=== PATIENT | male | born 1945 | race Caucasian/White ===

== ENCOUNTER → 2016-05-14 | Outpatient (CLI) | payer OTHER ==
[~2016-05-14] MED LIST: ACET1TAB84 PO; ADVIN10/60 INH; AMLO-110 PO; ATRIN INH; CYAN10005 PO; EZET10TA63 PO; LEVO175T25 PO; MULT-351 PO; NRN/300 PO; PANT40TA PO; QUIN20TA30 PO; TRAM-10 PO
[2016-05-14 12:53] LABS: BLOOD UREA NITROGEN 20 mg/dl (7-18); BUN/CREATININE RATIO 21.7 (10-20); CALCIUM 8.2 mg/dl (8.5-10.1); CARBON DIOXIDE 27 mmol/L (21-32); CHLORIDE 106 mmol/L (98-107); GLUCOSE 107 mg/dl (70-99); SODIUM 144 mmol/L (136-145)
[2016-05-14 12:57] LABS: ESTIMATED AVERAGE GLUCOSE 126 mg/dl; HA1C FLAG Normal (Normal)
== END | disposition home or self-care (01) ==
LOC: C.LABPVFM 08:05
PROVIDERS: ATTEND Family Medicine
DX: E11.9 Type 2 diabetes mellitus without complications (principal); I10 Essential (primary) hypertension

== ENCOUNTER → 2016-09-17 | Outpatient (CLI) | payer OTHER ==
[2016-09-17 14:15] LABS: BLOOD UREA NITROGEN 22 mg/dl (7-18); BUN/CREATININE RATIO 23.8 (10-20); CALCIUM 8.5 mg/dl (8.5-10.1); CARBON DIOXIDE 32 mmol/L (21-32); CHLORIDE 107 mmol/L (98-107); CREATININE 0.92 mg/dl (0.60-1.40); GLUCOSE 92 mg/dl (70-99); POTASSIUM 4.1 mmol/L (3.5-5.1); SODIUM 142 mmol/L (136-145)
[2016-09-17 14:29] LABS: CHOLESTEROL 162 mg/dl (0-200); CHOLESTEROL/HDL RATIO 2.7; HDL CHOLESTEROL 59 mg/dl; LDL CHOLESTEROL CALCULATED 85 mg/dl; TRIGLYCERIDES 92 mg/dl (0-150); VERY LOW DENSITY LIPOPROT CALC 18 mg/dl
== END | disposition home or self-care (01) ==
LOC: C.LABPVFM 07:22
PROVIDERS: ATTEND Family Medicine
DX: I10 Essential (primary) hypertension (principal); E03.9 Hypothyroidism, unspecified

== ENCOUNTER → 2017-01-07 | Outpatient (CLI) | payer OTHER ==
[2017-01-07 13:00] LABS: ESTIMATED AVERAGE GLUCOSE 134 mg/dl; HA1C FLAG Normal (Normal)
[2017-01-07 13:06] LABS: BLOOD UREA NITROGEN 20 mg/dl (7-18); BUN/CREATININE RATIO 23.1 (10-20); CARBON DIOXIDE 29 mmol/L (21-32); CHLORIDE 105 mmol/L (98-107); CREATININE 0.85 mg/dl (0.60-1.40); GLUCOSE 88 mg/dl (70-99); POTASSIUM 4.2 mmol/L (3.5-5.1); SODIUM 140 mmol/L (136-145)
== END | disposition home or self-care (01) ==
LOC: C.LABPVFM 07:21
PROVIDERS: ATTEND Family Medicine
DX: I10 Essential (primary) hypertension (principal); R73.09 Other abnormal glucose

== ENCOUNTER → 2017-03-14 | Outpatient (CLI) | payer OTHER ==
[2017-03-15 06:06] LABS: ESTIMATED AVERAGE GLUCOSE 131 mg/dl; HA1C FLAG Normal (Normal)
== END | disposition home or self-care (01) ==
LOC: C.LABPVFM 13:49
PROVIDERS: ATTEND Family Medicine
DX: G62.9 Polyneuropathy, unspecified (principal); R73.09 Other abnormal glucose

== ENCOUNTER → 2017-04-22 | Outpatient (CLI) | payer OTHER ==
--- NOTE | 2017-04-22 11:40 | DIAGNOSTIC IMAGING REPORT ---
CERVICAL WITHOUT CONTRAST HISTORY: 71 years-old Male NECK PAIN chronic neck pain with radiation into the bilateral upper extremities. History of prior neck surgery. COMPARISON: Cervical spine radiographs 04/19/2017 TECHNIQUE: Multiplanar multisequence MRI of the cervical spine was obtained without contrast. FINDINGS: 10 x 9 m area of increased T2 signal is noted involving the gabrielle as seen on image 8 of series 4 and image 8 of series 5. The remaining imaged posterior fossa structures are unremarkable. Signal within the cervical spinal cord is within normal limits. Mild Modic type I endplate changes are seen involving the inferior endplate T1. No acute fracture or subluxation. No significant bone marrow edema identified. There is bony fusion of the C6 and C7 vertebral bodies. 4 mm anterolisthesis C4 on C5 is noted, likely secondary to underlying facet disease. At least moderate degenerative changes are seen at the C1-C2 articulation. C2-C3: Moderate intervertebral disc space narrowing with uncovertebral spurring, moderate facet arthrosis and broad-based posterior disc bulge resulting in mild central canal and mild bilateral foraminal narrowing. C3-C4: Moderate to severe intervertebral disc space narrowing with circumferential annular disc bulge, posterior spondylitic spurring and moderate facet arthrosis. There is moderate central canal narrowing with AP dimension of the thecal sac measuring 6 mm. There is moderate right and mild to moderate left foraminal narrowing. C4-C5: Moderate intervertebral disc space narrowing with 4 mm anterolisthesis. Broad-based posterior disc bulge with posterior spondylitic spurring is noted in addition to moderate facet arthrosis. Findings cause mild central canal and mild bilateral foraminal narrowing. C5-C6: Moderate to severe intervertebral disc space narrowing with small posterior disc osteophyte complex and moderate facet arthrosis. Mild flattening of the ventral thecal sac without central canal narrowing. Mild to moderate bilateral foraminal narrowing. C6-C7: Bony fusion of the vertebral bodies at this level with mild posterior spondylitic spurring and mild facet arthrosis. Central canal and neuroforamen are patent. C7-T1: Moderate to severe intervertebral disc space narrowing with broad-based posterior disc osteophyte complex formation and moderate facet arthrosis. Flattening of the ventral thecal sac without significant central canal narrowing. Mild left and moderate to severe right foraminal narrowing. T1-T2: Moderate intervertebral disc space narrowing with broad-based posterior disc osteophyte complex and moderate facet arthrosis. Mild central canal and moderate right foraminal narrowing on the sagittal images alone. IMPRESSION: 1. Ill-defined area of increased T2 signal involving the central gabrielle measures up to 10 mm. This is nonspecific and could be further evaluated with MRI of the brain. 2. Multilevel intervertebral disc space narrowing, endplate spurring and facet arthrosis as detailed above. Moderate central canal narrowing is present at C3-C4 with mild central canal stenosis at C2-C3, C4-C5 and T1-T2. 3. Bony fusion of the C6 and C7 vertebral bodies. 4. 4 mm anterolisthesis C4 on C5, likely secondary to long-standing facet arthropathy. The above report was generated using voice recognition software. It may contain grammatical, syntax or spelling errors. Electronically signed by: Artur Padron M.D. 04/22/2017 11:38 AM Dictated Date/Time: 04/22/2017 9:38 AM
== END | disposition home or self-care (01) ==
LOC: C.MRI 08:31
PROVIDERS: ATTEND Orthopaedic Surgery Orthopaedic Surgery of the Spine
DX: M47.12 Other spondylosis with myelopathy, cervical region (principal); M54.2 Cervicalgia

== ENCOUNTER → 2017-05-12 | Outpatient (CLI) | payer OTHER | END | disposition home or self-care (01) | LOC: C.LABPVFM 14:19 | PROVIDERS: ATTEND Family Medicine | DX: M79.1 Myalgia (principal); M60.9 Myositis, unspecified ==

== ENCOUNTER → 2017-08-16 | Outpatient (CLI) | payer OTHER ==
[2017-08-16 13:12] LABS: BASO % 0.9 %; BASO ABS # 0.05 K/uL (0-0.2); EOS % 0.5 %; EOS ABS # 0.03 K/uL (0-0.5); HEMATOCRIT 45.4 % (42-52); HEMOGLOBIN 14.6 g/dL (14.0-18.0); IG# 0.01 K/uL (0.00-0.02); LYMPH % 21.2 %; LYMPH ABS # 1.19 K/uL (1.2-3.4); MEAN CELL VOLUME 88.2 fL (80-100); MEAN CORPUSCULAR HEMOGLOBIN 28.3 pg (25-34); MEAN CORPUSCULAR HGB CONC 32.2 g/dl (32-36); MEAN PLATELET VOLUME 10.2 fL (7.4-10.4); MONO ABS # 0.73 K/uL (0.11-0.59); NEUT % 64.2 %; PLATELET COUNT 350 K/uL (130-400); RED CELL DISTRIBUTION WIDTH CV 15.4 % (11.5-14.5); WHITE BLOOD COUNT 5.61 K/uL (4.8-10.8)
[2017-08-16 14:25] LABS: ALBUMIN 4.3 gm/dl (3.4-5.0); ALT/SGPT 38 U/L (12-78); BLOOD UREA NITROGEN 17 mg/dl (7-18); CALCIUM 8.9 mg/dl (8.5-10.1); CARBON DIOXIDE 28 mmol/L (21-32); CHOLESTEROL 160 mg/dl (0-200); CREATININE 1.03 mg/dl (0.60-1.40); GLUCOSE 100 mg/dl (70-99); POTASSIUM 3.9 mmol/L (3.5-5.1); SODIUM 138 mmol/L (136-145)
[2017-08-16 14:36] LABS: ALKALINE PHOSPHATASE 58 U/L (45-117); AST/SGOT 23 U/L (15-37); LDL CHOLESTEROL CALCULATED 85 mg/dl
== END | disposition home or self-care (01) ==
LOC: C.LABPVFM 08:46
PROVIDERS: ATTEND Family Medicine
DX: E03.9 Hypothyroidism, unspecified (principal); K21.0 Gastro-esophageal reflux disease with esophagitis; M54.16 Radiculopathy, lumbar region; E78.5 Hyperlipidemia, unspecified; K57.32 Diverticulitis of large intestine without perforation or abscess without bleeding

== ENCOUNTER 2017-12-24 11:55 | Emergency (ER) | payer OTHER ==
[~2017-12-24] VITALS: Ht 167.6 cm; Wt 106.0 kg
[~2017-12-24 11:55] MED LIST changes: -ADVIN25/60 INH; -LEVO175T PO; -LISI-726 PO; -MELO-84 PO; -RIVA1TAB7 OR
[2017-12-24 12:04] VITALS: TEMP 36.9; Ht 167.6 cm; Wt 106.0 kg
--- NOTE | 2017-12-24 12:22 | EMERGENCY ROOM VISIT NOTE ---
History Report prepared by Darren: Alli Asher Under the Supervision of: Dr. Orlando Nugent M.D. First contact with patient: 12:08 Chief Complaint: LEG PAIN,LEG INJURY Stated Complaint: PAIN & SWELLING IN LEFT FOOT & LEG History of Present Illness The patient is a 72 year old male who presents to the Emergency Room with complaints of constant pain in the left lower extremity that began at 1600 yesterday, 20 hours ago. The patient states that he was sitting at the kitchen table when the pain began and he denies any traumatic events. The patient denies any history of blood clots or anticoagulation use. He also denies any chest pain or shortness of breath. He does note that he has been being followed for some pain in the left ankle. He has had x-rays and an US performed on the LLE already today and was told to come to the emergency department. Source of History: patient Onset: 20 hours ago Position: leg (Lefty) Timing: constant Modifying Factors (Worsening): other (Denies trauma) Associated Symptoms: No chest pain, No SOB Review of Systems See HPI for pertinent positives and negatives. A total of ten systems were reviewed and were otherwise negative. Past Medical & Surgical Medical Problems: (1) Bronchitis (2) Cervicalgia (3) Chest pain (4) Chronic lower back pain (5) Chronic reflux esophagitis (6) Diabetes (7) Diverticulitis of the colon (8) Dysmetabolic syndrome X (9) Hypertension (10) Hypothyroidism (11) Kidney stones (12) Pneumonia Family History Diabetes mellitus FH: cancer FH: heart disease Hypertension Seizures Social History Smoking Status: Never Smoker Marital Status: Housing Status: lives with family Occupation Status: employed Current/Historical Medications Scheduled Acetaminophen (Tylenol Arthritis Ext Rel), 650 MG PO Q6 Amlodipine (Norvasc), 5 MG PO DAILY Cyanocobalamin (Vitamin B-12), 1,000 MCG PO DAILY Ezetimibe (Zetia), 10 MG PO DAILY Fluticasone Prop/Salmeterol (Advair Diskus 250/50 60 Dose), 1 PUFF INH BID Gabapentin (Neurontin), 300 MG PO BID Levothyroxine Sodium (Synthroid), 175 MCG PO DAILY Lisinopril (Lisinopril), 20 MG PO DAILY Multiple Vitamin (Multi Vitamin Mens), 1 TAB PO DAILY Pantoprazole (Protonix), 40 MG PO DAILY Rivaroxaban (Xarelto Starter Pack 15 & 20 mg), 15 MG OR BID Tramadol (Ultram), 50 MG PO 5XD Scheduled PRN Ipratropium Dunnell (Atrovent Hfa), 2 PUFFS INH QID PRN for SOB/Wheezing Meloxicam (Mobic), 15 MG PO DAILY PRN for Pain Allergies Coded Allergies: Clonidine (Verified Allergy, Intermediate, EDEMA/HIVES, 06/11/15) Codeine (Verified Allergy, Mild, RASH, 06/11/15) Adhesives (Verified Allergy, Unknown, TAPE, 06/11/15) Meperidine (Verified Allergy, Unknown, SWELLING, 06/11/15) Ondansetron (Verified Allergy, Unknown, swelling, 06/11/15) Sulfa Drugs (Verified Allergy, Unknown, BACTRIM, 06/11/15) Trimethoprim (Verified Allergy, Unknown, BACTRIM, 06/07/13) Zoster Vaccine Live (Verified Allergy, Unknown, TAKES STERIOD INJECTIONS, 12/24/17) Physical Exam Vital Signs Date Time Temp Pulse Resp B/P (MAP) Pulse Ox O2 Delivery O2 Flow Rate FiO2 12/24/17 12:55 73 20 160/89 96 12/24/17 12:04 36.9 72 18 140/77 97 Room Air Physical Exam Physical Exam GENERAL: He is oriented to person, place, and time. He appears well-developed and well-nourished. He does not appear distressed. HENT: Exam performed. Head: Normocephalic and atraumatic. Right Ear: External ear normal. No mastoid tenderness. Left Ear: External ear normal. No mastoid tenderness. Mouth/Throat: The oropharynx is clear and moist. No trismus in the jaw. No dental abscesses or uvula swelling. No oropharyngeal exudate or tonsillar abscesses. EYES: Conjunctivae and EOM are normal. Pupils are equal, round, and reactive to light. Right eye exhibits no discharge. Left eye exhibits no discharge. No scleral icterus. NECK: Normal range of motion. Neck supple. No JVD present. No spinous process tenderness present. No carotid bruit present. No rigidity. No tracheal deviation and normal range of motion present. No Brudzinski's sign and no Kernig 's sign noted. CV: Normal rate, regular rhythm, normal heart sounds and intact distal pulses. There is no peripheral edema. Palpable radial pulses bue. PULM/CHEST: Effort normal and breath sounds normal. No respiratory distress. No stridor. He has no wheezes. He has no rales. Chest Wall: He exhibits no tenderness. ABD: The abdomen is soft. Bowel sounds are normal. He has no distension. No mass is present. There is no tenderness. There is no rebound, no guarding, no Martell's sign and no tenderness at McBurney's point. Rovsig negative. MUSC/SKEL: Normal range of motion. There is pain on palpation of the left calf and left popiteal area. Palpable DP and PT pulses bilaterally. LYMPH: No cervical adenopathy. NEURO: He is alert and oriented to person, place, and time. He has normal strength. No cranial nerve deficit or sensory deficit. Coordination and gait normal. GCS eye subscore is 4. GCS verbal subscore is 5. GCS motor subscore is 6. Cerebellar tests wnl. SKIN: Skin is warm and dry. He is not diaphoretic. PSYCH: He has a normal mood and affect. Behavior is normal. Judgment and thought content normal. Medical Decision & Procedures ED Course 1217: The patient was evaluated in room B5. A complete history and physical exam was performed. Review of patient's outpatient studies today show LLE DVT. Patient reports no chest pain or difficulty breathing. Will discharge with Xarelto. DISCHARGE - Plan of care discussed with patient and questions answered. The patient was given both verbal and printed discharge instructions. The patient verbalized understanding and ability to comply. The patient is to seek outpatient follow up as noted in the discharge instructions. The patient verbalized understanding and ability to comply. The patient is discharged in stable condition. The patient was instructed to return for worsening symptoms. Medical Decision The patient was evaluated in room B5. A complete history and physical exam was performed. Review of patient's outpatient studies today show LLE DVT. Patient reports no chest pain or difficulty breathing. Will discharge with Xarelto. DISCHARGE - Plan of care discussed with patient and questions answered. The patient was given both verbal and printed discharge instructions. The patient verbalized understanding and ability to comply. The patient is to seek outpatient follow up as noted in the discharge instructions. The patient verbalized understanding and ability to comply. The patient is discharged in stable condition. The patient was instructed to return for worsening symptoms. Medication Reconcilliation Current Medication List: was personally reviewed by me Blood Pressure Screening Patient's blood pressure: Elevated blood pressure Blood pressure disposition: Elevated BP felt to be situational Impression Primary Impression: Deep vein thrombosis Scribe Attestation The scribe's documentation has been prepared under my direction and personally reviewed by me in its entirety. I confirm that the note above accurately reflects all work, treatment, procedures, and medical decision making performed by me. The chart was completed utilizing [employer] Speech voice recognition software. Grammatical errors, random word insertions, pronoun errors, and incomplete sentences are an occasional consequence of this system due to software limitations, ambient noise, and hardware issues. Any formal questions or concerns about the content, text, or information contained within the body of this dictation should be directly addressed to the physician for clarification. Departure Information Dispostion Home / Self-Care Prescriptions Rivaroxaban (Xarelto Starter Pack 15 & 20 mg) 1 Tab Tab 15 MG OR BID for 21 Days, #42 TABS take 15 mg PO BID with food for 21 days take 20 mg PO daily for 6 months after Prov: Orlando Nugent M.D. 12/24/17 Referrals No Doctor, Assigned (PCP) Patient Instructions My [facility] Problem Qualifiers Primary Impression: Deep vein thrombosis DVT location: lower extremity Affected thrombotic vein of extremity: unspecified vein of extremity Chronicity: acute Laterality: left Qualified Codes: I82.402 - Acute embolism and thrombosis of unspecified deep veins of left lower extremity
[2017-12-24] MEDS ORDERED: RIVA1TAB7 OR (12:34)
[2017-12-24 12:55] VITALS: BP 160/89; PULSE 73; O2SAT 96
[2017-12-24] MEDS ORDERED: ATRIN INH (12:59)
[2017-12-24] MEDS ORDERED: LEVO175T PO (12:59)
[2017-12-24] MEDS ORDERED: MELO-84 PO (12:59)
[2017-12-24] MEDS ORDERED: ADVIN25/60 INH (12:59)
[2017-12-24] MEDS ORDERED: LISI-726 PO (12:59)
== END 2017-12-24 12:57 | disposition home or self-care (01) ==
LOC: C.EDB 11:57
DX: I82.402 Acute embolism and thrombosis of unspecified deep veins of left lower extremity (principal); I10 Essential (primary) hypertension; E03.9 Hypothyroidism, unspecified; K21.0 Gastro-esophageal reflux disease with esophagitis; M54.5 Low back pain; G89.29 Other chronic pain; Z88.8 Allergy status to other drugs, medicaments and biological substances; Z88.6 Allergy status to analgesic agent; Z88.2 Allergy status to sulfonamides; Z88.1 Allergy status to other antibiotic agents; Z88.7 Allergy status to serum and vaccine

== ENCOUNTER → 2017-12-24 | Outpatient (CLI) | payer OTHER ==
[~2017-12-24] MED LIST changes: +ADVIN25/60 INH; -AMLO-110 PO; +AMLO5TAB3 PO; +LEVO175T PO; +LISI-726 PO; +MELO-84 PO; +RIVA1TAB7 OR
--- NOTE | 2017-12-24 11:14 | DIAGNOSTIC IMAGING REPORT ---
L ANKLE MIN 3 VIEWS ROUTINE CLINICAL HISTORY: 72 years-old Male presenting with M79.89 Left leg swelling left. TECHNIQUE: Frontal, mortise, and lateral views of the left ankle were obtained. COMPARISON: None. FINDINGS: Ankle mortise intact. Degenerative changes of the ankle mortise. Enthesophytes at the insertion of the Achilles tendon and origin of the plantar fascia. No acute fracture or malalignment. Talar dome intact. Phleboliths noted. Mild diffuse subcutaneous edema suggested. IMPRESSION: 1. No acute osseous injury. 2. Degenerative changes of the ankle as above. Electronically signed by: Peter Bhardwaj M.D. 12/24/2017 11:13 AM Dictated Date/Time: 12/24/2017 11:12 AM
--- NOTE | 2017-12-24 11:24 | DIAGNOSTIC IMAGING REPORT ---
L FOOT MIN 3 VIEWS ROUTINE CLINICAL HISTORY: 72 years-old Male presenting with M79.89 Left leg swelling left. TECHNIQUE: Frontal, oblique, and lateral views of the left foot were obtained. COMPARISON: None. FINDINGS: Partially visualized degenerative changes in the ankle. Excess renovascular noted. No acute fracture or malalignment. Prominent enthesophyte at the insertion of the Achilles tendon and origin of the plantar fascia. Mild degenerative changes in the midfoot-forefoot junction. Mild degenerative changes of the first metatarsophalangeal joint also suspected though joint spaces preserved. Diffuse soft tissue swelling. IMPRESSION: 1. No acute osseous injury. 2. Degenerative changes as above. Electronically signed by: Peter Bhardwaj M.D. 12/24/2017 11:23 AM Dictated Date/Time: 12/24/2017 11:21 AM
--- NOTE | 2017-12-24 11:50 | DIAGNOSTIC IMAGING REPORT ---
L VENOUS DOPP LOWER EXT UNILAT CLINICAL HISTORY: 72 years-old Male presenting with M79.89 Left leg swelling left. TECHNIQUE: Real-time grayscale and color and spectral Doppler ultrasound imaging of the veins of the left lower extremity was performed. Compression and augmentation were also utilized. COMPARISON: None. FINDINGS: LEFT: Common femoral vein: Patent. Greater saphenous vein: Patent. Deep femoral vein: Patent. Femoral vein: Patent. Popliteal vein: Patent. Calf veins: Duplicated posterior tibial veins, one of which demonstrates linear echogenic filling defects suggesting chronic thrombus. Filling defect is noted throughout the proximal to distal length of this vein. Anterior tibial and peroneal veins patent. Other: Note made of a 6.2 x 2.1 x 4.4 cm anechoic collection in the popliteal fossa of the knee, suggesting popliteal cyst. IMPRESSION: Deep venous thrombosis in one of 2 duplicated posterior tibial veins. No proximal extension. The appearance may favor chronic thrombus though an acute component cannot be excluded. The report will be called/faxed according to standard departmental protocol. Electronically signed by: Peter Bhardwaj M.D. 12/24/2017 11:48 AM Dictated Date/Time: 12/24/2017 11:46 AM
== END | disposition home or self-care (01) ==
LOC: C.RAD 10:26
PROVIDERS: ATTEND Internal Medicine
DX: M79.89 Other specified soft tissue disorders (principal); M19.072 Primary osteoarthritis, left ankle and foot; I82.442 Acute embolism and thrombosis of left tibial vein

== ENCOUNTER 2018-08-23 20:01 | Inpatient (IN) ==
[2018-08-23 20:51] LABS: Appearance Urine Clear (Clear); Bacteria Urine Automated Negative (Negative); Bilirubin Urine Negative (Negative); Blood Urine Negative (Negative); Cast Urine Automated 0 /lpf (0-5); Color Urine Yellow; Glucose Urine UA Negative (Negative); Ketones Urine Negative (Negative); Leukocyte Esterase Urine Negative (Negative); Nitrite Urine Negative (Negative); RBC Urine Automated 0-4 /hpf (0-4); Specific Gravity Urine 1.017 (1.000-1.030); Urobilinogen Urine Negative (Negative); WBC Urine Automated 0 /hpf (0-5); pH Urine 7.5 (4.5-7.5)
--- NOTE | 2018-08-23 20:51 | XRay Report ---
XR chest 1V portable CLINICAL HISTORY: Chest Pain dyspnea COMPARISON STUDY: 01/24/2018 FINDINGS: Mild chronic bibasilar interstitial change. No acute infiltrate. Mild stable cardiomegaly. IMPRESSION: Mild cardiomegaly. Otherwise negative study. The above report was generated using voice recognition software. It may contain grammatical, syntax or spelling errors. Electronically signed by: Nik Mendoza M.D. 08/23/2018 8:49 PM
[2018-08-23 20:59] LABS: Basophils # (auto) 0.03 K/uL (0-0.2); Basophils % (auto) 0.4 %; Eosinophils # (auto) 0.07 K/uL (0-0.5); Hematocrit (blood only) 40.6 % (42-52); Hemoglobin 12.9 g/dL (14.0-18.0); Immature Granulocytes # (auto) 0.02 K/uL (0.00-0.02); Immature Granulocytes % (auto) 0.3 %; Lymphocytes # (auto) 1.71 K/uL (1.2-3.4); Lymphocytes % (auto) 24.2 %; Mean Corpuscular Hgb Conc 31.8 g/dL (32-36); Mean Corpuscular Volume 83.9 fL (80-100); Mean Platelet Volume 9.7 fL (7.4-10.4); Monocytes # (auto) 1.09 K/uL (0.11-0.59); Monocytes % (auto) 15.4 %; Neutrophils # (auto) 4.15 K/uL (1.4-6.5); Neutrophils % (auto) 58.7 %; Platelet Count 235 K/uL (130-400); RDW Coefficient of Variation 16.6 % (11.5-14.5); RDW Standard Deviation 50.7 fL (36.4-46.3); Red Blood Count 4.84 M/uL (4.7-6.1); White Blood Count 7.07 K/uL (4.8-10.8)
[2018-08-23 21:01] LABS: Protein Urine Negative (Negative)
[2018-08-23 21:10] LABS: Partial Thromboplastin Time 27.9 Seconds (21.0-31.0); Prothrombin Time 10.7 Seconds (9.0-12.0)
[2018-08-23 21:17] LABS: Alanine Aminotransferase 31 U/L (12-78); Albumin Level 3.9 gm/dl (3.4-5.0); Aspartate Aminotransferase 20 U/L (15-37); Blood Urea Nitrogen 18 mg/dl (7-18); Calcium 8.9 mg/dl (8.5-10.1); Carbon Dioxide 27 mmol/L (21-32); Chloride 106 mmol/L (98-107); Creatinine Clr Calc Pharmacy 79.9 ml/min; Est GFR (African American) 90.7; Est GFR (Non-African American) 78.2; Glucose 115 mg/dl (70-99); Potassium 3.9 mmol/L (3.5-5.1); Sodium 140 mmol/L (136-145)
[2018-08-23 21:22] LABS: Alkaline Phosphatase 58 U/L (45-117); Bilirubin,Total 0.3 mg/dl (0.2-1); Creatine Kinase 286 U/L (39-308); Globulin 3.8 gm/dl (2.5-4.0); Total Protein 7.7 gm/dl (6.4-8.2); Troponin I < 0.015 ng/ml (0-0.045)
[2018-08-23] MEDS ORDERED: ACETAMINOPHEN 1,000 MG/100 ML VIAL IV STA (21:59)
[2018-08-23] MEDS ORDERED: GI COCKTAIL ED USE PO ONE (21:59)
[2018-08-23] MEDS ORDERED: SODIUM CHLORIDE 0.9% 1000ML 500 ML IV ONE (21:59)
[2018-08-23] MEDS ORDERED: FAMOTIDINE 20 MG TAB PO ONE (21:59)
[2018-08-23] MEDS ORDERED: OPTIRAY 320 125ml IV PRN (22:26)
--- NOTE | 2018-08-23 22:37 | CT Scan Report ---
CT angio chest PE protocol CT DOSE: 556.39 mGy.cm HISTORY: Pain PE TECHNIQUE: Multiaxial CT images of the chest were performed following the intravenous administration of contrast to evaluate the pulmonary arteries. Maximal intensity projection images were also obtaine d. A dose lowering technique was utilized adhering to the principles of ALARA. COMPARISON STUDY: 06/11/2014 FINDINGS: The thoracic aorta is normal in course and caliber. There are filling defects within the right lower lobe pulmonary arterial vasculature as well as the l eft lower lobe pulmonary arterial vasculature. Less prominent findings are seen in the upper lobe regions bilaterally. There is no evidence for a saddle embolus. Heart is mildly enlarged. Lungs are grossly clear. IMPRESSION: 1. Extensive bilateral acute pulmonary emboli. 2. Lungs are grossly clear. The above report was generated using voice recognition software. It may contain grammatical, syntax or spelling errors. Electronically signed by: Nik Mendoza M.D. 08/23/2018 10:35 PM
[2018-08-23] MEDS ORDERED: ENOXAPARIN 1 MG/KG SC STA (22:47)
[2018-08-23] MEDS ORDERED: ENOXAPARIN INJ 120 MG/0.8 ML SYR SQ STA (22:58)
[2018-08-24] MEDS ORDERED: MAGNESIUM HYDROXIDE SUSP 30 ML UDC PO PRN (00:10)
[2018-08-24] MEDS ORDERED: ACETAMINOPHEN 325 MG TAB PO PRN (00:10)
[2018-08-24] MEDS ORDERED: POLYETHYLENE (MIRALAX) 17 GM PACK PO PRN (00:10)
[2018-08-24] MEDS ORDERED: ALUMINUM/MAGNESIUM SUSP 30 ML UDC PO PRN (00:10)
--- NOTE | 2018-08-24 00:33 | History & Physical Report ---
Date of Service August 24, 2018 Assessment & Plan (1) Bilateral pulmonary embolism: 73-year-old male with a recent history of DVT in December treated with Xarelto, completed him July presents with shortness of breath Bilateral pulmonary embolism, hypoxia Admit to [facility] telemetry, continuous pulse ox, oxygen as needed Started on therapeutic Lovenox, 24-hour dose in the EDwill defer to day team regarding long-term anticoagulation Previously saw Denis for DVT Chest pain Initial troponin was negative, will continue to trend EKG did not show any acute changes COPD Continue Advair, Atrovent Patient needs more education, states that he takes Atrovent as rescue inhalerfollow-up Hypertension Continue lisinopril, amlodipine Chronic back pain Continue gabapentin, oxycodone GERD Continue PPI DVT prophylaxis Lovenox FEN Heart healthy CODE STATUS Full (2) COPD (chronic obstructive pulmonary disease): (3) Deep vein thrombosis: (4) Chest pain: (5) Hypothyroidism: (6) Hypertension: (7) Chronic reflux esophagitis: (8) Chronic lower back pain: History of Present Illness Primary Care Provider: Bony Zurita MD 73-year-old male with a past medical history of COPD, hypertension, hyperlipidemia and recent DVT (December 2017), who completed Xarelto treatment at the beginning of July presents to the hospital with shortness of breath and chest pain. He states that he started to feel short of breath since Tuesday and the symptoms have progressively gotten worse. He states that it is worse when he goes upstairs. Patient denies having any hemoptysis or calf tenderness. He describes having some chest painsharp pain when he takes a deep breath or leans forward. He says that he is recovering from a recent bout of diverti culitis and has been less active recently. Patient denied being bedridden. He denies any recent surgeries, long car rides or malignancy. Patient was diagnosed with a left lower extremity DVT in December and was treated for 6 months with Xarelto. He was seeing Dr. Barrios at that time. Constitutional; no fevers, chills, night sweats Abdomen; no abdominal pain, no nausea/vomiting/diarrhea Allergies Allergy/AdvReac Type Severity Reaction Status Date / Time Sulfa (Sulfonamide Allergy Severe Anaphylaxis Verified 08/23/18 23:38 Antibiotics) A CHILD trimethoprim Allergy Severe Anaphylaxis- Verified 08/23/18 23:38 A CHILD adhesive Allergy Intermediate TAPE-SKIN Verified 08/23/18 23:38 IRRITATION clonidine Allergy Intermediate EDEMA/HIVES Verified 08/23/18 23:38 meperidine Allergy Intermediate SWELLING Verified 08/23/18 23:38 ondansetron Allergy Intermediate swelling Verified 08/23/18 23:38 codeine Allergy Mild RASH Verified 08/23/18 23:38 zoster vaccine live Allergy Unknown TAKES Verified 08/23/18 23:38 STERIOD INJECTIONS Home Medications Home Medications Medication Instructions Recorded Confirmed Type acetaminophen 650 mg PO Q6H 01/24/18 08/23/18 History amlodipine 5 mg PO DAILY 01/24/18 08/23/18 History cyanocobalamin (vitamin B-12) 1,000 mcg PO DAILY 01/24/18 08/23/18 History [Vitamin B-12] ezetimibe [Zetia] 10 mg PO DAILY 01/24/18 08/23/18 History fluticasone propion-salmeterol 1 puff INHALATION BID 01/24/18 08/23/18 History [Advair Diskus] gabapentin 300 mg PO BID 01/24/18 08/23/18 History levothyroxine [Synthroid] 175 mcg PO DAILY 01/24/18 08/23/18 History lisinopril 20 mg PO HS 01/24/18 08/23/18 History wizfunzf-kzv-bcpdk-vit K-lycop 1 tab PO DAILY 01/24/18 08/23/18 History [Men's Multivitamin] pantoprazole 40 mg PO DAILY 01/24/18 08/23/18 History tramadol 50 mg PO QID 01/24/18 08/23/18 History diclofenac sodium 2 g TOPICAL QID PRN 08/23/18 08/23/18 History ipratropium bromide [Atrovent HFA] 1 puff INHALATION Q6H PRN 08/23/18 08/23/18 History Past Med/Surg History Medical History Chronic lower back pain (Chronic) Cervicalgia (Chronic) Chronic reflux esophagitis (Chronic) Hypertension (Chronic) Hypothyroidism (Chronic) Dysmetabolic syndrome X (Chronic) Diabetes (Chronic) Deep vein thrombosis (Acute) Family History Other Family history non-contributory Social History Preferred Language: Gabonese Communication Ability: Effective Probate Judge Required: No Beliefs That Will Affect Care: None Current Living Situation: Spouse Other Information That Helps Us Care for You: No Feels Safe at Home: Yes Safety Concerns: Feels Safe At This Time Smoking Status: Former smoker Tobacco Type: cigarettes Hx Alcohol Use: No Hx Substance Use: No Review of Systems Review of Systems: All systems reviewed & are unremarkable except as noted in HPI & below Physical Exam Vital Signs (Past 24 Hours): Last Vital Signs Temp 36.7 C 08/23/18 20:06 Pulse 99 H 08/24/18 00:11 Resp 18 08/24/18 00:11 BP 159/93 H 08/24/18 00:11 Pulse Ox 93 08/24/18 00:11 Constitutional: WD/WN, vitals as above Eyes: PERRL, conjunctivae normal, anicteric sclerae ENMT: external ear and nose normal, oropharynx normal Neck: trachea midline, no thyromegaly Respiratory: normal respiratory effort, lungs clear to auscultation Cardiovascular: RRR, no murmur, no edema Gastrointestinal (Abdomen): normal bowel sounds, soft, nontender, no hepatosplenomegaly Musculoskeletal: no cyanosis or clubbing, extremities motor strength 5/5 +1 bilateral lower extremity edema, no calf tenderness, no erythema Neurologic: PERRL, EOMI, accommodation nl, no face palsy, no dysarthria Psychiatric: A+Ox3, euthymic affect Results & Data Laboratory Results [place], [place] [phone] CT Scan Report Patient: ADAMARIS HOLCOMB JrAdmit Date: 08/23/18 MR#: [id number] Acct ID:[id number]: Date: [address] Zip: [place] [address] Age: 73Location: ED Sex: M Room/Bed: Att Phy: Diagnosis: CHEST PAIN, SOB Bree Phy: Bony Zurita MDService Date: 08/23/18 Fam Phy: Interpreting Phy: Nik Mendoza MD Admit Phy: Ordering Phy: Grzegorz Villaseñor M.D. cc: ~ CT angio chest PE protocol CT DOSE: 556.39 mGy.cm HISTORY: Pain PE TECHNIQUE: Multiaxial CT images of the chest were performed following the intravenous administration of contrast to evaluate the pulmonary arteries. Maximal intensity projection images were also obtained. A dose lowering technique was utilized adhering to the principles of ALARA. COMPARISON STUDY: 06/11/2014 FINDINGS: The thoracic aorta is normal in course and caliber. There are filling defects within the right lower lobe pulmonary arterial vasculature as well as the left lower lobe pulmonary arterial vasculature. Less prominent findings are seen in the upper lobe regions bilaterally. There is no evidence for a saddle embolus. Heart is mildly enlarged. Lungs are grossly clear. IMPRESSION: 1. Extensive bilateral acute pulmonary emboli. 2. Lungs are grossly clear. The above report was generated using voice recognition software. It may contain grammatical, syntax or spelling errors. Electronically signed by: Nik Mendoza M.D. 08/23/2018 10:35 PM Dictated: 08/23/182232 Transcribed: 08/23/182232 Laboratory Last Values WBC 7.07 K/uL (4.8-10.8) 08/23/18 20:16 RBC 4.84 M/uL (4.7-6.1) 08/23/18 20:16 Hgb 12.9 g/dL (14.0-18.0) L 08/23/18 20:16 Hct 40.6 % (42-52) L 08/23/18 20:16 MCV 83.9 fL (80-100) 08/23/18 20:16 MCH 26.7 pg (25-34) 08/23/18 20:16 MCHC 31.8 g/dL (32-36) L 08/23/18 20:16 RDW Std Deviation 50.7 fL (36.4-46.3) H 08/23/18 20:16 RDW Coeff of Bindu 16.6 % (11.5-14.5) H 08/23/18 20:16 Plt Count 235 K/uL (130-400) 08/23/18 20:16 MPV 9.7 fL (7.4-10.4) 08/23/18 20:16 Immature Gran % (Auto) 0.3 % 08/23/18 20:16 Neut % (Auto) 58.7 % 08/23/18 20:16 Lymph % (Auto) 24.2 % 08/23/18 20:16 Thomas % (Auto) 15.4 % 08/23/18 20:16 Eos % (Auto) 1.0 % 08/23/18 20:16 Baso % (Auto) 0.4 % 08/23/18 20:16 Immature Gran # (Auto) 0.02 K/uL (0.00-0.02) 08/23/18 20:16 Neut # (Auto) 4.15 K/uL (1.4-6.5) 08/23/18 20:16 Lymph # (Auto) 1.71 K/uL (1.2-3.4) 08/23/18 20:16 Thomas # (Auto) 1.09 K/uL (0.11-0.59) H 08/23/18 20:16 Eos # (Auto) 0.07 K/uL (0-0.5) 08/23/18 20:16 Baso # (Auto) 0.03 K/uL (0-0.2) 08/23/18 20:16 PT 10.7 Seconds (9.0-12.0) 08/23/18 20:16 INR 1.0 (0.9-1.1) 08/23/18 20:16 APTT 27.9 Seconds (21.0-31.0) 08/23/18 20:16 PTT Ratio 1.0 08/23/18 20:16 Sodium 140 mmol/L (136-145) 08/23/18 20:16 Potassium 3.9 mmol/L (3.5-5.1) 08/23/18 20:16 Chloride 106 mmol/L (98-107) 08/23/18 20:16 Carbon Dioxide 27 mmol/L (21-32) 08/23/18 20:16 Anion Gap 7.0 (3-11) 08/23/18 20:16 BUN 18 mg/dl (7-18) 08/23/18 20:16 Creatinine 0.97 mg/dl (0.6-1.4) 08/23/18 20:16 Est Cr Clr Drug Dosing 79.9 ml/min 08/23/18 20:16 Est GFR ( Amer) 90.7 08/23/18 20:16 Est GFR (Non-Af Amer) 78.2 08/23/18 20:16 BUN/Creatinine Ratio 19.0 (10-20) 08/23/18 20:16 Glucose 115 mg/dl (70-99) H 08/23/18 20:16 Calcium 8.9 mg/dl (8.5-10.1) 08/23/18 20:16 Total Bilirubin 0.3 mg/dl (0.2-1) 08/23/18 20:16 AST 20 U/L (15-37) 08/23/18 20:16 ALT 31 U/L (12-78) 08/23/18 20:16 Alkaline Phosphatase 58 U/L (45-117) 08/23/18 20:16 Total Creatine Kinase 286 U/L (39-308) 08/23/18 20:16 CK-MB (CK-2) 7.0 ng/ml (0.5-3.6) H 08/23/18 20:16 CK/CKMB % Calc 2.4 (0-3.0) 08/23/18 20:16 Troponin I < 0.015 ng/ml (0-0.045) 08/23/18 20:16 Total Protein 7.7 gm/dl (6.4-8.2) 08/23/18 20:16 Albumin 3.9 gm/dl (3.4-5.0) 08/23/18 20:16 Globulin 3.8 gm/dl (2.5-4.0) 08/23/18 20:16 Albumin/Globulin Ratio 1.0 (0.9-2) 08/23/18 20:16 Lipase 108 U/L (73-393) 08/23/18 20:16 Urine Color Yellow 08/23/18 20:16 Urine Appearance Clear (Clear) 08/23/18 20:16 Urine pH 7.5 (4.5-7.5) 08/23/18 20:16 Ur Specific [place] 1.017 (1.000-1.030) 08/23/18 20:16 Urine Protein Negative (Negative) 08/23/18 20:16 Urine Glucose (UA) Negative (Negative) 08/23/18 20:16 Urine Ketones Negative (Negative) 08/23/18 20:16 Urine Blood Negative (Negative) 08/23/18 20:16 Urine Nitrite Negative (Negative) 08/23/18 20:16 Urine Bilirubin Negative (Negative) 08/23/18 20:16 Urine Urobilinogen Negative (Negative) 08/23/18 20:16 Ur Leukocyte Esterase Negative (Negative) 08/23/18 20:16 Urine WBC (Auto) 0 /hpf (0-5) 08/23/18 20:16 Urine RBC (Auto) 0-4 /hpf (0-4) 08/23/18 20:16 U Hyaline Cast (Auto) 0 /lpf (0-5) 08/23/18 20:16 U Epithel Cells (Auto) 5-10 /lpf (0-5) H 08/23/18 20:16 Urine Bacteria (Auto) Negative (Negative) 08/23/18 20:16 Supervising Physician Co-Signing Physician Notes Attending addendum: I have physically seen this patient, have supervised the medical residents activities, and agree with the H&P unless as otherwise noted. Assessment and Plan: Bilateral pulmonary emboli/history left lower extremity DVT 12/24 treated with Xarelto/residual chronic DVT per patient- Received therapeutic Lovenox 1.5 mg kilogram subcu by the ED. Lower extremity venous Dopplers ordered. Follow serial troponins and echocardiogram. Continue usual inhalers of Advair and Atrovent. Duo nebs available to use as needed. Consult Dr. Barrios, hematology, who treated previous DVT. Remainder of orders and notations as noted. Resident Activity Tracking Resident Involvement: Resident Care Provided Care Provided: Adult [facility]
[2018-08-24] MEDS ORDERED: IPRATROPIUM BROMIDE HFA INHALER INH PRN (01:25)
[2018-08-24 02:11] LABS: Basophils # (auto) 0.03 K/uL (0-0.2); Basophils % (auto) 0.3 %; Eosinophils # (auto) 0.07 K/uL (0-0.5); Eosinophils % (auto) 0.8 %; Hematocrit (blood only) 38.1 % (42-52); Immature Granulocytes # (auto) 0.01 K/uL (0.00-0.02); Immature Granulocytes % (auto) 0.1 %; Lymphocytes # (auto) 1.87 K/uL (1.2-3.4); Lymphocytes % (auto) 21.4 %; Mean Corpuscular Hgb Conc 31.5 g/dL (32-36); Mean Corpuscular Volume 81.8 fL (80-100); Mean Platelet Volume 9.4 fL (7.4-10.4); Monocytes # (auto) 0.95 K/uL (0.11-0.59); Monocytes % (auto) 10.9 %; Neutrophils # (auto) 5.81 K/uL (1.4-6.5); Neutrophils % (auto) 66.5 %; Platelet Count 241 K/uL (130-400); RDW Coefficient of Variation 16.6 % (11.5-14.5); RDW Standard Deviation 49.4 fL (36.4-46.3); Red Blood Count 4.66 M/uL (4.7-6.1); White Blood Count 8.74 K/uL (4.8-10.8)
--- NOTE | 2018-08-24 02:14 | Emergency Department Note ---
Entered by Jon Chang acting as a scribe for Grzegorz Villaseñor MD History of Present Illness General Chief complaint: Chest Pain Stated complaint: CHEST PAIN, SOB Time Seen by Provider: 08/23/18 21:46 Source: patient Limitations: no limitations History of Present Illness Onset (ago): day(s) 3 Location: chest Pain Consistency: + constant Quality: + constant Relieved By: + rest (prior episodes) Associated symptoms: + chest pain, + cough, + headaches and + shortness of breath The patient is a 73 year old male who presents to the Emergency Room with complaints of constant chest pain starting 3 days ago. The patient states he had an episode of SOB 3 days ago when he was exerting himself and it resolved once he had some rest. He states he had another episode of SOB 2 days ago and it resolved again when he had some rest. He states tonight he climbed the stairs and started to have SOB, and this happened 3 hours ago. He states he had pressure in his chest and has headaches. The patient states he felt normal this morning. He states his baseline includes back pain resulting from multiple back surgeries. He states he has chronic knee pain too because of surgeries. He notes he has left-sided headaches intermittently. He notes he has a history of a blood clot below his knee. He states he was put on blood thinners for 6 months and it ended a month ago. He states he follows up with Dr. Rapp and Dr. Rapp states he has chronic problems with is left leg but does not think it is severe. He states he was seen in the ED on January 24 because he woke up with left- sided headache and bad hearing. The patient notes 3 weeks ago he was treated for a flare-up of diverticulitis. He states he took 10 days of Augmentin. He notes he has a cyst behind his left knee. The patient notes his last stress test was 4 years ago. The patient denies fevers, cold symptoms, and congestion. The patient notes his PCP prescribed him Voltaren and stated he was unable to take Mobic because of his esophagitis. Home Medications Home Medications Medication Instructions Recorded Confirmed Type acetaminophen 650 mg PO Q6H 01/24/18 08/23/18 History amlodipine 5 mg PO DAILY 01/24/18 08/23/18 History cyanocobalamin (vitamin B-12) 1,000 mcg PO DAILY 01/24/18 08/23/18 History [Vitamin B-12] ezetimibe [Zetia] 10 mg PO DAILY 01/24/18 08/23/18 History fluticasone propion-salmeterol 1 puff INHALATION BID 01/24/18 08/23/18 History [Advair Diskus] gabapentin 300 mg PO BID 01/24/18 08/23/18 History levothyroxine [Synthroid] 175 mcg PO DAILY 01/24/18 08/23/18 History lisinopril 20 mg PO HS 01/24/18 08/23/18 History fhkugewc-xcd-edwmy-vit K-lycop 1 tab PO DAILY 01/24/18 08/23/18 History [Men's Multivitamin] pantoprazole 40 mg PO DAILY 01/24/18 08/23/18 History tramadol 50 mg PO QID 01/24/18 08/23/18 History diclofenac sodium 2 g TOPICAL QID PRN 08/23/18 08/23/18 History ipratropium bromide [Atrovent HFA] 1 puff INHALATION Q6H PRN 08/23/18 08/23/18 History Allergies Allergy/AdvReac Type Severity Reaction Status Date / Time Sulfa (Sulfonamide Allergy Severe Anaphylaxis Verified 08/23/18 23:38 Antibiotics) A CHILD trimethoprim Allergy Severe Anaphylaxis- Verified 08/23/18 23:38 A CHILD adhesive Allergy Intermediate TAPE-SKIN Verified 08/23/18 23:38 IRRITATION clonidine Allergy Intermediate EDEMA/HIVES Verified 08/23/18 23:38 meperidine Allergy Intermediate SWELLING Verified 08/23/18 23:38 ondansetron Allergy Intermediate swelling Verified 08/23/18 23:38 codeine Allergy Mild RASH Verified 08/23/18 23:38 zoster vaccine live Allergy Unknown TAKES Verified 08/23/18 23:38 STERIOD INJECTIONS Past Med/Surg History Medical History Chronic lower back pain (Chronic) Cervicalgia (Chronic) Chronic reflux esophagitis (Chronic) Hypertension (Chronic) Hypothyroidism (Chronic) Dysmetabolic syndrome X (Chronic) Diabetes (Chronic) Deep vein thrombosis (Acute) Family History Other Family history non-contributory Social History Preferred Language: [place] Communication Ability: Effective Manager Adult Required: No Beliefs That Will Affect Care: None Current Living Situation: Spouse Other Information That Helps Us Care for You: No Feels Safe at Home: Yes Safety Concerns: Feels Safe At This Time Smoking Status: Former smoker Tobacco Type: cigarettes Hx Alcohol Use: No Hx Substance Use: No Review of Systems See HPI for pertinent positives & negatives. and A total of 10 systems reviewed and were otherwise negative Physical Exam Vital Signs Vital Signs - 24 hr 08/23/18 20:06 08/23/18 22:13 08/23/18 22:18 Temperature 36.7 C Temperature Source Oral Sepsis Recent Fever Within 48 Hours No Sepsis New/Unexplained Change in Mental Status No Sepsis Action Taken by Nursing No Action Required Pulse Rate 110 H Pulse Rate [Apical] 110 H Pulse Rhythm Regular Pulse Rhythm [Apical] Pulse Strength Normal Pulse Strength [Apical] Respiratory Rate 20 16 Respiratory Effort / Characteristics Non-Labored Spontaneous Non-Labored Spontaneous Respiratory Depth Normal Normal Respiratory Pattern Blood Pressure 183/105 H Blood Pressure [Right Arm] 180/93 H Blood Pressure Mean 131 Blood Pressure Mean [Right Arm] 122 Blood Pressure Position Lying Blood Pressure Position [Right Arm] Pulse Oximetry 93 89 L Oxygen Delivery Method Room Air Room Air Nasal Cannula Oxygen Flow Rate 08/23/18 22:31 08/24/18 00:11 08/24/18 01:40 Temperature 36.9 C Temperature Source Oral Sepsis Recent Fever Within 48 Hours Sepsis New/Unexplained Change in Mental Status Sepsis Action Taken by Nursing Pulse Rate Pulse Rate [Apical] 98 H 99 H 100 H Pulse Rhythm Pulse Rhythm [Apical] Regular Regular Regular Pulse Strength Pulse Strength [Apical] Normal Normal Normal Respiratory Rate 16 18 20 Respiratory Effort / Characteristics Non-Labored Spontaneous Non-Labored Spontaneous Non-Labored Respiratory Depth Normal Normal Normal Respiratory Pattern Regular Regular Regular Blood Pressure Blood Pressure [Right Arm] 174/95 H 159/93 H 144/83 H Blood Pressure Mean Blood Pressure Mean [Right Arm] 121 115 103 Blood Pressure Position Blood Pressure Position [Right Arm] Lying Pulse Oximetry 94 93 92 Oxygen Delivery Method Nasal Cannula Room Air Room Air Oxygen Flow Rate 3 08/24/18 04:00 Temperature 36.8 C Temperature Source Oral Sepsis Recent Fever Within 48 Hours Sepsis New/Unexplained Change in Mental Status Sepsis Action Taken by Nursing Pulse Rate Pulse Rate [Apical] 89 Pulse Rhythm Pulse Rhythm [Apical] Regular Pulse Strength Pulse Strength [Apical] Normal Respiratory Rate 20 Respiratory Effort / Characteristics Non-Labored Respiratory Depth Normal Respiratory Pattern Regular Blood Pressure Blood Pressure [Right Arm] 138/78 Blood Pressure Mean Blood Pressure Mean [Right Arm] 98 Blood Pressure Position Blood Pressure Position [Right Arm] Lying Pulse Oximetry 91 Oxygen Delivery Method Room Air Oxygen Flow Rate GENERAL: Awake, alert, fatigued-appearing, in no distress HENT: Normocephalic, atraumatic. Oropharynx with dry mucous membranes and otherwise unremarkable. EYES: Normal conjunctiva. Sclera non-icteric. NECK: Supple. No nuchal rigidity. FROM. No JVD. RESPIRATORY: Clear to auscultation. CARDIAC: Tachycardic rate, normal rhythm. Extremities warm and well perfused. Pulses equal. ABDOMEN: Soft, non-distended. No rebound or guarding. No masses. Mild epigastric discomfort without discrete tenderness. RECTAL: Deferred. MUSCULOSKELETAL: Chest examination reveals no tenderness. The back is symmetrical on inspection without obvious abnormality. There is no CVA tenderness to palpation. No joint edema. LOWER EXTREMITIES: Calves are equal size bilaterally and non-tender. No discoloration. Scant bilateral lower edema. NEURO: Normal sensorium. No sensory or motor deficits noted. SKIN: No rash or jaundice noted. Course 2158: The patient was evaluated in room B10, and a complete history and physical examination were performed. 2149: I reviewed the patient's case with Dr. Angeles - [facility]. He will evaluate the patient for further management. Administered Medications Acetaminophen (Tylenol) 650 mg PO Q6H ALEXIS Stop: 09/23/18 03:59 Last Admin: 08/24/18 04:11 Dose: 650 mg Documented by: [id number] Gabapentin (Neurontin) 300 mg PO BID ALEXIS Stop: 09/23/18 01:24 Last Admin: 08/24/18 04:11 Dose: 300 mg Documented by: [id number] Ioversol (Optiray 320 125ml) 112 ml IV ONCE PRN PRN Reason: Interaction Checking Stop: 08/27/18 22:25 Last Admin: 08/23/18 22:26 Dose: 112 ml Documented by: [id number] Levothyroxine Sodium (Synthroid) 175 mcg PO DAILYBB ALEXIS Stop: 09/23/18 06:29 Last Admin: 08/24/18 04:11 Dose: 175 mcg Documented by: [id number] Discontinued Medications Al Hydrox/Mg Hydrox/Simethicone () 1 dose PO ONE ONE Stop: 08/23/18 22:00 Last Admin: 08/23/18 22:13 Dose: 1 dose Documented by: [id number] Enoxaparin Sodium (Lovenox) 111 mg SQ NOW STA Stop: 08/23/18 22:59 Last Admin: 08/24/18 00:29 Dose: 111 mg Documented by: [id number] Famotidine (Pepcid) 20 mg PO NOW ONE Stop: 08/23/18 22:00 Last Admin: 08/23/18 22:13 Dose: 20 mg Documented by: [id number] Acetaminophen (Ofirmev) 1,000 mg in 100 mls @ 400 mls/hr IV NOW STA Stop: 08/23/18 22:13 Last Infusion: 08/23/18 22:31 Dose: 0 mls/hr Documented by: [id number] Admin: 08/23/18 22:13 Dose: 400 mls/hr Documented by: [id number] Sodium Chloride (Nss 1000ml) 500 mls @ 999 mls/hr IV .Q31M ONE Stop: 08/23/18 22:29 Last Infusion: 08/23/18 22:52 Dose: 0 mls/hr Documented by: [id number] Admin: 08/23/18 22:13 Dose: 999 mls/hr Documented by: [id number] Medical Decision Making Differential Diagnosis Differential diagnosis: Etiologies such as infections, reactive airway disease, COPD, pneumonia, pleural effusion, pulmonary edema, ARDS, pneumothorax, CHF, cardiac ischemia, cardiac tamponade, dysrhythmia, anemia, pulmonary embolism, musculoskeletal, gastrointestinal process, as well as others were entertained. Medical Records Attestation: I reviewed the patient's medical records. Home Medications Current Medication List: was personally reviewed by me Laboratory Data Attestation: I reviewed the patient's lab results. Result diagrams: 08/24/18 01:52 08/24/18 01:52 Lab Results 08/23/18 08/23/18 08/23/18 Range/Units 20:16 20:16 20:16 WBC 7.07 (4.8-10.8) K/uL RBC 4.84 (4.7-6.1) M/uL Hgb 12.9 L (14.0-18.0) g/dL Hct 40.6 L (42-52) % MCV 83.9 (80-100) fL MCH 26.7 (25-34) pg MCHC 31.8 L (32-36) g/dL RDW Std Deviation 50.7 H (36.4-46.3) fL RDW Coeff of Bindu 16.6 H (11.5-14.5) % Plt Count 235 (130-400) K/uL MPV 9.7 (7.4-10.4) fL Immature Gran % (Auto) 0.3 % Neut % (Auto) 58.7 % Lymph % (Auto) 24.2 % [place] % (Auto) 15.4 % Eos % (Auto) 1.0 % Baso % (Auto) 0.4 % Immature Gran # (Auto) 0.02 (0.00-0.02) K/uL Neut # (Auto) 4.15 (1.4-6.5) K/uL Lymph # (Auto) 1.71 (1.2-3.4) K/uL [place] # (Auto) 1.09 H (0.11-0.59) K/uL Eos # (Auto) 0.07 (0-0.5) K/uL Baso # (Auto) 0.03 (0-0.2) K/uL PT (9.0-12.0) Seconds INR (0.9-1.1) APTT (21.0-31.0) Seconds PTT Ratio Sodium 140 (136-145) mmol/L Potassium 3.9 (3.5-5.1) mmol/L Chloride 106 (98-107) mmol/L Carbon Dioxide 27 (21-32) mmol/L Anion Gap 7.0 (3-11) BUN 18 (7-18) mg/dl Creatinine 0.97 (0.6-1.4) mg/dl Est Cr Clr Drug Dosing 79.9 ml/min Est GFR ( Amer) 90.7 Est GFR (Non-Af Amer) 78.2 BUN/Creatinine Ratio 19.0 (10-20) Glucose 115 H (70-99) mg/dl Calcium 8.9 (8.5-10.1) mg/dl Total Bilirubin 0.3 (0.2-1) mg/dl AST 20 (15-37) U/L ALT 31 (12-78) U/L Alkaline Phosphatase 58 (45-117) U/L Total Creatine Kinase 286 (39-308) U/L CK-MB (CK-2) 7.0 H (0.5-3.6) ng/ml CK/CKMB % Calc 2.4 (0-3.0) Troponin I < 0.015 (0-0.045) ng/ml Total Protein 7.7 (6.4-8.2) gm/dl Albumin 3.9 (3.4-5.0) gm/dl Globulin 3.8 (2.5-4.0) gm/dl Albumin/Globulin Ratio 1.0 (0.9-2) Lipase 108 (73-393) U/L Urine Color Yellow Urine Appearance Clear (Clear) Urine pH 7.5 (4.5-7.5) Ur Specific [place] 1.017 (1.000-1.030) Urine Protein Negative (Negative) Urine Glucose (UA) Negative (Negative) Urine Ketones Negative (Negative) Urine Blood Negative (Negative) Urine Nitrite Negative (Negative) Urine Bilirubin Negative (Negative) Urine Urobilinogen Negative (Negative) Ur Leukocyte Esterase Negative (Negative) Urine WBC (Auto) 0 (0-5) /hpf Urine RBC (Auto) 0-4 (0-4) /hpf U Hyaline Cast (Auto) 0 (0-5) /lpf U Epithel Cells (Auto) 5-10 H (0-5) /lpf Urine Bacteria (Auto) Negative (Negative) 08/23/18 08/24/18 08/24/18 Range/Units 20:16 01:52 01:52 WBC 8.74 (4.8-10.8) K/uL RBC 4.66 L (4.7-6.1) M/uL Hgb 12.0 L (14.0-18.0) g/dL Hct 38.1 L (42-52) % MCV 81.8 (80-100) fL MCH 25.8 (25-34) pg MCHC 31.5 L (32-36) g/dL RDW Std Deviation 49.4 H (36.4-46.3) fL RDW Coeff of Bindu 16.6 H (11.5-14.5) % Plt Count 241 (130-400) K/uL MPV 9.4 (7.4-10.4) fL Immature Gran % (Auto) 0.1 % Neut % (Auto) 66.5 % Lymph % (Auto) 21.4 % [place] % (Auto) 10.9 % Eos % (Auto) 0.8 % Baso % (Auto) 0.3 % Immature Gran # (Auto) 0.01 (0.00-0.02) K/uL Neut # (Auto) 5.81 (1.4-6.5) K/uL Lymph # (Auto) 1.87 (1.2-3.4) K/uL [place] # (Auto) 0.95 H (0.11-0.59) K/uL Eos # (Auto) 0.07 (0-0.5) K/uL Baso # (Auto) 0.03 (0-0.2) K/uL PT 10.7 (9.0-12.0) Seconds INR 1.0 (0.9-1.1) APTT 27.9 (21.0-31.0) Seconds PTT Ratio 1.0 Sodium 138 (136-145) mmol/L Potassium 3.8 (3.5-5.1) mmol/L Chloride 107 (98-107) mmol/L Carbon Dioxide 27 (21-32) mmol/L Anion Gap 4.0 (3-11) BUN 16 (7-18) mg/dl Creatinine 0.88 (0.6-1.4) mg/dl Est Cr Clr Drug Dosing 88.1 ml/min Est GFR ( Amer) 100.2 Est GFR (Non-Af Amer) 86.4 BUN/Creatinine Ratio 18.7 (10-20) Glucose 102 H (70-99) mg/dl Calcium 8.4 L (8.5-10.1) mg/dl Total Bilirubin (0.2-1) mg/dl AST (15-37) U/L ALT (12-78) U/L Alkaline Phosphatase (45-117) U/L Total Creatine Kinase (39-308) U/L CK-MB (CK-2) (0.5-3.6) ng/ml CK/CKMB % Calc (0-3.0) Troponin I 0.169 H* (0-0.045) ng/ml Total Protein (6.4-8.2) gm/dl Albumin (3.4-5.0) gm/dl Globulin (2.5-4.0) gm/dl Albumin/Globulin Ratio (0.9-2) Lipase (73-393) U/L Urine Color Urine Appearance (Clear) Urine pH (4.5-7.5) Ur Specific [place] (1.000-1.030) Urine Protein (Negative) Urine Glucose (UA) (Negative) Urine Ketones (Negative) Urine Blood (Negative) Urine Nitrite (Negative) Urine Bilirubin (Negative) Urine Urobilinogen (Negative) Ur Leukocyte Esterase (Negative) Urine WBC (Auto) (0-5) /hpf Urine RBC (Auto) (0-4) /hpf U Hyaline Cast (Auto) (0-5) /lpf U Epithel Cells (Auto) (0-5) /lpf Urine Bacteria (Auto) (Negative) Imaging Data Radiologist's Impression: Radiology results as stated below per my review and the radiologist's interpretation: XR chest 1V portable CLINICAL HISTORY: Chest Pain dyspnea COMPARISON STUDY: 01/24/2018 FINDINGS: Mild chronic bibasilar interstitial change. No acute infiltrate. Mild stable cardiomegaly. IMPRESSION: Mild cardiomegaly. Otherwise negative study. The above report was generated using voice recognition software. It may contain grammatical, syntax or spelling errors. Electronically signed by: Nik Mendoza M.D. 08/23/2018 8:[address] angio chest PE protocol CT DOSE: 556.39 mGy.cm HISTORY: Pain PE TECHNIQUE: Multiaxial CT images of the chest were performed following the intravenous administration of contrast to evaluate the pulmonary arteries. Maximal intensity projection images were also obtained. A dose lowering technique was utilized adhering to the principles of ALARA. COMPARISON STUDY: 06/11/2014 FINDINGS: The thoracic aorta is normal in course and caliber. There are filling defects within the right lower lobe pulmonary arterial vasculature as well as the left lower lobe pulmonary arterial vasculature. Less prominent findings are seen in the upper lobe regions bilaterally. There is no evidence for a saddle embolus. Heart is mildly enlarged. Lungs are grossly clear. IMPRESSION: 1. Extensive bilateral acute pulmonary emboli. 2. Lungs are grossly clear. The above report was generated using voice recognition software. It may contain grammatical, syntax or spelling errors. Electronically signed by: Nik Mendoza M.D. 08/23/2018 10:35 PM ECG Data Attestation: I personally reviewed and interpreted this ECG as follows: Indication: SOB/dyspnea Rate (beats per minute): 110 Rhythm: sinus tachycardia Findings: + other (nonspecific T wave abnormality), + nonspecific-ST abn and + PVC (occasional ); no acute ischemic change Blood Pressure Blood Pressure Findings: Elevated blood pressure Blood Pressure Disposition: further management by hospitalist FAUSTINO Narrative The patient is a pleasant 73-year-old gentleman with a past medical history of hypertension, COPD/asthma, still left lower extremity DVT recently completing 6 months of anticoagulation with Xarelto last month who presents emergency department with worsening dyspnea on exertion and chest pain per hpi. On arrival patient is fatigued appearing but no acute distress, afebrile, HR 100s and otherwise stable vital signs. EKG demonstrates sinus tachycardia with occasional PVCs and nonspecific ST and T wave abnormalities. Otherwise, no overt acute ischemia. Chest x-ray with cardiomegaly but otherwise no acute cardiopulmonary process. WBC within normal limits. H/H 12.9/40.6 without recent values for comparison though, decreased from January 2018 of 14.2/43.8. Platelets wnl. Chemistry without acidosis. Troponin negative. CTA of the chest demonstrates extensive bilateral pulmonary emboli. Patient ordered for Lovenox. Patient updated on findings, treatment pain, and admission. Patient an d agreeable. Case was discussed with Dr. Angeles, [facility] hospitalist, who will evaluate the patient for admission. Impression & Plan Bilateral pulmonary embolism Critical Care Time I have personally spent 35 minutes of critical care time in the direct management of this patient. This includes bedside care, interpretation of diagnostic studies, and testing, discussion with consultants, patient, and family members, and other required patient management activities. This 35 minutes is in excess of all separately billable procedures. Critical Care Time: Yes Total Critical Care Time: 35 Discharge Plan Visit Data *Final* Discharge Date/Time: 08/24/18 00:33 Chief Complaint: Chest Pain Stated Complaint: CHEST PAIN, SOB ED Provider: Grzegorz Villaseñor Discharge Problem: Bilateral pulmonary embolism Patient Disposition: Admitted As Inpatient Discharge Instructions Interventions: ED Discharge Assessment Last Done: 08/24/18 00:33 The scribe's documentation has been prepared under my direction and personally reviewed by me in its entirety. I confirm that the note above accurately reflect s all work, treatment, procedures, and medical decision making performed by me.
[2018-08-24 02:36] LABS: BUN Creatinine Ratio 18.7 (10-20); Calcium 8.4 mg/dl (8.5-10.1); Creatinine Clr Calc Pharmacy 88.1 ml/min; Est GFR (African American) 100.2; Est GFR (Non-African American) 86.4; Potassium 3.8 mmol/L (3.5-5.1)
[2018-08-24 02:48] LABS: Troponin I 0.169 ng/ml (0-0.045)
[2018-08-24] MEDS: ACETAMINOPHEN 325 MG TAB PO SCH ×4 (04:11→22:58)
[2018-08-24] MEDS: LEVOTHYROXINE SODIUM 175 MCG TABLET PO SCH (04:11)
[2018-08-24] MEDS: GABAPENTIN 300 MG CAP PO SCH ×3 (04:11→20:10)
--- NOTE | 2018-08-24 07:15 | Ultrasound Report ---
BILATERAL LOWER EXTREMITY VENOUS DOPPLER HISTORY: Pulmonary embolus. Assess for DVT. COMPARISON STUDY: Left lower extremity venous Doppler study 05/29/2018. FINDINGS: There is occlusive thrombus seen within the right popliteal vein. Nonocclusive thrombus see n within the right peroneal veins and left posterior tibial veins. The left posterior tibial vein thr ombosis is likely chronic. There are bilateral popliteal cysts. IMPRESSION: 1. Occlusive thrombus within the right popliteal vein which may be acute. 2. Nonocclusive thrombus seen within the right peroneal veins and left posterior tibial veins. 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 Electronically signed by: Ja Mead M.D. 08/24/2018 7:14 AM
[2018-08-24] MEDS: EZETIMIBE 10 MG TABLET PO SCH (08:14)
[2018-08-24] MEDS: PANTOprazole 40 MG TAB PO SCH (08:14)
[2018-08-24] MEDS: FLUTICASONE/SALMETEROL 250/50 (ADVAIR) 14 PUFF/1 INHALER INH SCH ×2 (08:14→20:10)
[2018-08-24] MEDS: TRAMADOL HCL 50 MG TABLET PO SCH ×4 (08:16→20:10)
[2018-08-24] MEDS ORDERED: Nursing to Pharmacy Communication ONE (08:17)
[2018-08-24] MEDS ORDERED: AMLODIPINE BESYLATE 5 MG TAB PO SCH ×2 (09:00→17:00)
--- NOTE | 2018-08-24 10:49 | Cardiology Consultation ---
Date of Consultation August 24, 2018 Assessment & Plan (1) Bilateral pulmonary embolism: He had a left DVT last summer, now presents with bilateral PE and evidence of thrombus in his right leg although not in the deep vein system as near as I can tell by the report. This is worrisome in view of no precipitating factors in either case and he has been very active up until this happened. I would be concerned about a hypercoagulable state. In any case however he should be treated with anticoagulation, since this does not represent a failure of the newer agents but no recurrence after discontinuation I would use Eliquis or Xarelto, I prefer Eliquis but he has been on Xarelto before. It probably should be continued indefinitely, but I think an evaluation with his voltage inspector (which he is seen recently) would be in order. (2) Chest pain: He has a long history of chest pain. He has several reasons for having chest discomfort including some type of difficulty with his joints (although he has never been evaluated for Ehrlos Danlos) resulting in discomfort and tendon tears in his large joints as well as what he describes as GERD. He does not feel that the symptoms have changed lately, however it is worrisome that he had these symptoms on presentation and had slight enzyme rise. At some point I think we need to evaluate him for coronary artery disease despite a negative stress test 3 years ago. I do not think we should do that right now, I would probably wait at least a month or so before doing a stress test and I do not think a catheterization is indicated. (3) Hypertension: He has long-standing hypertension and his blood pressure in the emergency room was quite elevated. His blood pressure is better now. At home he is on low-dose amlodipine and lisinopril 20 mg daily. I would strongly consider adding a beta-mary ellen to his regimen, even if it means decreasing his lisinopril somewhat. (4) Elevated troponin: He had an elevated troponin shortly after admission, it was not elevated at all when he arrived in the emergency room and then peaked at 0.169 on his second set with the third being slightly lower. It is not too surprising that he had an elevated troponin however the timing is a little bit suspicious. His symptoms were quite severe for several days prior to admission, they did get worse the day he came in troponins typically come up fairly quickly and his did not come up until after he was admitted. He was quite hypertensive and quite tachycardic on his initial evaluation and for several hours thereafter and this may be adequate explanation for it. His electrocardiogram however suggests inferolateral ST depression consistent with possible ischemia. His second electrocardiogram looks improved. He is not having an acute cardiac event, but I am concerned that he may have underlying coronary artery disease which was uncovered by the stress of his presentation. I do not think we should perform catheterization now, however I think we will need to do stress testing in the future and I would not be surprised if he has coronary artery disease. He should be treated for it, he is on Zetia although a statin would be a better option and a beta-mary ellen would probably be reasonable to add. I have not made these medication changes. History of Present Illness Reason for Consultation: Abnormal cardiac enzymes, chest discomfort Attending Physician: Syed Garcia MD History of Present Illness This is a very pleasant 73-year-old gentleman who has risk factors for coronary artery disease including hypercholesterolemia and hypertension but has never had documented heart disease. He does have chest discomfort which is chronic and may be associated with GERD or chest wall discomfort and has had a dobutamine stress test (he has trouble with his knees and cannot walk on a treadmill) 3 years ago which was negative for ischemia at 98% of his predicted maximal heart rate. He is very active, he chops wood, shovels coal, takes care of property including trees and mowing as well as working in his shop and has never had clear anginal symptoms. Over the summer 2017 he developed left leg swelling, a DVT was diagnosed without associated PE. He was placed on Xarelto, reevaluation in July of this year included a left leg ultrasound which showed 6 no acute findings although it sounds from his description as though there was residual laminated thrombus and the recommendation was to stop Xarelto. He then presented with exertional shortness of breath over the last 4 days, it got significantly worse yesterday and he came to the emergency room. He had no associated leg swelling. He did have exertional chest discomfort which he attributed to his long-standing chest discomfort. In the emergency room he was found to have bilateral pulmonary emboli as well as right leg venous thrombosis, not the left which was the site of his prior thrombosis. Of note his cardiac enzymes were slightly elevated after admission, but not in the emergency room. His electrocardiogram was also slightly abnormal but not with an acute injury pattern. At the time of my evaluation today he is feeling well, he is having no further shortness of breath and is not having chest discomfort. He has however been inactive. Allergies Allergy/AdvReac Type Severity Reaction Status Date / Time Sulfa (Sulfonamide Allergy Severe Anaphylaxis Verified 08/23/18 23:38 Antibiotics) A CHILD trimethoprim Allergy Severe Anaphylaxis- Verified 08/23/18 23:38 A CHILD adhesive Allergy Intermediate TAPE-SKIN Verified 08/23/18 23:38 IRRITATION clonidine Allergy Intermediate EDEMA/HIVES Verified 08/23/18 23:38 meperidine Allergy Intermediate SWELLING Verified 08/23/18 23:38 ondansetron Allergy Intermediate swelling Verified 08/23/18 23:38 codeine Allergy Mild RASH Verified 08/23/18 23:38 zoster vaccine live Allergy Unknown TAKES Verified 08/23/18 23:38 STERIOD INJECTIONS Home Medications Home Medications Medication Instructions Recorded Confirmed Type acetaminophen 650 mg PO Q6H 01/24/18 08/23/18 History amlodipine 5 mg PO DAILY 01/24/18 08/23/18 History cyanocobalamin (vitamin B-12) 1,000 mcg PO DAILY 01/24/18 08/23/18 History [Vitamin B-12] ezetimibe [Zetia] 10 mg PO DAILY 01/24/18 08/23/18 History fluticasone propion-salmeterol 1 puff INHALATION BID 01/24/18 08/23/18 History [Advair Diskus] gabapentin 300 mg PO BID 01/24/18 08/23/18 History levothyroxine [Synthroid] 175 mcg PO DAILY 01/24/18 08/23/18 History lisinopril 20 mg PO HS 01/24/18 08/23/18 History ssrsqigy-ori-feksb-vit K-lycop 1 tab PO DAILY 01/24/18 08/23/18 History [Men's Multivitamin] pantoprazole 40 mg PO DAILY 01/24/18 08/23/18 History tramadol 50 mg PO QID 01/24/18 08/23/18 History diclofenac sodium 2 g TOPICAL QID PRN 08/23/18 08/23/18 History ipratropium bromide [Atrovent HFA] 1 puff INHALATION Q6H PRN 08/23/18 08/23/18 History Patient History Medical History Chronic lower back pain (Chronic) Cervicalgia (Chronic) Chronic reflux esophagitis (Chronic) Hypertension (Chronic) Hypothyroidism (Chronic) Dysmetabolic syndrome X (Chronic) Diabetes (Chronic) Deep vein thrombosis (Acute) Family History Other Family history non-contributory Social History Preferred Language: Kinyarwanda Communication Ability: Effective Research Affiliate Required: No Beliefs That Will Affect Care: None Current Living Situation: Spouse Other Information That Helps Us Care for You: No Feels Safe at Home: Yes Safety Concerns: Feels Safe At This Time Smoking Status: Former smoker Tobacco Type: cigarettes Hx Alcohol Use: No Hx Substance Use: No Review of Systems Review of Systems: All systems reviewed & are unremarkable except as noted in HPI & below Physical Exam Physical Exam: Constitutional: Alert, cooperative and in no distress. HEENT: Unremarkable Neck: No jugular venous distention, carotid pulses are normal and equal bilaterally without bruits. Pulmonary: Clear to auscultation bilaterally. Cardiac: Regular rhythm with no murmur, gallop or rub. Abdomen: Soft, nontender with normal bowel sounds. Extremities: No edema. Distal pulses intact. Neurologic: No focal findings. Gait is steady. Skin: No rash, ecchymoses or petechiae. Results & Data Vital Signs (Past 12 Hours) Vital Signs Temp Pulse Pulse Pulse Resp BP Pulse Ox 08/24/18 07:39 89 08/24/18 07:17 36.9 C 62 16 130/78 98 08/24/18 04:00 36.8 C 89 20 138/78 91 08/24/18 01:40 36.9 C 100 H 20 144/83 H 92 08/24/18 00:11 99 H 18 159/93 H 93 Diagnostic Findings Electrocardiogram done on arrival in the emergency room shows sinus tachycardia at 110 bpm with inferolateral T wave abnormalities including lateral ST depression. Frequent premature ventricular beats. Another electrocardiogram done at the time of my evaluation this morning shows sinus rhythm with nonspecific inferolateral ST-T abnormalities, somewhat improved from the initial. An echocardiogram was done this morning, I reviewed it but it has not been formally read as yet. Left ventricular function appears to be normal, there seems to be evidence of right sided pressure. Telemetry: Sinus rhythm and sinus tachycardia, PVCs overload.
[2018-08-24] MEDS ORDERED: ENOXAPARIN INJ 120 MG/0.8 ML SYR SC SCH (14:00)
[2018-08-24] MEDS: ENOXAPARIN INJ 120 MG/0.8 ML SYR SC SCH ×2 (14:09→22:59)
[2018-08-24] MEDS ORDERED: LOVENOX TEACHING KIT PRN (18:59)
--- NOTE | 2018-08-24 19:07 | Hospitalist Progress Note ---
Date of Service August 24, 2018 Assessment & Plan (1) Bilateral pulmonary embolism: He had a left DVT last summer, now presents with bilateral PE and evidence of thrombus in his right leg although not in the deep vein system as near as I can tell by the report. Personally spoke with Dr. Barrios , oncology he states that there is no defined evidence of recurrent DVT PE that is unprovoked is definitely associated with malignancy to the point where we would need to have a blind pain scan. However the patient does have focal complaints or problems he could focus on those. He did have a colonoscopy in 2013 without any evidence of polyps. He was given a 10-year repeat colonoscopy recommendation. Patient is on Lovenox at this point time he will have some home teaching however considering re-engaging his Xarelto could be undertaken. Dr. Barrios did recommend a antiphospholipid panel be sent (2) Chest pain: He has a long history of chest pain. a negative stress test 3 years ago. Chest pain is reproducible and pleuritic. He was seen by cardiology who feels he may do a stress test in the future once his pulmonary embolism has some time to stabilize perhaps in [address] Boone did see the patient additionally an echo was performed without any right ventricular strain (3) Hypertension: He has long-standing hypertension and his blood pressure, amlodipine and lisinopril 20 mg daily. (4) Elevated troponin: He had an elevated troponin shortly after admission, it was not elevated at all when he arrived in the emergency room and then peaked at 0.169 on his second set with the third being slightly lower. This is felt to be likely myocardial demand ischemia and not an an STEMI Subjective Patient has some still some residual chest pain is no leg pain. Family is at present the bedside and all questions were answered Review of Systems Review of Systems: ROS: well nourished well developed. No double vision blurry vision No problems with speech or swallowing No palpitations, has some substernal chest pain pleuritic in nature No Wheezing dyspnea on exertion No abdominal pain nausea vomiting diarrhea changes in appetite or weight No burning urine urine frequency or changes in color No focal joint pain or muscle pain trace bilateral lower leg swelling complaints No skin rashes or oral lesions No unusual bruising or bleeding No focused back pain or numbness or loss of strength No changes in memory or confusion Physical Exam Physical Exam: The patient appeared in mild to moderate discomfort Vital signs as documented. He is not hypoxic Head exam is unremarkable. normocephalic, atraumatic Neck is without jugular venous distension, thyromegaly, or lymphademopathy Lungs are clear to auscultation and percussion. No rub is heard Cardiac exam reveals Rhythm is regular. As well as reproducibly tender Abdominal exam reveals normal bowel sounds, no masses, no organomegaly Extremities are mildly edematous and both pedal pulses are present Neurologic exam is A&Ox3, no focal deficits, strength is equal bilateral Psychologically seems neither anxious or depressed Skin is warm Dry without bruises or lesions Results & Data Vital Signs (Past 12 Hours) Vital Signs Temp Pulse Pulse Pulse Resp BP Pulse Ox 08/24/18 16:00 37.1 C 90 18 133/85 94 08/24/18 11:28 37.2 C 88 16 163/82 H 92 08/24/18 07:39 89 08/24/18 07:17 36.9 C 62 16 130/78 98
[2018-08-24] MEDS ORDERED: LISINOPRIL 20 MG TAB PO SCH (21:00)
[2018-08-25] MEDS: ACETAMINOPHEN 325 MG TAB PO SCH ×2 (03:56→09:24)
[2018-08-25] MEDS: LEVOTHYROXINE SODIUM 175 MCG TABLET PO SCH (06:16)
[2018-08-25] MEDS: FLUTICASONE/SALMETEROL 250/50 (ADVAIR) 14 PUFF/1 INHALER INH SCH (08:18)
[2018-08-25] MEDS: GABAPENTIN 300 MG CAP PO SCH (08:18)
[2018-08-25] MEDS: PANTOprazole 40 MG TAB PO SCH (08:18)
[2018-08-25] MEDS: EZETIMIBE 10 MG TABLET PO SCH (08:18)
[2018-08-25] MEDS: TRAMADOL HCL 50 MG TABLET PO SCH (08:21)
[2018-08-25] MEDS: ENOXAPARIN INJ 120 MG/0.8 ML SYR SC SCH (09:23)
--- NOTE | 2018-08-25 10:21 | Cardiology Progress Note ---
Date of Service August 25, 2018 Assessment & Plan (1) Bilateral pulmonary embolism: He had a left DVT last summer, now presents with bilateral PE and evidence of thrombus in his right leg although not in the deep vein system as near as I can tell by the report (perhaps that embolized). This is worrisome in view of no precipitating factors in either case and he has been very active up until this happened. I would be concerned about a hypercoagulable state. In any case however he should be treated with anticoagulation, since this does not represent a failure of the newer agents but a new recurrence after discontinuation I would use Eliquis or Xarelto, I prefer Eliquis but he has been on Xarelto before. It probably should be continued indefinitely, but I agree an evaluation by his hop strainer would be in order. (2) Chest pain: He has a long history of chest pain. He has several reasons for having chest discomfort including some type of difficulty with his joints (although he has never been evaluated for Ehrlos Danlos) resulting in discomfort and tendon tears in his large joints as well as what he describes as GERD. He does not feel that the symptoms have changed lately, however it is worrisome that he had these symptoms on presentation and had slight enzyme rise. At some point I think we need to evaluate him for coronary artery disease despite a negative stress test 3 years ago. I do not think we should do that right now, I would probably wait at least a month or so before doing a stress test and I do not think a catheterization is indicated. (3) Hypertension: He has long-standing hypertension and his blood pressure in the emergency room was quite elevated. His blood pressure is better now. At home he is on low-dose amlodipine and lisinopril 20 mg daily. I would strongly consider adding a beta-mary ellen to his regimen, even if it means decreasing his lisinopril somewhat. (4) Elevated troponin: He had an elevated troponin shortly after admission, it was not elevated at all when he arrived in the emergency room and then peaked at 0.169 on his second set with the third being slightly lower. It is not too surprising that carolyn carrizales had an elevated troponin however the timing is a little bit suspicious. His symptoms were quite severe for several days prior to admission, they did get worse the day he came in but troponins typically come up fairly quickly and his did not come up until after he was admitted. He was quite hypertensive and quite tachycardic on his initial evaluation and for several hours thereafter and this may be adequate explanation for it. His electrocardiogram however suggests inferolateral ST depression consistent with possible ischemia. His second electrocardiogram looks improved. He is not having an acute cardiac event, but I am concerned that he may have underlying coronary artery disease which was uncovered by the stress of his presentation. I do not think we should perform catheterization now, however I think we will need to do stress testing in the future and I would not be surprised if he has coronary artery disease. He should be treated for it, he is on Zetia although a statin would be a better option and a beta-mary ellen would probably be reasonable to add. I have not made these medication changes. He is planning on a trip out to [place] to an altitude of about 7000 feet on September 06, 2018 and will stay there for about 5 days. That is perhaps a little concerning given his recent PE, I am not sure what the recommendations are for air travel or for staying at that altitude about 3 weeks after a large PE. With his possibility of coronary artery disease we do have to worry a little bit about myocardial ischemia if he would become hypoxic. Subjective Patient feels well today, he is not having shortness of breath and not having chest discomfort. He may have a little bit of right calf discomfort but not much. Physical Exam Physical Exam: Constitutional: Alert, cooperative and in no distress. Pulmonary: Clear to auscultation bilaterally. Cardiac: Regular rhythm with no murmur, gallop or rub. Abdomen: Soft, nontender with normal bowel sounds. Extremities: No edema. Skin: No rash, ecchymoses or petechiae. Results & Data Vital Signs (Past 12 Hours) Vital Signs Temp Pulse Pulse Resp BP Pulse Ox 08/25/18 08:00 90 08/25/18 07:18 36.7 C 86 20 117/75 93 08/25/18 03:44 36.8 C 86 18 122/84 93 08/25/18 01:46 94 H 08/24/18 23:00 37.3 C 89 18 144/75 H 92
--- NOTE | 2018-08-25 18:45 | Discharge Summary ---
Date of Service August 25, 2018 Admission HPI Per Admitting Provider 73-year-old male with a past medical history of COPD, hypertension, hyperlipidemia and recent DVT (December 2017), who completed Xarelto treatment at the beginning of July presents to the hospital with shortness of breath and chest pain. He states that he started to feel short of breath since Tuesday and the symptoms have progressively gotten worse. He states that it is worse when he goes upstairs. Patient denies having any hemoptysis or calf tenderness. He describes having some chest painsharp pain when he takes a deep breath or leans forward. He says that he is recovering from a recent bout of diverticuli tis and has been less active recently. Patient denied being bedridden. He denies any recent surgeries, long car rides or malignancy. Patient was diagnosed with a left lower extremity DVT in December and was treated for 6 months with Xarelto. He was seeing Dr. Barrios at that time. Constitutional; no fevers, chills, night sweats Abdomen; no abdominal pain, no nausea/vomiting/diarrhea Principal Diagnosis Bilateral pulmonary embolism and DVT Discharge Exam Constitutional well developed and average body habitus Eyes no conjunctival abnormality and no scleral abnormality Neck normal visual inspection and trachea midline Respiratory normal respiratory effort; no respiratory distress Auscultation: lungs clear to auscultation bilaterally Cardiovascular Rate/Rhythm: regular rate and regular rhythm Gastrointestinal (Abdomen) normal bowel sounds, soft, nontender, no hepatosplenomegaly Discharge Data Allergies Allergy/AdvReac Type Severity Reaction Status Date / Time Sulfa (Sulfonamide Allergy Severe Anaphylaxis Verified 08/23/18 23:38 Antibiotics) A CHILD trimethoprim Allergy Severe Anaphylaxis- Verified 08/23/18 23:38 A CHILD adhesive Allergy Intermediate TAPE-SKIN Verified 08/23/18 23:38 IRRITATION clonidine Allergy Intermediate EDEMA/HIVES Verified 08/23/18 23:38 meperidine Allergy Intermediate SWELLING Verified 08/23/18 23:38 ondansetron Allergy Intermediate swelling Verified 08/23/18 23:38 codeine Allergy Mild RASH Verified 08/23/18 23:38 zoster vaccine live Allergy Unknown TAKES Verified 08/23/18 23:38 STERIOD INJECTIONS Consultations 08/23/18 22:46 ED Decision to Admit Stat 08/24/18 00:11 Consult Case Management - Discharge Planning Routine 08/24/18 03:09 Consult Cardiology Routine Ordered Studies 08/23/18 21:59 CT angio chest PE protocol Stat 08/23/18 23:04 US venous doppler [facility] Urgent Hospital Course (1) Bilateral pulmonary embolism: He had a left DVT last summer, now presents with bilateral PE and evidence of thrombus in his right leg although not in the deep vein system as near as I can tell by the report. Personally spoke with Dr. Barrios , oncology he states that there is no defined evidence of recurrent DVT PE that is unprovoked is definitely associated with malignancy to the point where we would need to have a blind pain scan. However the patient does have focal complaints or problems he could focus on those. He did have a colonoscopy in 2013 without any evidence of polyps. He was given a 10-year repeat colonoscopy recommendation. Patient will be transition to Xarelto as he has tolerated this in the past Dr. Barrios did recommend a antiphospholipid panel be sent we will follow-up with the patient in his office (2) Chest pain: He has a long history of chest pain. a negative stress test 3 years ago. Chest pain is reproducible and pleuritic. He was seen by cardiology who feels he may do a stress test in the future once his pulmonary embolism has some time to stabilize perhaps in [address] Boone did see the patient additionally an echo was performed without any right ventricular strain he recommended instituting beta-mary ellen which we will do by holding his amlodipine and starting metoprolol succinate. There is discussion about changing his Zetia to a more formal high potency statin however given the fact that his troponin may be more demand ischemia we will let his primary care physician make that decision (3) Hypertension: He has long-standing hypertension and his blood pressure, metoprolol XL and lisinopril 20 mg daily. (4) Elevated troponin: He had an elevated troponin shortly after admission, it was not elevated at all when he arrived in the emergency room and then peaked at 0.169 on his second set with the third being slightly lower. This is felt to be likely myocardial demand ischemia and not an an STEMI Total Time Total Time Spent Total Time Spent (In Minutes): greater than 30 minutes were required to prepare discharge Discharge Plan Discharge Items Patient Disposition: Home - Self-Care Reason For Visit: BILATERAL PE, HYPOXIA Discharge Diagnosis: pulmonary embolism Discharge Goals: Decrease discomfort, Diagnostic testing and Improve disease control Activity: Resume your previous activity Non-emergency contact: Primary Care Provider Call non-emergency contact if: you have any medication questions Follow-up/Referrals: Bony Zurita MD [Primary Care Provider] - 08/29/18 10:30 am (Please, follow up at [facility] Office with Dr. Zruita on TuesdayAugust 29 at 10:30 am. *If you need to change this appointment, call the office at [phone].) Codey Barrios [Physician] - 08/30/18 12:50 pm (Please, follow up at Dr. Barrios's office with his associate, Rosalinda PIÑA, on TuesdayAugust 30 at 12:50 pm. *If you need to change this appointment, call their office at [phone].) Diet: Regular Addtl Provider Instructions: start xarelto tonight Cardiology, has recommended some medications changes. Also to discuss with your primary care doctor to discuss other options for colesterol treatment Prescriptions: New Xarelto 15 mg tablet 15 mg PO BID 21 Days Qty: 42 RF: 0 Xarelto 20 mg tablet 20 mg PO DAILY Qty: 30 RF: 5 metoprolol succinate 25 mg tablet extended release 24 hr 25 mg PO DAILY Qty: 30 RF: 0 Continued Atrovent HFA 17 mcg/actuation Hfa Aerosol Inhaler 1 puff INHALATION Q6H PRN (Reason: Shortness Of Breath Or Wheezing) RF: 0 diclofenac sodium 1 % Gel 2 g TOPICAL QID PRN (Reason: Pain) RF: 0 levothyroxine 175 mcg tablet 175 mcg PO DAILY RF: 0 fluticasone propion-salmeterol 250-50 mcg/dose blister with device 1 puff Inhalation BID RF: 0 acetaminophen 325 mg Tablet 650 mg PO Q6H RF: 0 lisinopril 20 mg tablet 20 mg PO HS RF: 0 cyanocobalamin (vitamin B-12) [Vitamin B-12] 1,000 mcg Tablet 1,000 mcg PO DAILY RF: 0 tramadol 50 mg tablet 50 mg PO QID RF: 0 pantoprazole 40 mg tablet,delayed release (DR/EC) 40 mg PO DAILY RF: 0 gabapentin 300 mg capsule 300 mg PO BID RF: 0 ezetimibe 10 mg tablet 10 mg PO DAILY RF: 0 Men's Multivitamin 400-20-300 mcg Tablet 1 tab PO DAILY RF: 0 Discontinued amlodipine 5 mg tablet 5 mg PO DAILY RF: 0 Stand-Alone Forms: Call Back Authorization, [facility] Discharge Orders: Discharge Order (Routine); Ordered 08/25/18 Ordered By: Syed Garcia Admission Data Admit Date/Time: 08/24/18 00:10 Attending Provider: Syed Garcia Admit Provider: Gonzalo Lundy Primary Care Provider: Bony Zurita Other Providers: Ja Angeles ; Paco Boone ; Rubin Angeles Service: Telemetry Medical Other Interventions: Discharge Summary Assessment (RN) Last Done: 08/25/18 11:06 DC Date/Time DO NOT enter until pt leaves facility: 08/25/18 11:33
[2018-08-25] MEDS ORDERED: ENOXAPARIN INJ 120 MG/0.8 ML SYR SC SCH (22:00)
--- NOTE | 2018-08-28 12:30 | Coding Query ---
CODING QUERY To promote full compliance with coding requirements relating to patient care, provider participation is requested in all cases of experimental mechanic spacecraft uncertainty. Please assist us with the question(s) below: Coding Question(s): 1. The Discharge Summary documents Principal Diagnosis of Bilateral Pulmonary Embolism and DVT. There is a documented history of left leg DVT and there is documentation of, "evidence of thrombus in his right leg although not deep in the deep vein system as near as I can tell by the report." The Venous Doppler shows, under impression: 1. Occlusive thrombus within the right popliteal vein which may be acute. 2. Nonocclusive thrombus seen within the right peroneal veins and left posterior tibial veins. The left posterior tibial vein thrombosis is likely chronic. Please clarify below, in your clinical opinion, regarding the DVT. ( xxx ) Acute DVT of the Right leg ( ) Chronic DVT of the Right leg ( ) Acute DVT of the Left leg ( ) Chronic DVT of the Left leg ( ) Other, Please specify 2. Please specify below, regarding the DVT, to determine if it was present on admission or not. ( xxx) Present on Admission ( ) Not Present on Admission ( ) Unknown if present on admission Physician's Response(s): Thank you Bonnie Simpson Principal Diagnosis: "that condition established after study, to be chiefly responsible for occasioning the admission of the patient to the hospital for care." Co-Existing Principal Diagnosis: "when two or more diagnoses equally meet the criteria for principal diagnosis as determined by the circumstances of admission, diagnostic work up, and/or therapy provided, and the Alphabetic Index, Tabular List, or another coding guideline does not provide sequencing direction, any one of the diagnoses may be sequenced first." "When the physician has documented what appears to be a current diagnosis in the body of the record, but has not included the diagnosis in the final diagnostic statement, the physician should be asked whether the diagnosis should be added." (Source Coding [facility] 2 QTR90. p3-4) HENRY
[2018-09-05 14:40] LABS: B2 Glycoprotein IgA <9 SAU (<=20); B2 Glycoprotein IgG <9 SGU (<=20); B2 Glycoprotein IgM <9 SMU (<=20); Phosphatidylserine IgG <10 U/mL (<10); Phosphatidylserine IgM <25 U/mL (<25)
== END 2018-08-25 11:33 | disposition home or self-care (01) | DRG 299 ==
LOC: ED 20:01 → 2N 08-24 00:10 → SUATTDRO 08-24 00:10 → 2N 08-24 00:33

== ENCOUNTER 2019-03-22 10:44 | Observation (INO) ==
--- NOTE | 2019-02-26 13:50 | Anesthesiology Consultation ---
Date of Service February 26, 2019 Assessment & Plan (1) Encounter for pre-operative examination: Chart Review Chart Review: Pending: Refer to Additional Notes / Consult section (awaiting note from Yudith) and Patient NOT seen in Pre Admission Testing History Surgery Operation Date: 03/01/19 14:20 Proposed Procedures p Right Shoulder Arthrocsopy Revision Rotator Cuff Repair, Bicep Tenodesis, Possible Subacromial Decompression - Ismael Uriarte MD Height/Weight Height: 5 ft 6 in Weight: 104.326 kg Allergies Allergy/AdvReac Type Severity Reaction Status Date / Time Sulfa (Sulfonamide Allergy Severe Anaphylaxis Verified 02/15/19 13:26 Antibiotics) A CHILD trimethoprim Allergy Severe Anaphylaxis- Verified 02/15/19 13:26 A CHILD adhesive Allergy Intermediate TAPE-SKIN Verified 02/15/19 13:26 IRRITATION clonidine Allergy Intermediate EDEMA/HIVES Verified 02/15/19 13:26 meperidine Allergy Intermediate SWELLING Verified 02/15/19 13:26 ondansetron Allergy Intermediate swelling Verified 02/15/19 13:26 codeine Allergy Mild RASH Verified 02/15/19 13:26 zoster vaccine live Allergy Unknown TAKES Verified 02/15/19 13:26 STERIOD INJECTIONS Medications Home Medications Medication Instructions Recorded Confirmed Last Taken gabapentin 300 mg capsule 300 mg PO BID #60 cap 11/11/18 02/15/19 Unknown ipratropium bromide 17 1 puff INHALATION Q6H PRN #12.9 gm 11/11/18 02/15/19 Unknown mcg/actuation HFA aerosol inhaler naloxone 4 mg/actuation nasal spray 1 sprays INTNAS ONCE PRN #2 ea 11/11/18 02/15/19 Unknown fluticasone 250 mcg-salmeterol 50 See Rx Instructions .ROUTE 01/10/19 02/15/19 Unknown mcg/dose blistr powdr for .COMPLEX #60 unspecified inhalation tramadol 50 mg tablet 50 mg PO QID #120 tab 01/25/19 02/15/19 Unknown acetaminophen [Tylenol Arthritis 650 mg PO QID 02/15/19 02/15/19 Unknown Pain] cyanocobalamin (vitamin B-12) 1,000 mcg PO DAILY 02/15/19 02/15/19 Unknown [Vitamin B-12] ezetimibe 10 mg PO QDL 02/15/19 02/15/19 Unknown levothyroxine 175 mcg PO QAM 02/15/19 02/15/19 Unknown lisinopril 20 mg PO QPM 02/15/19 02/15/19 Unknown metoprolol succinate 25 mg PO QPM 02/15/19 02/15/19 Unknown multivitamin 1 tab PO QAM 02/15/19 02/15/19 Unknown pantoprazole 40 mg PO QAM 02/15/19 02/15/19 Unknown rivaroxaban [Xarelto] 20 mg PO QAM 02/15/19 02/15/19 Unknown Past Medical History Medical History Hyperlipidemia (Chronic) Hypertension (Chronic) Hypothyroidism (Chronic) Dysmetabolic syndrome X (Chronic) Asthma rarely uses PRN inh BPH (benign prostatic hyperplasia) Bilateral pulmonary embolism dx 08/2018. on xarelto. unk etiology Chronic back pain Degenerative disc disease GERD (gastroesophageal reflux disease) History of DVT (deep vein thrombosis) 12/2017 LLE - treated w/ AC x 6 months (unk etiology) 08/2017 RLE after stopping xarelto History of benign thyroid tumor History of squamous cell carcinoma Osteoarthritis Prediabetes Spinal stenosis Past Family History Family History Brother Family history of diabetes mellitus Sister Family history of diabetes mellitus Past Surgical History Surgical History History of arthroscopy of left knee History of arthroscopy of right knee History of colonoscopy History of esophagogastroduodenoscopy (EGD) History of fusion of cervical spine restricted ROM from side to side History of hand surgery Lt History of hernia repair left abdominal History of shoulder surgery BL History of squamous cell carcinoma excision History of surgery Lt biceps tendon repair History of total thyroidectomy Nausea and vomiting after administration of anesthetic agent Social History Smoking Status: Former smoker tobacco type: cigarettes Smoking cigarettes per day: quit 50 years ago Do You Dip or Chew Tobacco: No Hx Alcohol Use: No Hx Substance Use: No substance use type: does not use Testing Laboratory Results Laboratory Tests 02/23/19 02/23/19 02/23/19 07:35 07:35 07:35 WBC 4.99 Hgb 11.7 L Plt Count 349 PT 11.0 INR 1.1 Sodium 138 Potassium 4.0 Chloride 106 Carbon Dioxide 28 BUN 18 Creatinine 0.89 Glucose 86 Electrocardiogram Date: 08/24/18 Sinus tachycardia with Premature supraventricular complexes, rate [address] abnormality Abnormal QRS-T angle, consider primary T wave abnormality Abnormal ECG When compared with ECG of 23-AUG-2018 20:06, (unconfirmed) Premature ventricular complexes are no longer Present Premature supraventricular complexes are now Present Confirmed by MIGUEL SMITH ([id number]) on 08/24/2018 4:25:31 PM Chest X-Ray Date: 08/23/18 IMPRESSION: Mild cardiomegaly. Otherwise negative study. Stress Test Date: 02/21/19 Type: DSE Resting EF: 60-65% Negative dobutamine stress echo for ischemia at 92% MPHR. Abnormal dobutamine ECG for ischemia at 92% MPHR.
--- NOTE | 2019-03-21 22:57 | History and Physical Report ---
DATE OF ADMISSION: 03/22/2019 CHIEF COMPLAINT: Chronic right shoulder pain. HISTORY OF PRESENT ILLNESS: This is a 73-year-old male patient of Dr. Uriarte'trinity complaining of chronic right shoulder pain since a fall in January of 2019. He failed conservative treatment. He did have a shoulder arthroscopic rotator cuff repair back in 2003. Recent MRI revealed a large rotator cuff repair and biceps dislocation. The patient wished to proceed with a right shoulder arthroscopic revision rotator cuff repair, biceps tenodesis and possible subacromial decompression. PAST MEDICAL HISTORY: Hypertension, asthma, pulmonary embolism, COPD, peripheral neuropathy, hypothyroidism, DVT, osteoarthritis, spine problems, neck problems, upper back problems, sciatica, acid reflux, obesity, BPH, melanoma. SOCIAL HISTORY: Nonsmoker, nondrinker. PAST SURGICAL HISTORY: Discectomy, left hand surgery, right biceps surgery, left shoulder revision surgery, right shoulder revision surgery, bilateral knee arthroscopic surgery, and abdominal hernia surgery. FAMILY HISTORY: Noncontributory. REVIEW OF SYSTEMS: Chronic right shoulder pain. Otherwise, denies any shortness of breath, chest pain, nausea, vomiting or any other joint complaints. MEDICATIONS: 1. Levothyroxine 175 mcg daily. 2. Centrum Silver daily. 3. Tylenol Arthritis as needed. 4. Vitamin B12 daily. 5. Protonix 40 mg daily. 6. Amlodipine 5 mg daily. 7. Xarelto 20 mg daily. 8. Metoprolol 25 mg twice daily. 9. Prinivil 5 mg daily. 10. Zetia 10 mg daily. 11. Ultram 50 mg as needed. 12. Advair Diskus 100 mcg/50 mcg 1 puff twice daily as needed. 13. Neurontin 300 mg twice daily. 14. Atrovent HFA 17 mcg actuation aerosol 2 puffs daily 4 times. ALLERGIES: ADHESIVES, CLONIDINE, CODEINE, MEPERIDINE, ZOFRAN, SULFA AND ZOSTER VACCINE. PHYSICAL EXAMINATION: GENERAL: Well-developed, well-nourished 73-year-old male in no acute distress. He is alert and oriented x3 and pleasant. HEENT: Normocephalic, atraumatic. Extraocular motions are intact. Pupils are equal and reactive to light. HEART: Regular rate and rhythm, no murmurs appreciated. LUNGS: Clear. ABDOMEN: Soft and nontender. Bowel sounds present. EXTREMITIES: Right shoulder reveals full range of motion with pain. He has 3/5 strength with positive Orlando's, positive impingement maneuvering, positive AC joint tenderness. NEUROLOGIC: Neurovascularly, he is intact in his right upper extremity. DIAGNOSES: Right shoulder rotator cuff tear, biceps tendinopathy, impingement. He also has a history of hypertension, asthma, history of pulmonary embolism, chronic obstructive pulmonary disease, peripheral neuropathy, hypothyroidism, osteoarthritis, spine problems, neck problems, upper back problems, sciatica, acid reflux, obesity and benign prostatic hypertrophy and melanoma. PLAN: The patient was advised of his diagnosis. Indications, risks, benefits, postop course have all been reviewed. The patient wished to proceed with a right shoulder arthroscopic revision rotator cuff repair, possible biceps tenodesis, and possible subacromial decompression. Necessary consent forms, preoperative testing and clearances will be obtained.
[~2019-03-22 10:44] MED LIST changes: -ACET1TAB84 PO; -ADVIN10/60 INH; -AMLO5TAB3 PO; -ATRIN INH; +CEFAZOLIN 2000MG 2,000 MG/15 ML SYR IV SCH; -CYAN10005 PO; -EZET10TA63 PO; -LEVO175T25 PO; +LR 15ML/HR IV SCH; -MULT-351 PO; -NRN/300 PO; -PANT40TA PO; -QUIN20TA30 PO; +ROPIVACAINE 0.5% 5 MG/ML 30 ML VIAL ONE; -TRAM-10 PO
[2019-03-22] MEDS ORDERED: PROPOFOL IV EMULSION 10 MG/ML 20 ML VIAL IV ONE (11:45)
[2019-03-22] MEDS ORDERED: DEXAMETHASONE SOD INJ 4 MG/ML VIAL ONE (11:46)
[2019-03-22] MEDS ORDERED: fentaNYL citrate 100 MCG/2 ML VIAL ONE ×2 (11:46→14:38)
[2019-03-22] MEDS ORDERED: MIDAZOLAM HCL 1 MG/ML 2ML VIAL ONE (11:46)
[2019-03-22] MEDS ORDERED: LIDOCAINE HCL 2% 2 ML VIAL/AMP(20MG/ML) INFIL ONE (11:46)
--- NOTE | 2019-03-22 12:07 | History & Physical Bridge Note ---
Date of Service March 22, 2019 History & Physical Bridge Note I have examined the patient, reviewed the History & Physical and in the interval since the performance of the History & Physical I have noted the following changes of clinical significance: no changes noted
[2019-03-22] MEDS ORDERED: EpINEphrine HCL INJ 1 MG/ML 1ML SYRINGE ONE (12:37)
[2019-03-22] MEDS ORDERED: PROMETHAZINE HCL 6.25 MG in SODIUM CHLORIDE 0.9% 50 ML IV PRN (13:17)
[2019-03-22] MEDS ORDERED: LABETALOL HCL IV 5 MG/ML 20ML IV PRN (13:17)
[2019-03-22] MEDS ORDERED: fentaNYL citrate 100 MCG/2 ML VIAL IV PRN (13:17)
[2019-03-22] MEDS ORDERED: KETOROLAC 30 MG/ML VIAL IV PRN (13:17)
[2019-03-22] MEDS ORDERED: ATROPINE SULFATE 0.1 MG/ML 10ML SYR IV PRN (13:17)
[2019-03-22] MEDS ORDERED: ePHEDrine sulfate 50 MG/ML AMP ONE (13:59)
[2019-03-22] MEDS ORDERED: ROCURONIUM BROMIDE 10 MG/ML 5 ML VIAL ONE (15:02)
--- NOTE | 2019-03-22 16:41 | Post Operative Brief Note ---
Immediate Post Op Note v1 Date of Surgery March 22, 2019 Pre & Post Diagnosis Operation Date: 03/01/19 14:20 <No data on this case meets the specified criteria> Operation Date: 03/22/19 13:30 Pre-Op Diagnosis: Right shoulder posttraumatic rotator cuff tear failed prior rotator cuff repair, biceps tendinopathy, impingement, prior arthroscopic subacromial decompression distal clavicle excision and rotator cuff repair. Post-Op Diagnosis: Same. I identified the patient and participated in the time-out.: Yes Procedure Operation Date: 03/01/19 14:20 <No data on this case meets the specified criteria> Operation Date: 03/22/19 13:30 Actual Procedures p Right Shoulder Arthroscopy Revision Rotator Cuff Repair, Bicep Tenodesis, Subacromial Decompression(Right) - Ismael Uriarte MD Surgeon Ismael Uriarte MD Head Charger Renny GAMA Estimated Blood Loss 10 Findings Consistent with Post-Op Diagnosis Anesthesia Type General Regional Complications none Disposition Accompanied Patient To Recovery: No Disposition: Recovery Room Overlapping Procedure I was immediately available: during the entire case.
--- NOTE | 2019-03-22 17:23 | Anesthesiology Progress Note ---
Date of Service March 22, 2019 Anesthesia Post Procedure Vital Signs Vital Signs: Temp Pulse Pulse Resp BP Pulse Ox 03/22/19 17:15 77 14 155/77 H 100 03/22/19 17:05 76 17 147/75 H 99 03/22/19 16:55 37.2 C 82 17 130/66 96 03/22/19 11:25 37.2 C 75 16 160/82 H 98 Pain Intensity Right Shoulder: Pain Intensity: 0 Transfer of Care Handoff Completed per policy Notes Mental Status: alert / awake / arousable and participated in evaluation Patient Amnestic to Procedure: Yes Nausea / Vomiting: adequately controlled Pain: adequately controlled Airway Patency, RR, SpO2: stable & adequate BP & HR: stable & adequate Hydration State: stable & adequate Anesthetic Complications: no major complications apparent
[2019-03-22] MEDS ORDERED: MAGNESIUM HYDROXIDE SUSP 30 ML UDC PO PRN (17:43)
[2019-03-22] MEDS ORDERED: IPRATROPIUM BROMIDE HFA INHALER INH PRN (17:43)
[2019-03-22] MEDS ORDERED: METOCLOPRAMIDE HCL INJ 5 MG/ML 2 ML VIAL IV PRN (17:43)
[2019-03-22] MEDS ORDERED: SODIUM CHLORIDE 0.9% 1000ML 1,000 ML IV SCH (17:43)
[2019-03-22] MEDS ORDERED: NALOXONE HCL 0.4 MG/1 ML VIAL/CARP IV PRN (17:43)
[2019-03-22] MEDS ORDERED: HYDROmorphone INJ 0.5 MG/0.5 ML SYR IV PRN (17:43)
[2019-03-22] MEDS ORDERED: BISACODYL 10 MG SUPP PR PRN (17:43)
--- NOTE | 2019-03-22 17:54 | Operative Report ---
Post Operative Report Pre & Post Diagnosis Operation Date: 03/01/19 14:20 <No data on this case meets the specified criteria> Operation Date: 03/22/19 13:30 Pre-Op Diagnosis: Right shoulder post traumatic rotator cuff tear, failed rotator cuff repair history of prior rotator cuff repair subacromial decompression distal clavicle excision, biceps tendinopathy, subacromial impingement. Post-Op Diagnosis: Right shoulder rotator cuff tear massive, failed rotator cuff repair history of prior rotator cuff repair subacromial decompression distal clavicle excision, biceps tendinopathy with dislocation biceps tendon and minor recurrent subacrom ial impingement, glenohumeral DJD. I identified the patient and participated in the time-out.: Yes Procedure Operation Date: 03/01/19 14:20 <No data on this case meets the specified criteria> Operation Date: 03/22/19 13:30 Actual Procedures p Right Shoulder Arthroscopy Revision Rotator Cuff Repair, Bicep Tenodesis, Subacromial Decompression(Right) joint debridement- Ismael Uriarte MD Surgeon Ismael Uriarte MD Shell Mold Bonder Renny GAMA Estimated Blood Loss 10 Findings Consistent with Post-Op Diagnosis Specimens None Drains None Anesthesia Type General Regional Complications none Disposition Accompanied Patient To Recovery: No Disposition: Recovery Room Indications 73-year-old male with a fall a month ago increased pain weakness dysfunction of his right shoulder. MRI revealed massive rotator cuff tear with retraction previous decompression distal clavicle excision probable small anterior recurrent spur of the acromion and biceps tendinopathy subluxation biceps tendon. Description of Procedure The patient was to the operating room anesthetized under regional block and general anesthesia. The patient was positioned on the operating table in the 70 beachchair position. All of the other extremities were well-padded. The right upper extremity was prepped and draped in the usual sterile fashion. Examination demonstrated good passive range of motion old scars from previous surgery. Moderate obesity. BMI 36.8. Arthroscopy of the shoulder was performed via anterior and posterior arthroscopy portals. Posterior portal was placed in the soft spot and the anterior portal was placed in the rotator interval. Subsequent portals included lateral subacromial and anterior superior lateral and posterior superior lateral incisions for suture anchor placement. The following findings were noted: Massive rotator cuff tear with the upper subscapularis being torn a dislocated biceps under the subscapularis tendon the supraspinatus supraspinatus complete torn retracted. The posterior space tendon tissue was thin about the teres minor the mid infraspinatus tendon tissue was thick as well as the supraspinatus tendon tissue and he had good subscapularis tendon tissue. There was tend inopathy of the biceps tendon as well as the dislocation anteriorly. There was some mild grade 2 3 chondromalacia in the central glenoid there was an area grade 3 chondral malacia in the superior anterior humeral head area. There is still some mild cuff tissue on the greater tuberosity where there was soft tissue failure. There was a small spur in the anterior acromion where the previous repair was performed. Otherwise patient had good subacromial space. There was some chronically scarred bursal tissue mainly with a thick veil tissue over the infraspinatus posteriorly. Also some scar tissue over the subscapularis.. Attention was first taken to doing a thorough debridement of the glenohumeral joint articular surfaces. A spinal needle was placed to the biceps tendon and a tenotomy was performed with the radio frequency ablator. Releases performed in the anterior capsule rotator interval area to mobilize rotator cuff. Radio frequency ablator was utilized. The undersurface the rotator cuff was debrided where was frayed and torn. The edges rotator cuff debrided. The footprint of the supraspinatus infraspinous subscapularis repair down the bone for repair. The bicipital groove was debrided to bone for tenodesis. Minor subacromial decompression was performed with 5.5 bur removing a small spur and anterior acromion tapering to a flat type I shape. The biceps was tenodesed in the bicipital groove using a [employer] Q fix suture anchor 2.8 mm. Whipstitch and and simple sutures were placed. Arthroscopic knots were placed. Excess biceps was cut off. Subscapularis was repaired with a 5.5 Helicoil triple loaded suture anchor. The ripstop suture was placed with Arthrex fiber tape. 2 more triple loaded anchors were used for the supraspinatus and infraspinatus fixation. Fiber tape was placed into a multiple excess suture anchor [employer]. The repair was secure with the arm to side under no tension. The portal sites were closed with interrupted nylon sutures. Sterile dressings were applied and a pillow sling immobilizer. The patient tolerated the procedure well. My physician assistant golf course superintendent Renny GAMA, assisted in arm positioning, instrument management, suture management when indicated, incision closure, sling application, and will participate in the postoperative care of the patient. I attest to the content of the Intraoperative Record and any orders documented therein. Any exceptions are noted below.
--- NOTE | 2019-03-22 19:22 | History & Physical Report ---
Date of Service March 22, 2019 Assessment & Plan (1) Chronic lower back pain: (2) Cervicalgia: (3) Chronic reflux esophagitis: (4) Bilateral pulmonary embolism: (5) COPD (chronic obstructive pulmonary disease): (6) Extrinsic asthma: (7) Hyperlipidemia: (8) Hypertension: (9) Hypothyroidism: (10) S/P rotator cuff repair: 73-year-old male with a history of Hypertension, hyperlipidemia, Prediabetes, Asthma, GERD, BPH, Prior PE in August 2018/DVT on Xarelto, thyroidism, osteoarthritis, peripheral neuropathy, pre-melanoma admitted status post right shoulder lower arthroscopic revision of rotator cuff, biceps tenodesis, subacromial decompression by Dr. Reyes 03/22/2019, today. Status post right shoulder lower arthroscopic revision of rotator cuff, biceps tenodesis, subacromial decompression Care per surgical team And management: Tylenol 1 g every 8 hours scheduled, oxypurine, Dilaudid as needed Bowel regimen: Senokot and Colace scheduled milk of mag and Dulcolax as needed Dry eyes Lubricating eyedrops every 12 Asthma Continue home inhalers Advair and ipratropium Hypertension/hyperlipidemia Continue home lisinopril, metoprolol and Zetia History of DVT/PE Tinea home Xarelto Hypothyroidism Continue home levothyroxine Peripheral neuropathy Continue home gabapentin FEN/GI: Heart healthy diet DVT prophylaxis: Xarelto Code: Full Disposition MedSurg History of Present Illness Chief Complaint: Medical management Primary Care Provider: Codey Barrios 73-year-old male with a history of Hypertension, hyperlipidemia, Prediabetes, Asthma, GERD, BPH, Prior PE in August 2018/DVT on Xarelto, thyroidism, osteoarthritis, peripheral neuropathy, pre-melanoma admitted status post right shoulder lower arthroscopic revision of rotator cuff, biceps tenodesis, subacromial decompression by Dr. Reyes 03/22/2019, today. Medicine consulted for medical management. At this time patient only reports left eye foreign body sensation otherwise denies any fever, chills, chest pain, shortness of breath, nausea, vomiting, abdominal pain, constipation, diarrhea, hematochezia, melena, dysuria, hematuria. Allergies Allergy/AdvReac Type Severity Reaction Status Date / Time Sulfa (Sulfonamide Allergy Severe Anaphylaxis Verified 03/22/19 11:20 Antibiotics) A CHILD trimethoprim Allergy Severe Anaphylaxis- Verified 03/22/19 11:20 A CHILD adhesive Allergy Intermediate TAPE-SKIN Verified 03/22/19 11:20 IRRITATION clonidine Allergy Intermediate EDEMA/HIVES Verified 03/22/19 11:20 meperidine Allergy Intermediate SWELLING Verified 03/22/19 11:20 ondansetron Allergy Intermediate swelling Verified 03/22/19 11:20 codeine Allergy Mild RASH Verified 03/22/19 11:20 zoster vaccine live Allergy Unknown TAKES Verified 03/22/19 11:20 STERIOD INJECTIONS Home Medications Home Medications Medication Instructions Recorded Confirmed Type gabapentin 300 mg capsule 300 mg PO BID #60 cap 11/11/18 03/22/19 Rx naloxone 4 mg/actuation nasal spray 1 sprays INTNAS ONCE PRN #2 ea 11/11/18 03/22/19 Rx acetaminophen [Tylenol Arthritis 650 mg PO QID 02/15/19 03/22/19 History Pain] cyanocobalamin (vitamin B-12) 1,000 mcg PO DAILY 02/15/19 03/22/19 History [Vitamin B-12] levothyroxine 175 mcg PO QAM 02/15/19 03/22/19 History multivitamin 1 tab PO QAM 02/15/19 03/22/19 History pantoprazole 40 mg PO QAM 02/15/19 03/22/19 History tramadol 50 mg tablet See Rx Instructions .ROUTE 03/02/19 03/22/19 Rx .COMPLEX #120 tablet rivaroxaban 20 mg tablet 20 mg PO QAM #30 tab 03/06/19 03/22/19 Rx fluticasone 250 mcg-salmeterol 50 1 puffs INHALATION BID ea 03/09/19 03/22/19 History mcg/dose blistr powdr for inhalation ezetimibe 10 mg tablet 10 mg PO DAILY tab 03/13/19 03/22/19 History ipratropium bromide 17 1 puff INHALATION Q6H PRN #12.9 gm 03/13/19 03/22/19 Rx mcg/actuation HFA aerosol inhaler metoprolol succinate 25 mg See Rx Instructions .ROUTE 03/15/19 03/22/19 Rx tablet,extended release 24 hr .COMPLEX #30 tablet lisinopril 20 mg tablet See Rx Instructions .ROUTE 03/20/19 03/22/19 Rx .COMPLEX #90 tablet Past Med/Surg History Medical History Asthma rarely uses PRN inh Bilateral pulmonary embolism (Acute) Bilateral pulmonary embolism dx 08/2018. on xarelto. unk etiology BPH (benign prostatic hyperplasia) Cervicalgia (Chronic) Chronic back pain Chronic lower back pain (Chronic) Deep vein thrombosis (Chronic) Degenerative disc disease Dysmetabolic syndrome X (Chronic) Extrinsic asthma (Chronic) GERD (gastroesophageal reflux disease) History of benign thyroid tumor History of DVT (deep vein thrombosis) 12/2017 LLE - treated w/ AC x 6 months (unk etiology) 08/2017 RLE after stopping xarelto History of squamous cell carcinoma Hyperlipidemia (Chronic) Hypertension (Chronic) Hypothyroidism (Chronic) Kidney stones (Resolved) Osteoarthritis Prediabetes Spinal stenosis Surgical History History of arthroscopy of left knee History of arthroscopy of right knee History of colonoscopy History of esophagogastroduodenoscopy (EGD) History of fusion of cervical spine restricted ROM from side to side History of hand surgery Lt History of hernia repair left abdominal History of shoulder surgery BL History of squamous cell carcinoma excision History of surgery Lt biceps tendon repair History of total thyroidectomy Nausea and vomiting after administration of anesthetic agent Family History Brother Family history of diabetes mellitus Sister Family history of diabetes mellitus Grandmother (Maternal) Myocardial infarction Father Prostate cancer Social History Preferred Language: Yi Communication Ability: Effective Visual Impairment: No Limitations Hearing Ability: Normal 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 [employer]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 [employer] Boards Required: No Beliefs That Will Affect Care: None marital status: Current Living Situation: Spouse current occupational status: retired Feels Safe at Home: Yes Safety Concerns: Feels Safe At This Time Smoking Status: Former smoker Tobacco Type: cigarettes ; Age Started Using Tobacco: 22 ; Age Quit Using Tobacco: 24 ; Cigarettes Per Day: quit 50 years ago ; Do You Dip or Chew Tobacco: No ; Second Hand Exposure: No ; Tobacco Cessation Education Requested by Patient: No Hx Alcohol Use: No Hx Substance Use: No caffeine: No Dental Care, Regularly: Yes Seatbelt Use: always Sunscreen Use: Yes Review of Systems Review of Systems: As per HPI Physical Exam Physical Exam: General: In NAD Neuro: A&O x 4 Pulm: CTAB equal breath sounds bilaterally CV: RRR, no m/r/g Abdomen:+BS, no TTP in all quadrants, non-distended LE: no LE edema, no calf TTP RUE: R arm is sling/brace, able to move fingers, fingers warm to touch, cap refill 2 secs Results & Data Vital Signs (Past 12 Hours) Vital Signs Temp Pulse Pulse Pulse Resp BP Pulse Ox 03/22/19 18:47 76 17 161/78 H 94 03/22/19 18:15 36.7 C 68 16 159/92 H 96 03/22/19 17:45 36.8 C 77 16 123/79 93 03/22/19 17:35 37 C 71 16 144/80 H 99 03/22/19 17:25 71 19 149/82 H 100 03/22/19 17:15 77 14 155/77 H 100 03/22/19 17:05 76 17 147/75 H 99 03/22/19 16:55 37.2 C 82 17 130/66 96 03/22/19 11:25 37.2 C 75 16 160/82 H 98 Code Status & VTE Plan Code Status Full VTE Prophylaxis Plan VTE Prophylaxis will be ordered: Yes Supervising Physician Co-Signing Physician Notes I personally interviewed and examined the patient. I agree with history of present illness and physical exam mentioned above, I also performed my own history taking and examination. Past medical history and review of system has been obtained by myself I reviewed all pertinent labs and studies Reviewed current medications I discussed and formulated of the assessment and plan mentioned above. Please refer to the Summary mentioned below. 73-year-old man with past medical history of essential hypertension, d yslipidemia, asthma, GERD, BPH and recent DVT/PE on Xarelto presented to the hospital for elective right shoulder revision of rotator cuff arthroscopic procedure. Procedure went uneventful, he has no complaint from the procedure. But when he woke up he had a very dry left eye a little bit scratchy pain when he moves his eye he feels like there is a foreign body under his eyelid that scratching his eye, a little bit photophobia but no discharge no significant congestion, no previous eye disease, no history of glaucoma, visual acuity is normal. Ordered neomycin ointment for his left eye and instructed the nurse to patch it overnight, if no improvement in the morning consider ophthalmology evaluation to rule out any abrasion that might have happened during anesthesia, if pain gets worse at night nurse will inform MD for reevaluation. Initiation of his anticoagulation will be left up to the clearance orthopedic team. Otherwise continue home medications. General Appearance: not in acute distress Eyes: normal Sclerae but left eye slightly congested, extraocular muscle intact, visual acuity is normal and intact in both eyes, although he says that he has pain in his eye and feels a foreign body, examination of the eyes showed no foreign body, normal visual acuity, slight congestion but not severe, ENT: hearing grossly normal Neck: supple Respiratory/Chest: normal air entry bilateral ,no respiratory distress, no accessory muscle use Cardiovascular: regular rate, rhythm, no murmur Abdomen: non tender, soft, no masses Extremities: no edema musculoskeletal: no significant swelling or inflammation in any joint Neurologic/Psychiatric: Awake alert oriented times place and person moves all extremities sensation intact cranial nerves II-12 appear to be intact Skin: normal color, warm/dry, no rash Jennifer Land MD, [facility] Resident Activity Tracking Resident Involvement: Resident Care Provided Care Provided: Adult Hospital Medicine
[2019-03-22] MEDS ORDERED: SENNA 8.6 MG TAB PO SCH (21:00)
[2019-03-22] MEDS ORDERED: LISINOPRIL 20 MG TAB PO SCH (21:00)
[2019-03-22] MEDS: CEFAZOLIN 2000MG 2,000 MG/15 ML SYR IV SCH (21:10)
[2019-03-22] MEDS: DOCUSATE SODIUM 100 MG CAP PO SCH (21:10)
[2019-03-22] MEDS: GABAPENTIN 300 MG CAP PO SCH (21:10)
[2019-03-22] MEDS: FLUTICASONE/SALMETEROL 250/50 (ADVAIR) 14 PUFF/1 INHALER INH SCH (21:10)
[2019-03-22] MEDS: ACETAMINOPHEN 500 MG TAB PO SCH (21:10)
[2019-03-22] MEDS: ARTIFICIAL TEARS OP OINT 3.5 GM TUBE OP SCH (21:11)
--- NOTE | 2019-03-22 21:31 | Billing Data ---
Coding Level of Care Code 19070 Inpt Consult Level 3
[2019-03-22] MEDS: NEOMYCIN/POLYMYX/BACITR OP OINT 3.5 GM TUBE OP SCH (22:30)
[2019-03-23] MEDS: NEOMYCIN/POLYMYX/BACITR OP OINT 3.5 GM TUBE OP SCH ×3 (01:57→09:47)
[2019-03-23] MEDS: OXYCODONE HCL IR 5 MG TAB (IMMEDIATE RELEASE) PO PRN ×2 (04:41→08:57)
[2019-03-23] MEDS: ACETAMINOPHEN 500 MG TAB PO SCH (06:05)
[2019-03-23] MEDS: CEFAZOLIN 2000MG 2,000 MG/15 ML SYR IV SCH (06:05)
[2019-03-23] MEDS ORDERED: LEVOTHYROXINE SODIUM 175 MCG TABLET PO SCH (06:30)
[2019-03-23 06:51] LABS: Hematocrit (blood only) 34.9 % (42-52); Hemoglobin 10.8 g/dL (14.0-18.0); Mean Corpuscular Hemoglobin 25.2 pg (25-34); Mean Corpuscular Hgb Conc 30.9 g/dL (32-36); Mean Corpuscular Volume 81.4 fL (80-100); Mean Platelet Volume 9.3 fL (7.4-10.4); Platelet Count 366 K/uL (130-400); RDW Coefficient of Variation 16.4 % (11.5-14.5); Red Blood Count 4.29 M/uL (4.7-6.1); White Blood Count 6.97 K/uL (4.8-10.8)
[2019-03-23 07:22] LABS: Calcium 8.2 mg/dl (8.5-10.1); Creatinine Clr Calc Pharmacy 87.7 ml/min; Est GFR (African American) 100.6; Est GFR (Non-African American) 86.8; Potassium 3.8 mmol/L (3.5-5.1)
[2019-03-23] MEDS: FLUTICASONE/SALMETEROL 250/50 (ADVAIR) 14 PUFF/1 INHALER INH SCH (08:25)
[2019-03-23] MEDS: GABAPENTIN 300 MG CAP PO SCH (08:25)
[2019-03-23] MEDS: DOCUSATE SODIUM 100 MG CAP PO SCH (08:25)
[2019-03-23] MEDS: ARTIFICIAL TEARS OP OINT 3.5 GM TUBE OP SCH (08:27)
--- NOTE | 2019-03-23 08:52 | Orthopedic Progress Note ---
Date of Service March 23, 2019 Assessment & Plan (1) S/P rotator cuff repair: POD 1 s/p Right RTC tear repair. No formal PT for shoulder. Pain management DVT prophylaxis - SCD's, ASA Plan for dc to home today. Present on Admission?: Yes Subjective Sitting in chair at bedside eating breakfast. Having some shoulder pain this AM. No other complaints. Denies SOB,CP,LH. Hoping to go home today. Physical Exam Physical Exam: Dressings C/D/I. Has good ROM of wrist/fingers. CMS intact. Results & Data Vital Signs (Past 12 Hours) Vital Signs Temp Pulse Pulse Resp BP Pulse Ox 03/23/19 08:27 76 158/79 H 03/23/19 07:48 37.6 C H 77 14 156/94 H 99 03/23/19 03:55 37.1 C 82 16 113/72 96 03/22/19 23:32 37.1 C 92 H 16 139/82 93 03/22/19 21:00 95 Laboratory Results Laboratory Results WBC 6.97 K/uL (4.8-10.8) 03/23/19 06:26 RBC 4.29 M/uL (4.7-6.1) L 03/23/19 06:26 Hgb 10.8 g/dL (14.0-18.0) L 03/23/19 06:26 Hct 34.9 % (42-52) L 03/23/19 06:26 MCV 81.4 fL (80-100) 03/23/19 06:26 MCH 25.2 pg (25-34) 03/23/19 06:26 MCHC 30.9 g/dL (32-36) L 03/23/19 06:26 RDW Std Deviation 49.0 fL (36.4-46.3) H 03/23/19 06:26 RDW Coeff of Bindu 16.4 % (11.5-14.5) H 03/23/19 06:26 Plt Count 366 K/uL (130-400) 03/23/19 06:26 MPV 9.3 fL (7.4-10.4) 03/23/19 06:26 Sodium 143 mmol/L (136-145) 03/23/19 06:26 Potassium 3.8 mmol/L (3.5-5.1) 03/23/19 06:26 Chloride 111 mmol/L (98-107) H 03/23/19 06:26 Carbon Dioxide 21 mmol/L (21-32) 03/23/19 06:26 Anion Gap 11.0 (3-11) 03/23/19 06:26 BUN 16 mg/dl (7-18) 03/23/19 06:26 Creatinine 0.87 mg/dl (0.6-1.4) 03/23/19 06:26 Est Cr Clr Drug Dosing 87.7 ml/min 03/23/19 06:26 Est GFR ( Amer) 100.6 03/23/19 06:26 Est GFR (Non-Af Amer) 86.8 03/23/19 06:26 BUN/Creatinine Ratio 18.0 (10-20) 03/23/19 06:26 Glucose 122 mg/dl (70-99) H 03/23/19 06:26 Calcium 8.2 mg/dl (8.5-10.1) L 03/23/19 06:26 Hepatitis C Ab Screen Neg (Neg) 03/23/19 06:26
[2019-03-23] MEDS ORDERED: METOPROLOL SUCC 25MG EXT REL TAB PO SCH (09:00)
[2019-03-23] MEDS ORDERED: PANTOprazole 40 MG TAB PO SCH (09:00)
[2019-03-23] MEDS ORDERED: CYANOCOBALAMIN 500 MCG TABLET (VITAMIN B-12) PO SCH (09:00)
[2019-03-23] MEDS ORDERED: MULTIVITAMIN TAB PO SCH (09:00)
[2019-03-23] MEDS ORDERED: EZETIMIBE 10 MG TABLET PO SCH (09:00)
--- NOTE | 2019-03-23 10:52 | Hospitalist Progress Note ---
Date of Service March 23, 2019 Assessment & Plan (1) S/P rotator cuff repair: Status post right shoulder lower arthroscopic revision of rotator cuff, biceps tenodesis, subacromial decompression 03/22 Pain manegament, dvt proph per surgery (2) Chronic reflux esophagitis: Continue home pantoprazole (3) COPD (chronic obstructive pulmonary disease): Continue home inhalers Advair and ipratropium (4) Extrinsic asthma: as above (5) Hyperlipidemia: Continue Zetia (6) Hypertension: continue lisinopril, metoprolol (7) Hypothyroidism: continue home levothyroxine (8) Dry eye syndrome: Lubricating eyedrops every 12 (9) DVT prophylaxis: patient with history of DVT/PE Resume home rivaroxaban when ok with surgery Mr. Landry is doing well medically and can be discharged when ok with surgery. Thank you for this consult, medicine will sign off Subjective Mr. Landry is feeling well. No complaints except for pain at the surgical site. ROS Constitutional: no chills, aches, sweats or fever Respiratory: no sob,cough, sputum, or wheezing Cardiac: no chest pain, palpitations, edema, orthopnea or lightheadedness GI: no abdominal pain, nausea, vomiting, diarrhea or constipation : no dysuria or hesitancy Extremities: no joint pain or weakness Skin: no rash All other systems reviewed and negative Physical Exam Physical Exam: General: no distress Eyes: normal inspection, PERLL Respiratory: chest non tender, clear to auscultation, normal breath sounds, no respiratory distress, no accessory muscle use Cardiac: regular rate and rhythm, no rub or gallop, no murmur, no edema, no jvd GI/: active bowel sounds, no abd pain or tenderness, soft, non distended Extremities: normal range of motion, normal strength, non tender Neuro/Psych: alert and oriented x 3, normal mood and affect Skin: normal color, dry Results & Data Vital Signs (Past 12 Hours) Vital Signs Temp Pulse Pulse Resp BP Pulse Ox 03/23/19 08:27 76 158/79 H 03/23/19 07:48 37.6 C H 77 14 156/94 H 99 03/23/19 03:55 37.1 C 82 16 113/72 96 03/22/19 23:32 37.1 C 92 H 16 139/82 93 PG Care Time/CCT Total # of Minutes Spent Total Time Spent with Patient: Total time spent is greater than 50% in coordination of care (as documented) at patient's floor/unit and/or counseling patient:
[2019-03-23] MEDS ORDERED: RIVAROXABAN 20 MG TAB PO SCH (16:30)
--- NOTE | 2019-03-29 15:52 | Discharge Summary ---
DISCHARGE DIAGNOSES: Right shoulder rotator cuff tear, large failed rotator cuff repair with history of prior rotator cuff repair, subacromial decompression, distal clavicle excision, biceps tendinopathy with dislocation of biceps tendon and minor recurrent subacromial impingement and glenohumeral degenerative joint disease. SECONDARY DIAGNOSES: Hypertension, asthma, COPD, history of pulmonary embolism, peripheral neuropathy, hypothyroidism, history of deep vein thrombosis, osteoarthritis, history of degenerative spine disease, sciatica, gastroesophageal reflux disease, obesity, BPH, melanoma. CONSULTS: Dr. George Ibrahim COMPLICATIONS: None. PROCEDURES: Right shoulder arthroscopy with revision rotator cuff repair, biceps tenodesis, subacromial decompression, right by Dr. Uriarte on 03/22/2019. BRIEF HISTORY: As dictated in the history and physical. HOSPITAL SUMMARY: The patient was admitted on the above-noted date and had the above-noted surgery performed, which he tolerated well. On the first postoperative day, he was sitting in his chair at the bedside eating breakfast. He was having shoulder pain that morning, but no other complaints. Denied shortness of breath, chest pain or lightheadedness and he was hoping to go home. Dressings were clean, dry and intact. He had good range of motion of his wrist and fingers. 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 Vital signs were essentially stable with some mild increase in his systolic blood pressure of 158. Hemoglobin was 10.8. He was seen by [facility] hospitalist during his stay and by his first postoperative day, he was remaining stable and it was felt he could be discharged to home. For further review, please see chart. LABORATORY AND X-RAY DATA: As per chart. DISCHARGE INSTRUCTIONS: The patient discharged to home in satisfactory condition on 03/23/2019. DIET: Regular. ACTIVITY: Follow rotator cuff repair instruction sheets and special care instructions as noted and follow up with Dr. Uriarte in 2 weeks. The patient to call for appointment if one has not been made for you. DISCHARGE MEDICATIONS: Acetaminophen 1000 mg p.o. q. 8 hours, Artificial tears 1 application q. 12 hours, oxycodone 5-10 mg p.o. q. 6 hours, Senokot 17.2 mg p.o. at bedtime. Resume home meds as listed and stop taking previous tramadol and acetaminophen dosages.
== END 2019-03-23 12:20 | disposition home or self-care (01) ==
LOC: ASU 10:44 → 3E 10:44

== ENCOUNTER 2022-06-09 06:21 | Observation (INO) ==
--- NOTE | 2022-05-12 12:00 | PAT Medication Instructions ---
Medication Instructions Date of Service May 12, 2022 Home Medications Medication Instructions Recorded ipratropium bromide 17 1 puff inhalation Q6H PRN 11/25/ mcg/actuation HFA aerosol inhaler Shortness Of Breath Or Wheezing (Atrovent HFA) #12.9 grams varicella-zoster glycoE [id number] 0.5 ml IM .COMPLEX #1 ea 11/30/21 adj(PF) 50 mcg/0.5 mL IM susp, kit (Shingrix (PF)) rivaroxaban 20 mg tablet (Xarelto) 20 mg PO QAM #30 tabs 12/15/21 fluticasone 250 mcg-salmeterol 50 1 inh inhalation BID #60 ea 03/02/22 mcg/dose blistr powdr for inhalation (Advair Diskus) tramadol 50 mg tablet 50 mg PO Q6H PRN pain #120 tabs 05/11/22 cyanocobalamin (vitamin B-12) 1,000 mcg tablet (Vitamin B-12) 1,000 mcg PO QDL ipratropium bromide 17 mcg/actuation HFA aerosol inhaler (Atrovent HFA) 1 puff inhalation Q6H PRN ferrous sulfate 325 mg (65 mg iron) tablet 325 mg PO Q OTHER DAY acetaminophen 650 mg tablet,extended release 650 mg PO QID diclofenac sodium 1 % topical gel 2 g topical QID yipejimkunkw-kcbmxkga-mnpauy tablet 1 tab PO QDL varicella-zoster glycoE [id number] adj(PF) 50 mcg/0.5 mL IM susp, kit (Shingrix (PF)) 0.5 ml IM .COMPLEX rivaroxaban 20 mg tablet (Xarelto) 20 mg PO QAM fluticasone 250 mcg-salmeterol 50 mcg/dose blistr powdr for inhalation (Advair Diskus) 1 inh inhalation BID ezetimibe 10 mg tablet (Zetia) 10 mg PO QDL famotidine 40 mg tablet 40 mg PO QAM gabapentin 300 mg capsule 300 mg PO BID gabapentin 300 mg capsule 600 mg PO HS levothyroxine 150 mcg capsule 150 mcg PO QAM lisinopril 20 mg tablet 20 mg PO HS metoprolol succinate 100 mg tablet,extended release 24 hr 100 mg PO BID pantoprazole 40 mg tablet,delayed release 40 mg PO QAM tramadol 50 mg tablet 50 mg PO Q6H PRN Continue as directed ezetimibe 10 mg tablet (Zetia) 10 mg PO QDL ASK your surgeon for instructions diclofenac sodium 1 % topical gel 2 g topical QID ASK your prescriber and surgeon rivaroxaban 20 mg tablet (Xarelto) 20 mg PO QAM(in order for spinal or epidural anesthesia, Xarelto needs to be stopped 72 hours/3 days before surgery. Please check if okay with doctor that prescribes this to you) STOP taking 2 weeks before surgery rnsgksnidthg-sawqpkch-ibvrrx tablet 1 tab PO QDL DO NOT take the morning of surgery cyanocobalamin (vitamin B-12) 1,000 mcg tablet (Vitamin B-12) 1,000 mcg PO QDL ferrous sulfate 325 mg (65 mg iron) tablet 325 mg PO Q OTHER DAY Take morning of surgery With a small sip of water, OTHERWISE NOTHING TO EAT OR DRINK AFTER MIDNIGHT: ipratropium bromide 17 mcg/actuation HFA aerosol inhaler (Atrovent HFA) 1 puff inhalation Q6H PRN(if needed) acetaminophen 650 mg tablet,extended release 650 mg PO QID fluticasone 250 mcg-salmeterol 50 mcg/dose blistr powdr for inhalation (Advair Diskus) 1 inh inhalation BID famotidine 40 mg tablet 40 mg PO QAM gabapentin 300 mg capsule 300 mg PO BID levothyroxine 150 mcg capsule 150 mcg PO QAM metoprolol succinate 100 mg tablet,extended release 24 hr 100 mg PO BID pantoprazole 40 mg tablet,delayed release 40 mg PO QAM tramadol 50 mg tablet 50 mg PO Q6H PRN(if needed) Take evening before surgery ipratropium bromide 17 mcg/actuation HFA aerosol inhaler (Atrovent HFA) 1 puff inhalation Q6H PRN(if needed) acetaminophen 650 mg tablet,extended release 650 mg PO QID fluticasone 250 mcg-salmeterol 50 mcg/dose blistr powdr for inhalation (Advair Diskus) 1 inh inhalation BID gabapentin 300 mg capsule 300 mg PO BID gabapentin 300 mg capsule 600 mg PO HS lisinopril 20 mg tablet 20 mg PO HS metoprolol succinate 100 mg tablet,extended release 24 hr 100 mg PO BID tramadol 50 mg tablet 50 mg PO Q6H PRN(if needed) Other Notes If you have any questions please call us at [phone] or [phone] or [phone] or [phone]
--- NOTE | 2022-05-21 08:33 | Anesthesiology Consultation ---
Date of Service May 21, 2022 Assessment & Plan (1) Encounter for pre-operative examination: - COVID screening: Per assessment on 05/21: No known COVID-19 positive contacts or current COVID-19 related symptoms. Travel screen negative. Patient vaccinated. At surgeon discretion if preop Covid testing being done. - Outpatient joint assessment: Pt currently scheduled for inpatient pathway. If surgeon requests review for outpatient joint pathway, patient is not recommended candidate for outpatient joint program from anesthesia standpoint. - Cardiology office visit (03/01/22): "Patient continues to do well from a cardiac standpoint. He still experiences palpitations described as skipped beats which usually occur when he is watching the news in the evening -- these have not changed in character and he denies any associated symptoms with this palpitations. Patient has been active working in his yard, cleaning out his garden, running the [email or web address], etc without limiting cardiopulmonary symptoms. Patient has advanced arthritis in bilateral knees which has slowed him down. He has been seeing Dr. Tevin Stroud regarding his knees and the patient is seriously considering knee replacement surgery. Patient has not experienced any angina pectoris or anginal equivalent symptoms, overt signs or symptoms of heart failure, nor has he had any symptoms suggestive of a sustained dys rhythmia. Patient has not had any symptoms suggestive of stroke or mini stroke. He has not had any symptoms suggestive of recurrent pulmonary emboli. He does not experience claudication with his day-to-day activities. Patient remains compliant with his medications and has not had any adverse side effects. We discussed the fact that higher blood pressures can contribute to more frequent ectopic beats -- and his blood pressure remained elevated on recheck today at 148/90. As mentioned, the patient is considering knee replacements with Dr. Stroud. Based on his functional status without limiting cardiopulmonary symptoms, normal LV systolic function, and a negative dobutamine stress echocardiogram on 08/28/20 -- patient is an acceptable surgical risk to proceed with total knee arthroplasties as he is planning. Patient was advised to take his usual dose of Toprol XL the morning of surgery with sips of water. Recommend aggressive DVT prophylaxis postoperatively. There is no need for further ischemic workup at this time." - Pt scheduled to see PCP prior to surgery. Awaiting office visit note ([facility], appt 05/31). Chart Review Chart Review: Patient seen in Pre Admission Testing Teaching & Discussion Pre-Anesthesia Teaching/Discussion Notes: Instructed NPO after midnight before surgery,except medications with 15 cc of water. Medication instructions provided according to the PAT guidelines. History Surgery Operation Date: 06/09/22 11:40 Proposed Procedures p Right Total Knee Arthroplasty - Syed Stroud DO Height/Weight Height: 5 ft 5.5 in Weight: 106.6 kg Allergies Allergy/AdvReac Type Severity Reaction Status Date / Time Sulfa (Sulfonamide Allergy Severe Anaphylaxis Verified 05/11/22 15:40 Antibiotics) A CHILD trimethoprim Allergy Severe Anaphylaxis- Verified 05/11/22 15:40 A CHILD adhesive Allergy Intermediate TAPE-SKIN Verified 05/11/22 15:40 IRRITATION clonidine Allergy Intermediate EDEMA/HIVES Verified 05/11/22 15:40 meperidine Allergy Intermediate SWELLING Verified 05/11/22 15:40 ondansetron Allergy Intermediate swelling Verified 05/11/22 15:40 codeine Allergy Mild RASH/Itchin Verified 05/11/22 15:40 g zoster vaccine live Allergy Unknown Unknown Verified 05/11/22 15:40 Medications Home Medications Medication Instructions Recorded Confirmed Last Taken cyanocobalamin (vitamin B-12) 1,000 mcg PO QDL 02/15/19 05/11/22 04/27/22 1,000 mcg tablet (Vitamin B-12) ipratropium bromide 17 1 puff inhalation Q6H PRN 11/26/19 05/11/22 04/28/22 mcg/actuation HFA aerosol inhaler Shortness Of Breath Or Wheezing (Atrovent HFA) #12.9 grams ferrous sulfate 325 mg (65 mg 325 mg PO Q OTHER DAY 08/19/20 05/11/22 04/27/22 iron) tablet acetaminophen 650 mg 650 mg PO QID 12/19/20 05/11/22 12/19/20 18:00 tablet,extended release diclofenac sodium 1 % topical gel 2 g topical QID 12/19/20 05/11/22 12/19/20 dxyajahmvztf-hlorzsna-nmfgts tablet 1 tab PO QDL 12/19/20 05/11/22 04/28/22 varicella-zoster glycoE [id number] 0.5 ml IM .COMPLEX #1 ea 11/30/21 05/11/22 Unknown adj(PF) 50 mcg/0.5 mL IM susp, kit (Shingrix (PF)) rivaroxaban 20 mg tablet (Xarelto) 20 mg PO QAM #30 tabs 12/15/21 05/11/22 04/26/22 08:00 fluticasone 250 mcg-salmeterol 50 1 inh inhalation BID #60 ea 03/02/22 05/11/22 04/28/22 mcg/dose blistr powdr for inhalation (Advair Diskus) ezetimibe 10 mg tablet (Zetia) 10 mg PO QDL 04/22/22 05/11/22 04/28/22 famotidine 40 mg tablet 40 mg PO QAM 04/22/22 05/11/22 04/28/22 gabapentin 300 mg capsule 300 mg PO BID 04/22/22 05/11/22 04/28/22 gabapentin 300 mg capsule 600 mg PO HS 04/22/22 05/11/22 04/28/22 levothyroxine 150 mcg capsule 150 mcg PO QAM 04/22/22 05/11/22 04/29/22 08:30 lisinopril 20 mg tablet 20 mg PO HS 04/22/22 05/11/22 04/28/22 metoprolol succinate 100 mg 100 mg PO BID 04/22/22 05/11/22 04/29/22 08:30 tablet,extended release 24 hr pantoprazole 40 mg tablet,delayed 40 mg PO QAM 04/22/22 05/11/22 04/29/22 08:30 release tramadol 50 mg tablet 50 mg PO Q6H PRN pain #120 tabs 05/11/22 05/11/22 Unknown Past Medical History Medical History Anemia Asthma Stable Bilateral pulmonary embolism 08/2018 (unknown etiology) BPH (benign prostatic hyperplasia) Cervicalgia Chronic lower back pain Degenerative disc disease Dysmetabolic syndrome X GERD (gastroesophageal reflux disease) History of benign thyroid tumor History of DVT (deep vein thrombosis) 12/2017 LLE - treated w/ AC x 6 months (unknown etiology) 08/2017 RLE after stopping xarelto History of MRSA infection MRSA in right knee treated in 2001 (Anna at surgeon's office made aware) History of squamous cell carcinoma Hyperlipidemia Hypertension Hypothyroidism Kidney stones Osteoarthritis Prediabetes diet controlled Spinal stenosis Exercise / Class Metabolic Activity II 4-5 Yardwork/Stairs/Walk up hill (one FS (no CP, no SOB)) Past Family History Family History Brother Family history of diabetes mellitus Sister Family history of diabetes mellitus Grandmother (Maternal) Myocardial infarction Father Prostate cancer Mother Family history of reaction to anesthesia nausea/vomiting Brother Family history of diabetes mellitus Sister Family history of diabetes mellitus Denies family history of Ovarian cancer Breast cancer Colorectal cancer Past Surgical History Surgical History History of arthroscopy of left knee History of arthroscopy of right knee History of colonoscopy Colonoscopy/EGD (for anemia evaluation- 04/29/22): MAC at [facility] History of esophagogastroduodenoscopy (EGD) History of fusion of cervical spine restricted ROM from side to side per pt History of hand surgery Left History of hernia repair Left abdominal History of shoulder surgery Left History of shoulder surgery Right x3 (+ hardware) History of squamous cell carcinoma excision History of surgery Left biceps tendon repair History of total thyroidectomy Nausea and vomiting after administration of anesthetic agent S/P rotator cuff repair Past Anesthesia History No Hx of Anesthesia Complications and No Family Hx of Anesthesia Complications (except mother- ponv) History of PONV History of PONV and Hx of Motion Sickness Social History Smoking Status: Former smoker tobacco type: cigarettes Do You Dip or Chew Tobacco: No Smoking End Date: Quit 54 years ago Hx Alcohol Use: No Hx Substance Use: No substance use type: does not use Review of Systems Patient denies chest pain, shortness of breath, dyspnea on exertion, fever, chills, cough, wheezing, palpitations. Physical Exam Vital Signs VITALS BP 171/94 P 61 TEMP 98.3 SP02 98%RA RESP 16 PHYSICAL Full cervical extension range of motion. Full TMJ range of motion. TMD 4 finger breaths Mallampati Score 2 Dentition: upper partial Lungs: clear throughout to auscultation Cardiac: regular rate and rhythm, no murmurs noted Spine: normal Carotid arteries: negative bruit Extremities: no edema Lab Results Anesthesia Preop Results Results Anesthesia Widget: WBC 4.56 K/ul (4.8-10.8) L 05/21/22 Hgb 14.1 g/dl (14.0-18.0) 05/21/22 Hct 44.5 % (40.1-51.0) 05/21/22 Plt 268 K/uL (130-400) 05/21/22 Na 144 mmol/L (136-145) 05/21/22 K 4.5 mmol/L (3.5-5.1) 05/21/22 Cl 107 mmol/L (98-107) 05/21/22 CO2 32 mmol/L (21-32) 05/21/22 BUN 15 mg/dl (6-23) 05/21/22 Creat 0.91 mg/dl (0.6-1.4) 05/21/22 Glucose Level 93 mg/dl (70-99(Fasting)) 05/21/22 PT 13.6 Seconds (9.0-12.0) H 05/21/22 PTT 38.4 Seconds (21.0-31.0) H 05/21/22 INR 1.3 (0.9-1.1) H 05/21/22 HA1c 6.0 % (4.5-5.6) H 05/21/22 Urine Color Dark Yellow 05/21/22 Urine Appearance Clear (Clear) 05/21/22 Urine pH 5.5 (4.5-7.5) 05/21/22 Urine Specific [place] 1.024 (1.000-1.030) 05/21/22 Urine Protein Trace (Negative) H 05/21/22 Urine Glucose (UA) Negative (Negative) 05/21/22 Urine Ketones Negative (Negative) 05/21/22 Urine Blood Negative (Negative) 05/21/22 Urine Nitrite Negative (Negative) 05/21/22 Urine Bilirubin Negative (Negative) 05/21/22 Urine Urobilinogen Negative (Negative) 05/21/22 Urine Leukocyte Esterase Negative (Negative) 05/21/22 Urine WBC (Auto) 1-5 /hpf (0-5) 05/21/22 Urine RBC (Auto) 5-10 /hpf (0-4) H 05/21/22 Urine Hyaline Casts (Auto) 0 /lpf (0-5) 05/21/22 Urine Epithelial Cells (Auto) 10-20 /lpf (0-5) H 05/21/22 Urine Bacteria (Auto) Negative (Negative) 05/21/22 Blood Type O Positive 05/21/22 Antibody Screen NEGATIVE 05/21/22 Testing Laboratory Results Elevated coags- pt on Apixiban* Electrocardiogram Date: 05/21/22 SB at 59bpm. Otherwise normal ECG. NS ST/TWA. Chest X-Ray Date: 05/21/22 FINDINGS: No lines and tubes are seen. The cardiomediastinal silhouette is stable. Linear atelectasis at the left lung base. No evidence of pleural effusion or pneumothorax. IMPRESSION: No acute chest disease. Echocardiogram Date: 08/24/18 EF 55 to 60%. Mild concentric LVH. Grade 1 diastolic dysfunction. Mild RAD. RVSP 40 to 50 mmHg. Mild IVC dilation. Stress Test Date: 08/28/20 Type: DSE Negative dobutamine stress echo for ischemia 91% MPHR. Indeterminate dobutamine ECG for ischemia due to progression of baseline abnormalities. Echo: EF 55 to 60%. No regional motion abnormalities. Moderate concentric LVH. No significant diastolic dysfunction. No significant valvular disease. COVID-19 Risk Screen Screening Information COVID-19 Screen Date: 05/21/22 Exposure 21 Days Family/Household +COVID Last 21 Days: No Exposure 10 Days Any COVID Exposure Last 10 Days: No Symptoms Last 10 Days Experienced COVID Sx Last 10 Days: No + COVID 0-90 Days COVID + in Last 0-90 Days: No
--- NOTE | 2022-05-21 15:22 | History & Physical Report ---
Date of Service May 21, 2022 date of surgery: 06/09/22 Procedure: Right Total Knee Arthroplasty Surgeon: Syed Stroud Assessment & Plan (1) Arthritis of right knee: Plan: Further care discussed with patient and at this point in time has failed conservative measures and would like to proceed with a Right total knee replacement. Plan on discharge will be home with home health physical therapy. DVT prophylaxiswith TEDs, SCDs and will also resume Xarelto postop. Patient will have follow up appointment in our office two weeks post op for staple/suture removal and re-evaluation. Patient otherwise has no other questions or concerns. The risks and benefits have been discussed including, but not limited to, risk of infection, nerve injury, stiffness, loss of motion, failure to improve, etc. Reasonable outcomes and options of treatment were discussed. An explanation of appropriate alternatives to the procedure that may be advantageous were discussed and their risks and benefits, as well as the risks and benefits of not proceeding with treatment. I offered to answer any additional inquiries concerning the treatment involved. All the patient's questions were answered. The patient is agreeable, understanding of the treatment plan and alternatives, and wishes to proceed with the treatment plan. History of Present Illness Chief Complaint: Right knee pain Primary Care Provider: Jaguar Renteria DO Manjeet is a pleasant 76-year-old male who presented for preop evaluation prior to his right total knee replacement. He has been having pain in his knee for many years now which is gradually worsened and is now affecting his daily activities including walking standing using stairs. He is tried and failed prior corticosteroid injections as well as viscosupplementation without relief. He is tried Tylenol, he is unable to take anti-inflammatories due to his anticoagulants. Rates his current pain as a 7 out of 10. Otherwise has failed conservative measures and would like to proceed with a right total knee replacement Allergies Allergy/AdvReac Type Severity Reaction Status Date / Time Sulfa (Sulfonamide Allergy Severe Anaphylaxis Verified 05/11/22 15:40 Antibiotics) A CHILD trimethoprim Allergy Severe Anaphylaxis- Verified 05/11/22 15:40 A CHILD adhesive Allergy Intermediate TAPE-SKIN Verified 05/11/22 15:40 IRRITATION clonidine Allergy Intermediate EDEMA/HIVES Verified 05/11/22 15:40 meperidine Allergy Intermediate SWELLING Verified 05/11/22 15:40 ondansetron Allergy Intermediate swelling Verified 05/11/22 15:40 codeine Allergy Mild RASH/Itchin Verified 05/11/22 15:40 g zoster vaccine live Allergy Unknown Unknown Verified 05/11/22 15:40 Home Medications Medication Instructions Recorded Confirmed Type cyanocobalamin (vitamin B-12) 1,000 mcg PO QDL 02/15/19 05/11/22 History 1,000 mcg tablet (Vitamin B-12) ipratropium bromide 17 1 puff inhalation Q6H PRN 11/26/19 05/11/22 Rx mcg/actuation HFA aerosol inhaler Shortness Of Breath Or Wheezing (Atrovent HFA) #12.9 grams ferrous sulfate 325 mg (65 mg 325 mg PO Q OTHER DAY 08/19/20 05/11/22 History iron) tablet acetaminophen 650 mg 650 mg PO QID 12/19/20 05/11/22 History tablet,extended release diclofenac sodium 1 % topical gel 2 g topical QID 12/19/20 05/11/22 History hhpzsrscnhsd-dvkhpboy-ridlcl tablet 1 tab PO QDL 12/19/20 05/11/22 History varicella-zoster glycoE [id number] 0.5 ml IM .COMPLEX #1 ea 11/30/21 05/11/22 Rx adj(PF) 50 mcg/0.5 mL IM susp, kit (Shingrix (PF)) rivaroxaban 20 mg tablet (Xarelto) 20 mg PO QAM #30 tabs 12/15/21 05/11/22 Rx fluticasone 250 mcg-salmeterol 50 1 inh inhalation BID #60 ea 03/02/22 05/11/22 Rx mcg/dose blistr powdr for inhalation (Advair Diskus) ezetimibe 10 mg tablet (Zetia) 10 mg PO QDL 04/22/22 05/11/22 History famotidine 40 mg tablet 40 mg PO QAM 04/22/22 05/11/22 History gabapentin 300 mg capsule 300 mg PO BID 04/22/22 05/11/22 History gabapentin 300 mg capsule 600 mg PO HS 04/22/22 05/11/22 History levothyroxine 150 mcg capsule 150 mcg PO QAM 04/22/22 05/11/22 History lisinopril 20 mg tablet 20 mg PO HS 04/22/22 05/11/22 History metoprolol succinate 100 mg 100 mg PO BID 04/22/22 05/11/22 History tablet,extended release 24 hr pantoprazole 40 mg tablet,delayed 40 mg PO QAM 04/22/22 05/11/22 History release tramadol 50 mg tablet 50 mg PO Q6H PRN pain #120 tabs 05/11/22 05/11/22 Rx Past Med/Surg History Medical History Anemia Asthma Stable Bilateral pulmonary embolism 08/2018 (unknown etiology) BPH (benign prostatic hyperplasia) Cervicalgia Chronic lower back pain Degenerative disc disease Dysmetabolic syndrome X GERD (gastroesophageal reflux disease) History of benign thyroid tumor History of DVT (deep vein thrombosis) 12/2017 LLE - treated w/ AC x 6 months (unknown etiology) 08/2017 RLE after stopping xarelto History of MRSA infection MRSA in right knee treated in 2001 (Anna at surgeon's office made aware) History of squamous cell carcinoma Hyperlipidemia Hypertension Hypothyroidism Kidney stones Osteoarthritis Prediabetes diet controlled Spinal stenosis Surgical History History of arthroscopy of left knee History of arthroscopy of right knee History of colonoscopy Colonoscopy/EGD (for anemia evaluation- 04/29/22): MAC at [facility] History of esophagogastroduodenoscopy (EGD) History of fusion of cervical spine restricted ROM from side to side per pt History of hand surgery Left History of hernia repair Left abdominal History of shoulder surgery Left History of shoulder surgery Right x3 (+ hardware) History of squamous cell carcinoma excision History of surgery Left biceps tendon repair History of total thyroidectomy Nausea and vomiting after administration of anesthetic agent S/P rotator cuff repair Family History Brother Family history of diabetes mellitus Sister Family history of diabetes mellitus Grandmother (Maternal) Myocardial infarction Father Prostate cancer Mother Family history of reaction to anesthesia nausea/vomiting Brother Family history of diabetes mellitus Sister Family history of diabetes mellitus Denies family history of Ovarian cancer Breast cancer Colorectal cancer Social History Smoking Status: Former smoker Tobacco Type: Cigarettes Age Started Using Tobacco: 22; Age Quit Using Tobacco: 24; Second Hand Exposure: No; Hx Alcohol Use: No Hx Substance Use: No Preferred Language: [place] Communication Ability: Effective Visual Impairment: No Limitations Hearing Ability: Normal Dynamics Ax Developer Required: No Beliefs That Will Affect Care: None marital status: Current Living Situation: Alone current occupational status: retired How many Children do You have: 3 Feels Safe at Home: Yes Childhood Exposure to Second-Hand Smoke: No caffeine: No during the past year weight has: remained stable Dental Care, Regularly: Yes Physical Activity Frequency: Daily Seatbelt Use: always Sunscreen Use: Yes Assistive Devices: Cane and Glasses Review of Systems Review of Systems: All systems reviewed & are unremarkable except as noted in HPI & below Constitutional: no fever, no chills and no sweats Respiratory: no cough and no dyspnea Cardiovascular: no chest pain, no dyspnea and no orthopnea Gastrointestinal: no abdominal pain, no nausea and no vomiting Musculoskeletal: as per Subjective / HPI Physical Exam Physical Exam: HT: 5ft 5.5in WT: 106.6kg Constitutional: WD/WN, vitals as above no acute distress Respiratory: normal respiratory effort, lungs clear to auscultation no respiratory distress, no labored breathing and does not use accessory muscles Cardiovascular: RRR, no murmur, no edema Gastrointestinal (Abdomen): normal bowel sounds, soft, nontender, no hepatosplenomegaly Musculoskeletal: Knee: + knee abnormal to inspection (right knee: ), + effusion (+1 effusion), + limited ROM of knee (ROM 0/3/110), + knee ROM with crepitation, + joint line tenderness (medial joint line) and + Glo's sign positive; no deformity, no skin erythema, no ecchymosis, no valgus laxity, no varus laxity, anterior drawer test negative, Manju's sign negative and pivot shift test negative Results & Data Results & Data ([facility]) Diagnostic Findings Right Knee X-ray: Right knee series showing advanced degenerative changes to the right knee, narrowing of the medial compartment and patello-femoral joint with patellar spurring noted, findings showing joint space narrowing of the medial compartment and patello-femoral joint, osteophyte formation and subchondral sclerosis noted. overall varus alignment. no acute bony pathology noted.
[~2022-06-09 06:21] MED LIST changes: +ACETAMINOPHEN 500 MG TAB PO SCH; +ALLERGY Noted to ORDERED Medication SCH; -CEFAZOLIN 2000MG 2,000 MG/15 ML SYR IV SCH; +CeleBREX 200 MG CAP PO SCH; +FAMOTIDINE 20 MG TAB PO SCH; +GABAPENTIN 300 MG CAP PO SCH; -LR 15ML/HR IV SCH; +LR 500ML BOLUS, THEN 15ML/HR IV SCH; +METOCLOPRAMIDE HCL 10 MG TABLET PO SCH; -ROPIVACAINE 0.5% 5 MG/ML 30 ML VIAL ONE; +ROPIVACAINE 0.5% HCL/PF 150 MG, BUPIVACAINE 0.75% MPF 20 ML, EPINEPHrine 30MG/30ML (OR ... INFIL SCH; +TRANEXAMIC ACID 1,000 MG **IV Pre-op IV SCH; +ceFAZolin 2000MG 2,000 MG/15 ML SYR IV SCH; +dexAMETHasone 4 MG TAB PO SCH
[2022-06-09] MEDS ORDERED: BUPIVACAINE 0.25% 30 ML VIAL ONE (06:28)
[2022-06-09] MEDS ORDERED: BUPIVACAINE 0.5 % 5 MG/1 ML PF 10ML VIAL ONE (06:28)
[2022-06-09] MEDS ORDERED: MIDAZOLAM HCL 1 MG/ML 2ML VIAL ONE (07:11)
[2022-06-09] MEDS ORDERED: DEXAMETHASONE SOD INJ 4 MG/ML VIAL ONE ×2 (07:11→08:10)
[2022-06-09] MEDS ORDERED: fentaNYL citrate 100 MCG/2 ML VIAL ONE (07:11)
[2022-06-09] MEDS ORDERED: LIDOCAINE 2%/EPINEPHRINE 1:200,000 20 ML SDV ONE (07:11)
[2022-06-09] MEDS ORDERED: PROPOFOL IV EMULSION 10 MG/ML 20 ML VIAL IV ONE ×2 (07:11→09:43)
[2022-06-09] MEDS ORDERED: ATROPINE SULFATE 0.1 MG/ML 10ML SYR IV PRN (07:16)
[2022-06-09] MEDS ORDERED: ePHEDrine sulfate 50 MG/ML AMP IV PRN (07:16)
[2022-06-09] MEDS ORDERED: Nursing to Pharmacy Communication SCH (07:30)
--- NOTE | 2022-06-09 08:30 | History & Physical Bridge Note ---
Date of Service June 09, 2022 History & Physical Bridge Note I have examined the patient, reviewed the History & Physical and in the interval since the performance of the History & Physical I have noted the following changes of clinical significance: no changes noted
[2022-06-09 08:31] LABS: INR 1.1 (0.9-1.1); Partial Thromboplastin Time 28.5 Seconds (21.0-31.0); Prothrombin Time 11.8 Seconds (9.0-12.0)
[2022-06-09] MEDS ORDERED: KETAMINE 50 MG/5 ML SYRINGE ONE (09:02)
--- NOTE | 2022-06-09 09:59 | Operative Report ---
Post Operative Report Pre & Post Diagnosis Operation Date: 06/09/22 08:10 Pre-Op Diagnosis: Right Knee Osteoarthritis Post-Op Diagnosis: Right Knee Osteoarthritis I identified the patient and participated in the time-out.: Yes Procedure Operation Date: 06/09/22 08:10 Actual Procedures p Right Total Knee Arthroplasty(Right) utilizing [employer] journey 2 patient matched total knee arthroplasty/femur 6 right tibia 5 right Poly 12 right patella 35 sesar Stroud DO Surgeon Syed Stroud DO Kindergarten Classroom Teacher Renny GAMA Estimated Blood Loss 10 Findings Consistent with Post-Op Diagnosis Patient presents with severe end-stage tricompartmental degenerative joint disease varus alignment subchondral sclerosis marginal osteophytes moderate to large effusion nonresponse to conservative management Specimens Bone and cartilage Drains Medium bore Hemovac Anesthesia Type MAC Spinal Regional Complications none Disposition Accompanied Patient To Recovery: No Disposition: Recovery Room Indications Patient presents with severe end-stage DJD right knee nonresponse to conservative management patient's failed attempts at conservative management getting physical therapy anti-inflammatories relative rest activity modification corticosteroid injection viscosupplementation the above intraoperative findings were noted Description of Procedure After proper prepping and draping of the Right lower extremity anterior midline incision was made over the region of the extensor extensor mechanism after meticulous hemostasis was obtained and maintained in subcutaneous tissues a medial parapatellar incision was made The patella was subluxed lateralward the medial lateral gutter were cleaned from any hypertrophic synovitis and scar tissue of the distal femoral block was placed and the distal femoral osteotomy cut was made subsequently the chamfers anterior and posterior osteotomy cuts were made utilizing the 4-in-1 block the tibia was subsequently subluxed anteriorward medial and ateral meniscal remnants were excised in their entirety remnants of the anterior and posterior cruciate ligaments were excised in their entirety excellent exposure of the proximal tibia was obtained the tibial osteotomy guide was placed on the proximal tibial osteotomy cut was made once again the knee was irrigated with copious amounts of sterile saline solution the patella was subsequently everted lateralward thickened scar tissue around the patella was removed the patella was subsequently cut utilizing a freehand technique and was drilled prepared for final preparation and placement of patella socially flexion-extension gaps were checked and the equal and symmetric trials were placed to the appropriate femoral and tibial trials with poly-spacer being placed for equal flexion and extension gaps and full range of motion including extension to 0 and flexion to 140 the trial components after having been taken to recovery range of motion was subsequently removed meticulous hemostasis was obtained and maintained subsequently a knee block injection of joint cocktail including ropivacaine 0.5% 150 mg. Bupivacaine 0.5% epinephrine 1-200,030 mL's toradol 30 mg dexamethasone 4 mg ketamine 10 mg clonidine 100 micrograms normal saline solution 30 mg was infiltrated into the soft tissues of the posterior knee medial lateral gutters and periosteal synovium special attention was paid to protect neurovascular structures at all times subsequently trial components having been removed the knee was irrigated with sterile saline solution. debris was removed the proximal tibia was subsequently prepared and was made ready for the placement of the tibial component tibial component was a lso cemented and tamped into position the femoral component was subsequently placed and cemented in the position the patellar component was subsequently cemented in position because hemostasis once again obtained and maintained wound having been thoroughly irrigated with debridement and debridement lavage was performed as well as a medial parapatellar incision closed with #1 Vicryl in interrupted fashion subcutaneous was closed with #2 Vicryl skin was closed with skin clips. PA-C was necessary for prepping and drapping as well as wound closure of deep fascia Sub cutaneous tissue and skin and was necessary for the case. A sterile compressive dressing was placed patient was taken to recovery in stable condition of report dictated by Maximus I attest to the content of the Intraoperative Record and any orders documented therein. Any exceptions are noted below.Due to the complex nature of the procedure, the entire surgery was performed with the operational assistance of Renny GAMA. The credit assistant, under direct supervision, was involved in the actual performance of all aspects of the surgical procedure including hemostasis, tissue retraction and incision, instrument management, patient positioning, and wound closure. I attest to the content of the Intraoperative Record and any orders documented therein. Any exceptions are noted below.
[2022-06-09] MEDS: TRANEXAMIC ACID 1,000 MG **IV Intra-op IV SCH ×2 (10:06→12:48)
--- NOTE | 2022-06-09 11:36 | XRay Report ---
TWO VIEWS RIGHT KNEE CLINICAL HISTORY: Postoperative examination. FINDINGS: AP and crosstable lateral portable views of the right knee are obtained. A right knee arthr oplasty is in near anatomic alignment. There has been undersurface remodeling of the patella. No acut e fracture is seen. There are expected postoperative changes around the knee including a surgical reina in, soft tissue edema, and subcutaneous gas. IMPRESSION: Expected postoperative changes status post right knee arthroplasty. No acute fracture is seen. ACT 112: Negative or not required by law. Electronically signed by: Jonny Cordoba M.D. 06/09/2022 11:34 AM
[2022-06-09] MEDS ORDERED: MAGNESIUM HYDROXIDE SUSP 30 ML UDC PO PRN (12:08)
[2022-06-09] MEDS ORDERED: ONDANSETRON INJ 2 MG/ML 2 ML VIAL IV PRN (12:08)
[2022-06-09] MEDS ORDERED: diphenhydrAMINE 50 MG/ML VIAL IV PRN (12:08)
[2022-06-09] MEDS ORDERED: traMADol HCL 50 MG TABLET PO PRN (12:08)
[2022-06-09] MEDS ORDERED: HYDROmorphone INJ 0.5 MG/0.5 ML SYR IV PRN (12:08)
[2022-06-09] MEDS ORDERED: IPRATROPIUM BROMIDE HFA INHALER INH PRN (12:08)
[2022-06-09] MEDS ORDERED: bisacodyL 10 MG SUPP PR PRN (12:08)
[2022-06-09] MEDS ORDERED: NALOXONE HCL 0.4 MG/1 ML VIAL/CARP IV PRN (12:08)
[2022-06-09] MEDS ORDERED: KETOROLAC 30 MG/ML VIAL ONE (12:16)
[2022-06-09] MEDS: KETOROLAC TROMETHAMINE 15 MG/ML VIAL IV SCH ×2 (12:18→17:47)
[2022-06-09] MEDS: SODIUM CHLORIDE 0.9% 1000ML 1,000 ML IV SCH ×2 (12:19→23:23)
[2022-06-09] MEDS: EZETIMIBE 10 MG TABLET PO SCH (12:50)
[2022-06-09] MEDS ORDERED: oxyCODONE HCL IR 5 MG TAB (IMMEDIATE RELEASE) PO PRN (14:21)
[2022-06-09] MEDS: ACETAMINOPHEN 500 MG TAB PO SCH ×2 (14:34→21:57)
--- NOTE | 2022-06-09 14:53 | Hospitalist Consultation ---
Date of Consultation June 09, 2022 Assessment & Plan (1) Status post total right knee replacement: 76-year-old male who is status post RIGHT TKA with a complicated past medical history including hypertension, dyslipidemia, chronic anticoagulation on Xarelto secondary to prior history of pulmonary embolism, complex sleep apnea syndrome, asthma. Hospitalist consulted for medical management of patient's underlying medical conditions. * Patient appears to be doing well clinically status post surgical intervention. * Aggressive pain management per surgical services. * Monitor drains for significant bloody output in the setting of a chronically anticoagulated patient. Patient did hold on his Xarelto 3 days prior to surgical intervention. * Will defer to surgical services for reinstitution of anticoagulation. (2) Hypothyroidism: * Continue home dose of Levothyroxine. (3) Hypertension: * Well managed at home. * Continue Metoprolol, (4) Asthma: * Well controlled. * Currently uses Advair BID. * Only uses rescue inhaler 4-5 times/yr. (5) Chronic anticoagulation: * Patient to Xarelto tomorrow per orders. * Will defer to surgical services, but agree with aggressive anticoagulation in the patient w/ a h/o unprovoked DVT/PE. (6) Complex sleep apnea syndrome: * Patient can use his home CPAP. * RT to evaluate and apply home CPAP settings if needed. Supervising Physician Co-Signing Physician Notes Patient seen and examined, chart reviewed, case discussed with Ras Singh PA-C and I agree with the assessment and plan as above except as otherwise noted Labs and images reviewed 76-year-old male with a history of hypertension, hyperlipidemia, hypothyroidism, asthma, DVT, PE on Xarelto, and sleep apnea s/p TKA. We are consulted for postoperative medication management. Urinary tube doing well postop with some right knee discomfort, but neurovascularly intact. Noted recommendations above. Continue Synthroid. Continue metoprolol. Continue Advair. Resume Xarelto tomorrow. CPAP nightly. History of Present Illness Reason for Consultation: Medical Management Requesting Physician: Renny Blanca PA-C Attending Physician: Syed Stroud DO History of Present Illness Patient is a pleasant 76-year-old male with significant past medical history of hypertension, hyperlipidemia, hypothyroidism, asthma, DVT, PE anticoagulated on lifelong Xarelto, and complex sleep apnea syndrome. Patient underwent TKA of the RIGHT knee today in the setting of chronic arthritis and ongoing pain. Patient did well intraoperatively with an EBL of 10 mL. Hospitalist group was consulted for medical management given the patient's multiple complex comorbidities. Upon evaluation at bedside, the patient is awake, alert, and oriented. He complains of some developing discomfort to the anterior surface of the RIGHT knee. Otherwise, he reports feeling well. He states that he and his both follow with their primary care providers and specialists regularly. He reports that he had seen cardiology as well as hematology/oncology prior to his surgical intervention for clearance. He had been off of his Xarelto for 3 days prior to surgery. Patient is currently receiving Tylenol for his discomfort. He does not like to take narcotics if possible. Patient denies any complaints of curre nt headaches, dizziness, lightheadedness, chest pain, palpitations, pleuritic pain, nausea, vomiting, abdominal pain, or numbness/weakness to the extremities. Allergies Allergy/AdvReac Type Severity Reaction Status Date / Time Sulfa (Sulfonamide Allergy Severe Anaphylaxis Verified 06/09/22 06:39 Antibiotics) A CHILD trimethoprim Allergy Severe Anaphylaxis- Verified 06/09/22 06:39 A CHILD adhesive Allergy Intermediate TAPE-SKIN Verified 06/09/22 06:39 IRRITATION clonidine Allergy Intermediate EDEMA/HIVES Verified 06/09/22 06:39 meperidine Allergy Intermediate SWELLING Verified 06/09/22 06:39 ondansetron Allergy Intermediate swelling Verified 06/09/22 06:39 codeine Allergy Mild RASH/Itchin Verified 06/09/22 06:39 g zoster vaccine live Allergy Unknown Unknown Verified 06/09/22 06:39 Home Medications Medication Instructions Recorded Confirmed Type cyanocobalamin (vitamin B-12) 1,000 mcg PO QDL 02/15/19 06/09/22 History 1,000 mcg tablet (Vitamin B-12) ipratropium bromide 17 1 puff inhalation Q6H PRN 11/26/19 06/09/22 Rx mcg/actuation HFA aerosol inhaler Shortness Of Breath Or Wheezing (Atrovent HFA) #12.9 grams ferrous sulfate 325 mg (65 mg 325 mg PO Q OTHER DAY 08/19/20 06/09/22 History iron) tablet acetaminophen 650 mg 650 mg PO QID 12/19/20 06/09/22 History tablet,extended release diclofenac sodium 1 % topical gel 2 g topical QID 12/19/20 06/09/22 History [id number] tablet 1 tab PO QDL 12/19/20 06/09/22 History varicella-zoster glycoE [id number] 0.5 ml IM .COMPLEX #1 ea 11/30/21 05/11/22 Rx adj(PF) 50 mcg/0.5 mL IM susp, kit (Shingrix (PF)) fluticasone 250 mcg-salmeterol 50 1 inh inhalation BID #60 ea 03/02/22 06/09/22 Rx mcg/dose blistr powdr for inhalation (Advair Diskus) ezetimibe 10 mg tablet (Zetia) 10 mg PO QDL 04/22/22 06/09/22 History famotidine 40 mg tablet 40 mg PO QAM 04/22/22 06/09/22 History gabapentin 300 mg capsule 300 mg PO BID 04/22/22 06/09/22 History gabapentin 300 mg capsule 600 mg PO HS 04/22/22 06/09/22 History levothyroxine 150 mcg capsule 150 mcg PO QAM 04/22/22 06/09/22 History lisinopril 20 mg tablet 20 mg PO HS 04/22/22 06/09/22 History metoprolol succinate 100 mg 100 mg PO BID 04/22/22 06/09/22 History tablet,extended release 24 hr pantoprazole 40 mg tablet,delayed 40 mg PO QAM 04/22/22 06/09/22 History release tramadol 50 mg tablet 50 mg PO Q6H PRN pain #120 tabs 05/11/22 06/09/22 Rx rivaroxaban 20 mg tablet (Xarelto) 20 mg PO QAM #30 tabs 06/07/22 Rx Patient History Medical History (Updated 06/09/22 @ 14:51 by Ras Singh PA-C) Anemia Asthma Stable Bilateral pulmonary embolism 08/2018 (unknown etiology) BPH (benign prostatic hyperplasia) Cervicalgia Chronic lower back pain Degenerative disc disease Dysmetabolic syndrome X GERD (gastroesophageal reflux disease) History of benign thyroid tumor History of DVT (deep vein thrombosis) 12/2017 LLE - treated w/ AC x 6 months (unknown etiology) 08/2017 RLE after stopping xarelto History of MRSA infection MRSA in right knee treated in 2001 (Anna at surgeon's office made aware) History of pulmonary embolism Bilateral in 08/2018, unknown etiology. History of squamous cell carcinoma Hyperlipidemia Hypertension Hypothyroidism Kidney stones Osteoarthritis Prediabetes diet controlled Spinal stenosis Surgical History (Updated 06/09/22 @ 14:54 by Ras Singh PA-C) History of arthroscopy of left knee History of arthroscopy of right knee History of colonoscopy Colonoscopy/EGD (for anemia evaluation- 04/29/22): MAC at [facility] History of esophagogastroduodenoscopy (EGD) History of fusion of cervical spine restricted ROM from side to side per pt History of hand surgery Left History of hernia repair Left abdominal History of shoulder surgery Left History of shoulder surgery Right x3 (+ hardware) History of squamous cell carcinoma excision History of surgery Left biceps tendon repair History of total thyroidectomy Nausea and vomiting after administration of anesthetic agent S/P rotator cuff repair Family History Brother Family history of diabetes mellitus Sister Family history of diabetes mellitus Grandmother (Maternal) Myocardial infarction Father Prostate cancer Mother Family history of reaction to anesthesia nausea/vomiting Brother Family history of diabetes mellitus Sister Family history of diabetes mellitus Denies family history of Ovarian cancer Breast cancer Colorectal cancer Social History Smoking Status: Former smoker Tobacco Type: Cigarettes Age Started Using Tobacco: 22; Age Quit Using Tobacco: 24; Smoking End Date: Quit 54 years ago; Second Hand Exposure: No; Do You Dip or Chew Tobacco: No; Tobacco Cessation Education Requested by Patient: No Hx Alcohol Use: No Hx Substance Use: No Preferred Language: Maldivian Communication Ability: Effective Visual Impairment: No Limitations Hearing Ability: Normal Provider Engagement Executive Required: No Beliefs That Will Affect Care: None marital status: Current Living Situation: Alone current occupational status: retired How many Children do You have: 3 Other Information That Helps Us Care for You: No Feels Safe at Home: Yes Safety Concerns: Feels Safe At This Time Childhood Exposure to Second-Hand Smoke: No caffeine: No during the past year weight has: remained stable Dental Care, Regularly: Yes Physical Activity Frequency: Daily Seatbelt Use: always Sunscreen Use: Yes Assistive Devices: Cane and Glasses Assistive Devices Comment: partial Review of Systems Review of Systems: A complete 10 point review of systems was reviewed with the patient with pertinent positives and negatives as per history of present illness. All else were negative. Physical Exam Physical Exam: VITAL SIGNS - Vital signs and nursing notes were reviewed. GENERAL - 76-year-old male appearing his stated age who is in no acute distress. Communicates well with provider and answers questions appropriately. SKIN - Postoperative dressing to the RLE clean, dry, and intact. HEAD - NC/AT. NECK - Neck with FROM. LUNGS - Chest wall symmetric without accessory muscle use, intercostals retractions, or central cyanosis. Normal vesicular breath sounds CTA B/L. No wheezes, rales, or rhonchi appreciated. CARDIAC - RRR with S1/S2. No murmur, rubs, or gallops appreciated. ABDOMEN - Abdominal contour obese without pulsations or visible masses. BS normoactive all four quadrants. No tenderness, palpable masses, hepatosplenomegaly, or ascites noted. EXTREMITIES - Bulky dressing intact to the RLE. Drain in place with bloody drainage noted DP pulses equal bilaterally. NEUROLOGIC - Cranial nerves II through XII grossly intact. Sensory intact to light touch throughout. PSYCH - A&Ox3 and cooperates fully with examiner. Pt is very pleasant and interacts well with examiner. Results & Data Results & Data ([facility]) Vital Signs (Past 12 Hours) Vital Signs Temp Pulse Pulse Resp BP BP Pulse Ox 06/09/22 14:38 36.8 C 76 18 152/76 H 98 06/09/22 13:00 64 14 170/78 H 95 06/09/22 12:20 57 L 12 139/79 97 06/09/22 12:05 55 L 12 147/82 H 95 06/09/22 11:50 60 13 129/71 95 06/09/22 11:35 58 L 13 146/75 H 96 06/09/22 11:20 36.9 C 58 L 17 160/76 H 97 06/09/22 11:10 57 L 11 L 157/75 H 100 06/09/22 11:00 59 L 11 L 168/93 H 100 06/09/22 10:50 63 15 158/93 H 100 06/09/22 10:43 36.4 C L 64 16 154/81 H 98 06/09/22 06:45 06/09/22 06:45 37.3 C 68 20 220/99 H 97 O2 Del Method O2 Flow Rate 06/09/22 14:38 Room Air 06/09/22 13:00 Room Air 06/09/22 12:20 Room Air 06/09/22 12:05 Room Air 06/09/22 11:50 Room Air 06/09/22 11:35 Room Air 06/09/22 11:20 Room Air 06/09/22 11:10 Room Air 06/09/22 11:00 Oxymask 4 06/09/22 10:50 Oxymask 4 06/09/22 10:43 Oxymask 6 06/09/22 06:45 Room Air 06/09/22 06:45 Room Air PG Care Time/CCT Total # of Minutes Spent Total Time Spent with Patient: Total time spent is greater than 50% in coordination of care (as documented) at patient's floor/unit and/or counseling patient: Coding Level of Care Code INP/OBS CONSULT LVL 3, 45 MIN Diagnoses Status post total right knee replacement Z96.651 Hypothyroidism E03.9 Hypertension I10 Asthma J45.909 Chronic anticoagulation Z79.01 Complex sleep apnea syndrome G47.31 Time Spent (min) 48
[2022-06-09] MEDS: ceFAZolin 2000MG 2,000 MG/15 ML SYR IV SCH (16:40)
--- NOTE | 2022-06-09 16:55 | Anesthesiology Progress Note ---
Date of Service June 09, 2022 Anesthesia Post Procedure Vital Signs Vital Signs: Temp Pulse Pulse Resp BP BP Pulse Ox 06/09/22 14:38 36.8 C 76 18 152/76 H 98 06/09/22 13:00 64 14 170/78 H 95 06/09/22 12:20 57 L 12 139/79 97 06/09/22 12:05 55 L 12 147/82 H 95 06/09/22 11:50 60 13 129/71 95 06/09/22 11:35 58 L 13 146/75 H 96 06/09/22 11:20 36.9 C 58 L 17 160/76 H 97 06/09/22 11:10 57 L 11 L 157/75 H 100 06/09/22 11:00 59 L 11 L 168/93 H 100 06/09/22 10:50 63 15 158/93 H 100 06/09/22 10:43 36.4 C L 64 16 154/81 H 98 06/09/22 06:45 06/09/22 06:45 37.3 C 68 20 220/99 H 97 O2 Del Method O2 Flow Rate 06/09/22 14:38 Room Air 06/09/22 13:00 Room Air 06/09/22 12:20 Room Air 06/09/22 12:05 Room Air 06/09/22 11:50 Room Air 06/09/22 11:35 Room Air 06/09/22 11:20 Room Air 06/09/22 11:10 Room Air 06/09/22 11:00 Oxymask 4 06/09/22 10:50 Oxymask 4 06/09/22 10:43 Oxymask 6 06/09/22 06:45 Room Air 06/09/22 06:45 Room Air Pain Intensity Right Knee: Pain Intensity: 4 Transfer of Care Handoff Completed per policy Notes Mental Status: alert / awake / arousable and participated in evaluation Patient Amnestic to Procedure: Yes Nausea / Vomiting: adequately controlled Pain: adequately controlled Airway Patency, RR, SpO2: stable & adequate BP & HR: stable & adequate Hydration State: stable & adequate Neuraxial Anesthesia: was administered and sensory block is resolving Anesthetic Complications: no major complications apparent and Pt Satisfied with anesthetic care
[2022-06-09] MEDS: METOPROLOL SUCC 50MG EXT REL TAB PO SCH (20:21)
[2022-06-09] MEDS: GABAPENTIN 300 MG CAP PO SCH (20:21)
[2022-06-09] MEDS: DOCUSATE SODIUM 100 MG CAP PO SCH (20:26)
[2022-06-09] MEDS ORDERED: GABAPENTIN 300 MG CAP PO SCH (21:00)
[2022-06-09] MEDS ORDERED: SENNA 8.6 MG TAB PO SCH (21:00)
[2022-06-09] MEDS ORDERED: lisinopril 20 MG TAB PO SCH (21:00)
[2022-06-10] MEDS: ceFAZolin 2000MG 2,000 MG/15 ML SYR IV SCH (01:33)
[2022-06-10] MEDS: ACETAMINOPHEN 500 MG TAB PO SCH ×2 (05:44→13:40)
[2022-06-10] MEDS ORDERED: LEVOTHYROXINE SODIUM 150 MCG TABLET PO SCH (06:30)
[2022-06-10 06:48] LABS: Hematocrit (blood only) 38.4 % (42.0-52.0); Hemoglobin 12.7 g/dl (14.0-18.0); Mean Corpuscular Hemoglobin 30.4 pg (25.0-34.0); Mean Corpuscular Hgb Conc 33.1 g/dL (32.0-36.0); Mean Corpuscular Volume 91.9 fL (80.0-100.0); Platelet Count 216 K/uL (130-400); RDW Coefficient of Variation 13.6 % (11.5-14.5); RDW Standard Deviation 46.5 fL (36.4-46.3); Red Blood Count 4.18 M/uL (4.70-6.10); White Blood Count 16.75 K/ul (4.8-10.8)
[2022-06-10] MEDS: METOPROLOL SUCC 50MG EXT REL TAB PO SCH (08:02)
[2022-06-10] MEDS: GABAPENTIN 300 MG CAP PO SCH (08:03)
[2022-06-10] MEDS: DOCUSATE SODIUM 100 MG CAP PO SCH (08:04)
[2022-06-10] MEDS ORDERED: traMADol HCL 50 MG TABLET PO PRN ×2 (08:19→08:28)
[2022-06-10 08:23] LABS: BUN Creatinine Ratio 21.3 (10-20); Calcium 8.4 mg/dl (8.5-10.1); Creatinine Clr Calc Pharmacy 92.1 ml/min; Potassium 3.8 mmol/L (3.5-5.1)
[2022-06-10] MEDS ORDERED: oxyCODONE HCL IR 5 MG TAB (IMMEDIATE RELEASE) PO PRN (08:29)
--- NOTE | 2022-06-10 08:33 | Orthopedic Progress Note ---
Date of Service June 10, 2022 Assessment & Plan (1) Arthritis of right knee: Plan: Postop day 1 status post right total knee arthroplasty. PT/OT protocols. Weightbearing started. DVT prophylaxis-Xarelto daily, SCDs, NAEEM hays. Pain management as written. Right lower extremity calf pain. Pinpoint tenderness centrally in the calf. Patient has a history of DVT in the past I believe around 2019. We will plan to get an ultrasound of his right lower extremity today to rule out DVT. If negative continue PT and OT protocols. Discharge planning-patient planning for outpatient PT upon discharge. Admission and Anticipated Discharge Date Admission Date: June 09, 2022 Subjective Postop day 1 Patient sitting up in bed awake and alert. Mild pain in the right knee this morning. Denies shortness of breath, chest pain, lightheadedness. Physical Exam Physical Exam: Dressings are clean, dry, and intact. Calves are soft. He has some mild tenderness in the mid calf. Pain appears to be mild. Homans exam is negative. There is no overt swelling of the ankle or foot. Neuropathy noted of the feet. Patient has good dorsiflexion and plantarflexion of the right foot. Results & Data ([facility]) Vital Signs (Past 12 Hours) Vital Signs Temp Pulse Resp BP Pulse Ox O2 Del Method 06/10/22 07:31 36.7 C 79 17 128/79 97 Room Air 06/10/22 03:15 36.6 C 69 18 109/63 95 Room Air 06/09/22 22:29 36.9 C 72 18 146/65 H 94 Room Air
[2022-06-10] MEDS ORDERED: MULTIVITAMIN TAB PO SCH (09:00)
[2022-06-10] MEDS ORDERED: FLUTICASONE/VILANTEROL 200/25MCG 14 PUFFS/INHALER INH SCH (09:00)
[2022-06-10] MEDS ORDERED: PANTOprazole 40 MG TAB PO SCH (09:00)
--- NOTE | 2022-06-10 11:06 | Ultrasound Report ---
RIGHT LOWER EXTREMITY VENOUS DOPPLER HISTORY: Right calf pain. H/O DVT in past. COMPARISON STUDY: None. FINDINGS: The right common femoral and superficial femoral veins are patent. Small amount of peripher al nonocclusive thrombus within the right popliteal vein. This is likely chronic. The calf veins are not well visualized. The anterior tibial and posterior tibial veins appear patent. Only one of 2 rosey myrna veins is identified and appears to be thrombosed. IMPRESSION: 1. Age-indeterminate thrombus identified within one of 2 right peroneal veins. 2. 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 ACT 112: Negative or not required by law. Electronically signed by: Ja Mead M.D. 06/10/2022 11:05 AM
[2022-06-10] MEDS: EZETIMIBE 10 MG TABLET PO SCH (11:51)
[2022-06-10] MEDS ORDERED: RIVAROXABAN 20 MG TAB PO SCH (16:30)
--- NOTE | 2022-06-14 10:44 | Discharge Summary ---
Date of Service June 14, 2022 Admission HPI Per Admitting Provider Adamaris is a pleasant 76-year-old male who presented for preop evaluation prior to his right total knee replacement. He has been having pain in his knee for many years now which is gradually worsened and is now affecting his daily activities including walking standing using stairs. He is tried and failed prior corticosteroid injections as well as viscosupplementation without relief. He is tried Tylenol, he is unable to take anti-inflammatories due to his anticoagulants. Rates his current pain as a 7 out of 10. Otherwise has failed conservative measures and would like to proceed with a right total knee repla cement Admission Exam Per Admitting Provider Physical Exam: HT: 5ft 5.5in WT: 106.6kg Constitutional: WD/WN, vitals as above no acute distress Respiratory: normal respiratory effort, lungs clear to auscultation no respiratory distress, no labored breathing and does not use accessory muscles Cardiovascular: RRR, no murmur, no edema Gastrointestinal (Abdomen): normal bowel sounds, soft, nontender, no hepatosplenomegaly Musculoskeletal: Knee: + knee abnormal to inspection (right knee: ), + effusion (+1 effusion), + limited ROM of knee (ROM 0/3/110), + knee ROM with crepitation, + joint line tenderness (medial joint line) and + Glo's sign positive; no deformity, no skin erythema, no ecchymosis, no valgus laxity, no varus laxity, anterior drawer test negative, Manju's sign negative and pivot shift test negative Principal Diagnosis Right Knee Osteoarthritis Discharge Data Allergies Allergy/AdvReac Type Severity Reaction Status Date / Time Sulfa (Sulfonamide Allergy Severe Anaphylaxis Verified 06/09/22 06:39 Antibiotics) A CHILD trimethoprim Allergy Severe Anaphylaxis- Verified 06/09/22 06:39 A CHILD adhesive Allergy Intermediate TAPE-SKIN Verified 06/09/22 06:39 IRRITATION clonidine Allergy Intermediate EDEMA/HIVES Verified 06/09/22 06:39 meperidine Allergy Intermediate SWELLING Verified 06/09/22 06:39 ondansetron Allergy Intermediate swelling Verified 06/09/22 06:39 codeine Allergy Mild RASH/Itchin Verified 06/09/22 06:39 g zoster vaccine live Allergy Unknown Unknown Verified 06/09/22 06:39 Consultations 06/09/22 12:08 Consult Hospitalist Routine Procedures Performed Operation Date: 06/09/22 08:10 Actual Procedures p Right Total Knee Arthroplasty(Right) - Syed Stroud DO Ordered Studies 06/09/22 05:00 US - OR guided needle placemen Routine 06/10/22 08:58 US venous doppler LE RT Routine Hospital Course (1) Arthritis of right knee: Patient:ADAMARIS HOLCOMB Jr Admit Date:06/09/22 MR#:[id number] Att Phy:Syed Stroud,D.OMelly Acct ID:[id number] Bree Phy:Jaguar Renteria DO Date:1945 Fam Phy: Age:76 Location:3E Sex:M Room/Bed:[facility] cc: ~ *NOTICE TO RECEIVING DEMOCRAT/AGENCY This information is strictly Confidential and protected under [place] law. [place] law prohibits you from making any further disclosure of this information unless further disclosure is expressly permitted by the written consent of the person to whom it pertains or is authorized by law. A general authorization for the release of medical or other information is not sufficient for this purpose. Hospital accepts no responsibility if the information is made available to any other person, INCLUDING THE PATIENT. ADDENDUM 06/10/22ddendum June 10, 2022 15:51 Doppler US results :1. Age-indeterminate thrombus identified within one of 2 right peroneal veins. 2. 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 Pt progressing with PT. Dr. Tobias has seen pt (per nursing) and pt is ok for discharge. Continue Xarelto as per his normal routine. Outpt PT planned. Addendum Signed By: <Electronically signed by Renny Blanca PA-C> 06/10/221557 Addendum Cosigned By: <Electronically signed by Raciel Hartmann M.D.> 06/10/221807 Created: 06/10/2207/01/1557 Date of Service June 10, 2022 Assessment & Plan (1) Arthritis of right knee: Plan: Postop day 1 status post right total knee arthroplasty. PT/OT protocols. Weightbearing started. DVT prophylaxis-Xarelto daily, SCDs, NAEEM hays. Pain management as written. Right lower extremity calf pain. Pinpoint tenderness centrally in the calf. Patient has a history of DVT in the past I believe around 2019. We will plan to get an ultrasound of his right lower extremity today to rule out DVT. If negative continue PT and OT protocols. Discharge planning-patient planning for outpatient PT upon discharge. Admission and Anticipated Discharge Date Admission Date: June 09, 2022 Subjective Postop day 1 Patient sitting up in bed awake and alert. Mild pain in the right knee this morning. Denies shortness of breath, chest pain, lightheadedness. Physical Exam Physical Exam: Dressings are clean, dry, and intact. Calves are soft. He has some mild tenderness in the mid calf. Pain appears to be mild. Homans exam is negative. There is no overt swelling of the ankle or foot. Neuropathy noted of the feet. Patient has good dorsiflexion and plantarflexion of the right foot. Results & Data ([facility]) Vital Signs (Past 12 Hours) Vital Signs Temp Pulse Resp BP Pulse Ox O2 Del Method 06/10/22 07:31 36.7 C 79 17 128/79 97 Room Air 06/10/22 03:15 36.6 C 69 18 109/63 95 Room Air 06/09/22 22:29 36.9 C 72 18 146/65 H 94 Room Air Signed By: <Electronically signed by Renny Blanca PA-C> 06/10/22 0942 Total Time Total Time Spent Total Time Spent (In Minutes): 5 Discharge Plan Discharge Items Patient Disposition: Home - Self-Care Reason For Visit: RIGHT TKA Discharge Diagnosis: Right knee osteoarthritis Activity: Per Instructions section Weightbearing: Right weightbearing Weightbearing Comment: As tolerated with walker Non-emergency contact: Surgeon Call non-emergency contact if: you have any medication questions, your pain is not controlled, your temperature is above 101.5, your wound has increased redness and your wound has increased drainage Follow-up/Referrals: Jaguar Renteria DO [Primary Care Provider] - Syed Stroud DO [Surgeon] - (Follow-up with Dr. Stroud or his PA in 2 weeks from the date of your surgery for your first postoperative visit.) Addtl Attending Provider Instructions: ACTIVITY RECOMMENDATIONS: SELF CARE INSTRUCTIONS AFTER TOTAL KNEE REPLACEMENT A. You may need to continue a physical therapy program after discharge from the hospital. There are several options available to you. Your doctor will assist you in selecting the best one for you. 1. An out-patient facility 2 to 3 times a week for therapy or home therapy. 2. Continue working on all exercises taught to you in the hospital. Your goals should be to increase bending of your knee to 90 degrees and beyond and to fully straighten your knee. B. You may progress at your own pace from walking with a walker or crutches to a cane; then to no assistive devices. C. Make walking a part of your daily routine. Be up as much as comfortable with rest periods throughout the day. Rest with leg elevation is very important. Use the ice wrap frequently for the first 3-4 weeks. D. There are no restrictions on activities. You may ride in a car, shop, participate in dictating transcribing machine servicer and all social activities. E. Wear the long elastic stockings (NAEEM hose) 20 hours a day for 2 weeks after surgery. They can be removed several times a day for laundering and for a bath. F. You may shower, no tub baths until cleared by your doctor. SPECIAL CARE INSTRUCTIONS: VERY IMPORTANT TO READ AND REVIEW A. There are a few signs you need to watch for after you are home. Call [facility] if you notice any of the followin. Increased severe knee pain. Some pain is expected especially when you exercise. 2. Increased swelling in your leg or knee; pain or swelling of the calf muscle in either lower leg. 3. Any fluid drainage from the incision. 4. Shortness of breath or chest pain. B. Please call [facility] at if you have any concerns or questions about your operation or recovery. The doctor or his nurse will return your call promptly. C. You must take antibiotics before dental work, bladder, bowel or other surgery. Your doctor will provide you with a permanent care to carry describing this precaution. IMPORTANT: * TAKE YOUR XARELTO DAILY . * CALL IF INCREASED PAIN, REDNESS, DRAINAGE OR FEVER GREATER THAT 101. * WEAR NAEEM HOSE 20 HOURS PER DAY FOR 2 WEEKS. * DENNIS Dressing - This is a large suction dressing covering your incision. This will help pull any excess drainage from the wound and allow your incision to heal properly. You may shower with this if you can keep the unit outside of the shower. If any bleeding or leakage is noted please call your doctor's office. This will remain on your incision for 7 days and then should be removed. This can be done yourself or by the home nursing staff if applicable. The entire unit is disposable once removed. Once removed, keep incision clean and dry. If redness or drainage is noted, please call your surgeon. . *Once your dennis dressing is removed --> DERMABOND Prineo- This is a mesh tape dressing that is covered with glue. It should remain in place until the incision is properly healed, usually 10-14 days. This dressing is designed to naturally slough off. You may trim the excess mesh tape as it peels off. Incision may be briefly wet in a shower. Dry immediately by blotting with a clean, dry towel. Do not bath or swim until instructed by your doctor. Do not scratch, rub, or pick at the dressing. Do not apply any topical ointments or lotions until dressing is completely removed and/or instructed by your doctor. There may be a small piece of suture material at one end of your incision. Do not pull or trim this. If it is bothersome or catching on clothing, you may cover it with a band-aid. FOLLOW UP VISIT: If appointment is not already scheduled: Please call [facility] to make a follow-up appointment for 2 weeks after your surgery at . Stand-Alone Forms: My [facility] [place], Smoking Cessation Medications and DC Order Prescriptions: New acetaminophen [Tylenol Extra Strength] 500 mg Tablet 1,000 mg PO Q8 14 Days Qty: 84 0RF tramadol 50 mg Tablet 50 - 100 mg PO Q4H PRN (Reason: pain) Qty: 30 0RF polyethylene glycol 3350 [Miralax] 17 gram powder in packet 17 g PO DAILY PRN (Reason: constipation) Qty: 5 0RF cefadroxil 500 mg capsule 500 mg PO BID Qty: 28 1RF Continued fluticasone propion-salmeterol [Advair Diskus] 250-50 mcg/dose blister with device 1 inh inhalation BID Qty: 60 5RF tramadol 50 mg tablet 50 mg PO Q6H PRN (Reason: pain) Qty: 120 0RF Rx Instructions: PER PT "NEEDS TO TAKE PRIOR TO BED". Xarelto 20 mg tablet 20 mg PO QAM Qty: 30 5RF Rx Instructions: must administer with evening meal ferrous sulfate 325 mg (65 mg iron) tablet 325 mg PO Q OTHER DAY Atrovent HFA 17 mcg/actuation HFA aerosol inhaler 1 puff INHALATION Q6H PRN (Reason: Shortness Of Breath Or Wheezing) Qty: 12.9 5RF Label Comments: Uses rarely - only in very cold weather Shingrix (PF) 50 mcg/0.5 mL suspension for reconstitution 0.5 ml IM .COMPLEX Qty: 1 1RF Rx Instructions: 0.5 mL IM Apply once and then again 2-6 months later; cyanocobalamin (vitamin B-12) [Vitamin B-12] 1,000 mcg Tablet 1,000 mcg PO QDL Label Comments: pt takes at noon [id number] Tablet 1 tab PO QDL diclofenac sodium 1 % Gel 2 g TOPICAL QID gabapentin 300 mg Capsule 600 mg PO HS lisinopril 20 mg tablet 20 mg PO HS famotidine 40 mg tablet 40 mg PO QAM metoprolol succinate 100 mg tablet extended release 24 hr 100 mg PO BID pantoprazole 40 mg tablet,delayed release (DR/EC) 40 mg PO QAM Label Comments: pt takes in the am gabapentin 300 mg capsule 300 mg PO BID ezetimibe [Zetia] 10 mg tablet 10 mg PO QDL Label Comments: pt takes at noon levothyroxine 150 mcg capsule 150 mcg PO QAM Discontinued acetaminophen 650 mg Tablet Extended Release 650 mg PO QID Discharge Orders: Discharge Order (Routine); Ordered 06/10/22 Ordered By: Renny Blanca Admission Data Admit Date/Time: 06/09/22 11:00 Attending Provider: Syed Stroud Admit Provider: Syed Stroud Primary Care Provider: Jaguar Renteria Other Providers: Tex Tobias Other Interventions: Discharge Summary Assessment (RN) Last Done: 06/10/22 13:34
== END 2022-06-10 17:15 | disposition home or self-care (01) ==
LOC: ASU 06:21 → PACUINP 06:21 → 3E 13:16

== ENCOUNTER 2023-01-06 08:33 | Inpatient (IN) ==
[2023-01-06] MEDS ORDERED: SODIUM CHLORIDE 0.9% 1,000 ML IV SCH (09:30)
[2023-01-06 09:48] LABS: Basophils # (auto) 0.03 K/uL (0.00-0.20); Basophils % (auto) 0.2 %; Hematocrit (blood only) 50.3 % (42.0-52.0); Hemoglobin 16.2 g/dl (14.0-18.0); Immature Granulocytes # (auto) 0.05 K/uL (0.01-0.20); Immature Granulocytes % (auto) 0.4 %; Lymphocytes # (auto) 0.61 K/uL (1.20-3.40); Lymphocytes % (auto) 4.6 %; Mean Corpuscular Hemoglobin 29.6 pg (25.0-34.0); Mean Corpuscular Hgb Conc 32.2 g/dL (32.0-36.0); Mean Platelet Volume 9.6 fL (9.4-12.4); Monocytes # (auto) 0.82 K/uL (0.11-0.59); Monocytes % (auto) 6.2 %; Neutrophils # (auto) 11.62 K/uL (1.40-6.50); Neutrophils % (auto) 88.6 %; Platelet Count 289 K/uL (130-400); RDW Coefficient of Variation 14.6 % (11.5-14.5); RDW Standard Deviation 49.9 fL (36.4-46.3); Red Blood Count 5.47 M/uL (4.70-6.10); White Blood Count 13.13 K/ul (4.8-10.8)
--- NOTE | 2023-01-06 09:53 | Emergency Department Note ---
Impression & Plan Abdominal pain, Diarrhea, Elevated procalcitonin, Leukocytosis, Elevated troponin ED Provider Note ED Provider Note NAME: ADAMARIS HOLCOMB Jr AGE:77 SEX: Male : 1945 ARRIVES VIA: private vehicle INFORMANT: Patient ED PROVIDER(s): Sonali Biggs DO CHIEF COMPLAINT: Abdominal pain, diarrhea, weakness HPI: This is a 77-year-old male who presents emergency department due to concern for increasing weakness and fatigue, abdominal pain, and diarrhea. Patient states he for started having symptoms on Tuesday evening. states last week he was diagnosed with a UTI and given Macrobid. states when he became ill Tuesday he was no longer able to take the Macrobid due to accompanying nausea and dry heaving. He states he had vomiting initially but since then has only been able to tolerate ice chips, no actual food, and is continued to be profoundly nauseated. He states pain in his abdomen is both upper and lower but centrally located. No radiation into the back. No history of IBD, IBD. Patient does have prior history of diverticulitis per the . He has had prior left inguinal hernia repair. PAST MEDICAL HISTORY:See Below PAST SURGICAL HISTORY:See Below FAMILY HISTORY:See Below SOCIAL HISTORY:See Below HOME MEDICATIONS:See Below ALLERGIES:See Below VITALS:See Below PHYSICAL EXAMINATION: GENERAL: alert, unwell appearing, well nourished, no distress, non-toxic EYE EXAM: normal conjunctiva, PERRL and EOM's grossly intact OROPHARYNX: no exudate, no erythema, lips, buccal mucosa, and tongue normal and mucous membranes are dry NECK: supple, no nuchal rigidity, no adenopathy, non-tender LUNGS: Clear to auscultation. Normal chest wall mechanics, no w/r/r HEART: no murmurs, S1 normal and S2 normal ABDOMEN: abdomen soft, epigastric and suprapubic tenderness with palpation, normo-active bowel sounds, no masses, no rebound or guarding, dull to percussion BACK: Back is symmetrical on inspection and there is no deformity, no midline tenderness, no CVA tenderness. SKIN: no rashes, petechiae, orbruising UPPER EXTREMITIES: upper extremities are grossly normal. FROM, nml pulses b/l. LOWER EXTREMITIES: No pitting edema. FROM, nml pulses b/l. NEURO EXAM: Normal sensorium, cranial nerves II-XII grossly intact, normal speech, no facial droop,nogross weakness of arms, no gross weakness of legs. Gross sensation intact. No ataxia. Vital Signs: reviewed and remarkable Differential Diagnosis: Viral syndrome, colitis, IBD, mesenteric ischemia, perforation, SBO, dehydration, ASHLEY, medication ADR, foodborne illness, as well as others were considered MEDICAL DECISION MAKING: This is a 77-year-old male presents emergency department due to 2 days of abdominal pain, nausea, vomiting, and diarrhea of unclear etiology. Patient afebrile however noted to have significant tachycardia on arrival. Labs drawn and sent, IV established, EKG and chest x-ray performed bedside interpreted by me and patient monitored on telemetry. Due to appearance of dehydration clinically was started on IV fluids. Patient given IV Tylenol for his discomfort. Patient's heart rate did slowly begin to improve with IV fluid resuscitation. He was sent for CT imaging which did not reveal any additional acute pathology. Patient with mild elevation of his lactic acid which I suspect is from dehydration. Patient with mild leukocytosis and elevated procalcitonin additionally so he was empirically given a dose of Zosyn until CT results were known. Blood culture sent additionally as a precaution. Stool cultures and C. difficile pending at the time of my discussion with the hospitalist team for additional evaluation and management. Patient was updated on all results, verbalized understanding and was in agreement. Patient's heart rate continued to improve with IV fluid resuscitation. Patient's reported he does have a history of atrial fibrillation and is anticoagulated for his A-fib as well as a prior history of PEs. Patient with mildly elevated troponin additionally however feel this is likely secondary to the tachycardia and increased demand. Consultation(s): 1215: Discussed with Dr. Mendenhall, [facility] hospitalist team. ER Treatment Provided: See below Diagnostics Interpreted By Me: -ECG: A-fib at 153, normal axis, normal intervals, ST depression noted V3 through V6, inverted T waves inferiorly -Cardiac Monitoring: An order was placed for continuous cardiac monitoring. The monitor shows a rate of 154 with A-fib rhythm. -Laboratory studies: As stated above and show below. -Imaging studies: X-ray Chest: A single view study of the chest was reviewed and was negative for cardiomegaly, focal infiltrate, effusion, pulmonary edema, or wide mediastinum. Triage Nursing Note Reviewed Prior/Outside Records Reviewed -cardiology visit from October reviewed Past Med/Surg History Medical History Anemia Asthma Stable Bilateral pulmonary embolism 08/2018 (unknown etiology) Cervicalgia Chronic lower back pain Degenerative disc disease Dysmetabolic syndrome X GERD (gastroesophageal reflux disease) History of benign thyroid tumor History of DVT (deep vein thrombosis) 12/2017 LLE - treated w/ AC x 6 months (unknown etiology) 08/2017 RLE after stopping xarelto History of MRSA infection MRSA in right knee treated in 2001 (Anna at surgeon's office made aware) History of pulmonary embolism Bilateral in 08/2018, unknown etiology. History of squamous cell carcinoma Hyperlipidemia Hypertension Hypothyroidism Kidney stones Osteoarthritis Prediabetes diet controlled Spinal stenosis Surgical History History of arthroscopy of left knee History of arthroscopy of right knee History of colonoscopy Colonoscopy/EGD (for anemia evaluation- 04/29/22): MAC at [facility] History of esophagogastroduodenoscopy (EGD) History of fusion of cervical spine restricted ROM from side to side per pt History of hand surgery Left History of hernia repair Left abdominal History of shoulder surgery Left History of shoulder surgery Right x3 (+ hardware) History of squamous cell carcinoma excision History of surgery Left biceps tendon repair History of total thyroidectomy Nausea and vomiting after administration of anesthetic agent S/P rotator cuff repair Family History Brother Family history of diabetes mellitus Sister Family history of diabetes mellitus Grandmother (Maternal) Myocardial infarction Father Prostate cancer Mother Family history of reaction to anesthesia nausea/vomiting Brother Family history of diabetes mellitus Sister Family history of diabetes mellitus Denies family history of Ovarian cancer Breast cancer Colorectal cancer Social History Smoking Status: Former smoker Tobacco Type: Cigarettes Age Started Using Tobacco: 22; Age Quit Using Tobacco: 24; Second Hand Exposure: No; Do You Dip or Chew Tobacco: No; Hx Alcohol Use: No Hx Substance Use: No Preferred Language: Slovak Communication Ability: Effective Visual Impairment: No Limitations Hearing Ability: Normal Technology Infusion Specialist Required: No Beliefs That Will Affect Care: None marital status: Current Living Situation: Spouse current occupational status: retired How many Children do You have: 3 Feels Safe at Home: Yes Childhood Exposure to Second-Hand Smoke: No Diet: regular caffeine: No during the past year weight has: remained stable Dental Care, Regularly: Yes Physical Activity Frequency: Daily Seatbelt Use: always Sunscreen Use: Yes Assistive Devices: Cane, Glasses and Walker Allergies Allergies Allergy/AdvReac Type Severity Reaction Status Date / Time Sulfa (Sulfonamide Allergy Severe Anaphylaxis Verified 12/28/22 12:59 Antibiotics) A CHILD trimethoprim Allergy Severe Anaphylaxis- Verified 12/28/22 12:59 A CHILD adhesive Allergy Intermediate TAPE-SKIN Verified 12/28/22 12:59 IRRITATION clonidine Allergy Intermediate EDEMA/HIVES Verified 12/28/22 12:59 meperidine Allergy Intermediate SWELLING Verified 12/28/22 12:59 ondansetron Allergy Intermediate swelling Verified 12/28/22 12:59 codeine Allergy Mild RASH/Itchin Verified 12/28/22 12:59 g zoster vaccine live Allergy Unknown Unknown Verified 12/28/22 12:59 Home Meds Home Medications Medication Instructions Recorded Confirmed cyanocobalamin (vitamin B-12) 1,000 mcg PO QDL 02/15/19 01/06/23 1,000 mcg tablet (Vitamin B-12) [id number]-ttytngxk-[id number] tablet 1 tab PO QDL 12/19/20 01/06/23 ezetimibe 10 mg tablet (Zetia) 10 mg PO QDL 04/22/22 01/06/23 gabapentin 300 mg capsule 600 mg PO HS 04/22/22 01/06/23 levothyroxine 150 mcg capsule 150 mcg PO QAM 04/22/22 01/06/23 lisinopril 20 mg tablet 20 mg PO HS 04/22/22 01/06/23 ferrous sulfate 325 mg (65 mg 325 mg PO DAILY 11/01/22 01/06/23 iron) tablet amoxicillin 500 mg tablet 500 mg PO QID PRN Dental Procedures 12/01/22 01/06/23 metoprolol succinate 100 mg 150 mg PO BID 12/01/22 01/06/23 tablet,extended release 24 hr famotidine 40 mg tablet 40 mg PO DAILY 01/06/23 01/06/23 gabapentin 300 mg capsule 600 mg PO USEASDIRECTD 01/06/23 01/06/23 nitrofurantoin See Rx Instructions .Route .COMPLEX 01/06/23 01/06/23 monohydrate/macrocrystals 100 mg capsule (Macrobid) pantoprazole 40 mg tablet,delayed 40 mg PO DAILY 01/06/23 01/06/23 release Previous Rx's Medication Instructions Recorded ipratropium bromide 17 1 puff inhalation Q6H PRN 11/26/19 mcg/actuation HFA aerosol inhaler Shortness Of Breath Or Wheezing (Atrovent HFA) #12.9 grams polyethylene glycol 3350 17 gram 17 g PO DAILY PRN constipation #5 06/10/22 oral powder packet (Miralax) ea fluticasone 250 mcg-salmeterol 50 1 inh inhalation BID #60 ea 11/08/22 mcg/dose blistr powdr for inhalation (Advair Diskus) rivaroxaban 20 mg tablet (Xarelto) 20 mg PO QAM #30 tabs 12/13/22 tramadol 50 mg tablet 50 mg PO Q6H PRN pain #120 tabs 12/30/22 Results & Data (ED) Vital Signs Vital Signs - 24 hr 01/06/23 08:44 01/06/23 08:58 01/06/23 09:14 Temperature 36.2 C L Temperature Source Temporal Artery Scan Pulse Rate 110 H 156 H 140 H Pulse Rate from SpO2 Sensor 121 H Respiratory Rate 20 18 Respiratory Effort / Characteristics Non-Labored Respiratory Depth Normal Blood Pressure 98/63 L 128/84 Blood Pressure Mean 74 98 Pulse Oximetry 93 95 Oxygen Delivery Method Room Air Room Air Sepsis Recent Fever Within 48 Hours No Sepsis New/Unexplained Change in Mental Status N/A Sepsis Action Taken by Nursing Physician Notified 01/06/23 10:30 01/06/23 11:00 01/06/23 11:30 Temperature Temperature Source Pulse Rate 123 H 119 H 117 H Pulse Rate from SpO2 Sensor 101 H 119 H 116 H Respiratory Rate 23 26 H 23 Respiratory Effort / Characteristics Respiratory Depth Blood Pressure 143/100 H 142/98 H 148/98 H Blood Pressure Mean 114 112 114 Pulse Oximetry 97 96 96 Oxygen Delivery Method Room Air Room Air Room Air Sepsis Recent Fever Within 48 Hours Sepsis New/Unexplained Change in Mental Status Sepsis Action Taken by Nursing 01/06/23 12:00 01/06/23 12:31 08/31/23 12:53 Temperature Temperature Source Pulse Rate 117 H 118 H 117 H Pulse Rate from SpO2 Sensor 118 H Respiratory Rate 22 22 Respiratory Effort / Characteristics Respiratory Depth Blood Pressure 140/80 159/75 H Blood Pressure Mean 100 103 Pulse Oximetry 95 96 Oxygen Delivery Method Room Air Sepsis Recent Fever Within 48 Hours Sepsis New/Unexplained Change in Mental Status Sepsis Action Taken by Nursing 01/06/23 13:30 01/06/23 14:00 01/06/23 15:00 Temperature Temperature Source Pulse Rate 115 H 110 H 122 H Pulse Rate from SpO2 Sensor 110 H 13 L 118 H Respiratory Rate 20 18 14 Respiratory Effort / Characteristics Respiratory Depth Blood Pressure 139/109 H 141/102 H 168/99 H Blood Pressure Mean 119 115 122 Pulse Oximetry 94 99 95 Oxygen Delivery Method Room Air Room Air Sepsis Recent Fever Within 48 Hours Sepsis New/Unexplained Change in Mental Status Sepsis Action Taken by Nursing Laboratory Data 01/06/23 09:13 01/06/23 09:13 Lab Results 01/06/23 01/06/23 01/06/23 Range/Units 09:13 09:13 09:13 WBC 13.13 H (4.8-10.8) K/ul RBC 5.47 (4.70-6.10) M/uL Hgb 16.2 (14.0-18.0) g/dl Hct 50.3 (42.0-52.0) % MCV 92.0 (80.0-100.0) fL MCH 29.6 (25.0-34.0) pg MCHC 32.2 (32.0-36.0) g/dL RDW Std Deviation 49.9 H (36.4-46.3) fL RDW Coeff of Bindu 14.6 H (11.5-14.5) % Plt Count 289 (130-400) K/uL MPV 9.6 (9.4-12.4) fL Immature Gran % (Auto) 0.4 % Neut % (Auto) 88.6 % Lymph % (Auto) 4.6 % [place] % (Auto) 6.2 % Eos % (Auto) 0.0 % Baso % (Auto) 0.2 % Neut # (Auto) 11.62 H (1.40-6.50) K/uL Lymph # (Auto) 0.61 L (1.20-3.40) K/uL [place] # (Auto) 0.82 H (0.11-0.59) K/uL Eos # (Auto) 0.00 (0.00-0.50) K/uL Baso # (Auto) 0.03 (0.00-0.20) K/uL Immature Gran # (Auto) 0.05 (0.01-0.20) K/uL Sodium 137 (136-145) mmol/L Potassium 3.6 (3.5-5.1) mmol/L Chloride 101 (98-107) mmol/L Carbon Dioxide 24 (21-32) mmol/L Anion Gap 12 H (3-11) BUN 20 (6-23) mg/dl Creatinine 0.87 (0.6-1.4) mg/dl Est Cr Clr Drug Dosing 80.2 ml/min Est GFR ( Amer) 97.8 ml/min Est GFR (Non-Af Amer) 84.4 ml/min BUN/Creatinine Ratio 23.0 H (10-20) Glucose 123 H (70-99(Fasting)) mg/dl Lactate 2.4 H* (0.4-2.0) mmol/L Calcium 9.2 (8.6-10.3) mg/dl Magnesium 1.9 (1.7-2.4) mg/dl Total Bilirubin 1.7 H (0.2-1.0) mg/dl Direct Bilirubin 0.5 H (0-0.2) mg/dl AST 21 (13-39) U/L ALT 18 (7-52) U/L Alkaline Phosphatase 58 (34-104) U/L Troponin I High Sens 34.1 H (0-20) pg/ml Total Protein 7.1 (6.0-8.3) gm/dl Albumin 3.9 (3.4-5.0) gm/dl Procalcitonin (0-0.5) ng/ml Stl C. cayetanensis PCR (NotDetected) Stool Rotavirus A PCR (NotDetected) Stl Adenov F 40/41 PCR (NotDetected) Stool Astrovirus (PCR) (NotDetected) Stool Campylobacter PCR (NotDetected) Stl C. diff Tox B Gene (Neg) Stool Cryptosporidium PCR (NotDetected) Stl E.coli Shiga Tox PCR (NotDetected) Stl Enterotoxigenic E PCR (NotDetected) Stool EPEC (PCR) (NotDetected) Stool EAEC (PCR) (NotDetected) Stl E. histolytica PCR (NotDetected) Stool Giardia Lamblia PCR (NotDetected) Stool Salmonella PCR (NotDetected) Stool Sapovirus (PCR) (NotDetected) Stl P. shigelloides PCR (NotDetected) Stl Shigella/EIEC PCR (NotDetected) St Y.enterocolitica PCR (NotDetected) Stool Vibrio (PCR) (NotDetected) Stl Vibrio cholerae PCR (NotDetected) Stl Norovirus GI/GII PCR (NotDetected) SARS-CoV-2 (PCR) (Negative) Influenza Type A (PCR) (Neg) Influenza Type B (PCR) (Neg) RSV (RT-PCR) (Neg) 01/06/23 01/06/23 01/06/23 Range/Units 09:13 11:25 12:31 WBC (4.8-10.8) K/ul RBC (4.70-6.10) M/uL Hgb (14.0-18.0) g/dl Hct (42.0-52.0) % MCV (80.0-100.0) fL MCH (25.0-34.0) pg MCHC (32.0-36.0) g/dL RDW Std Deviation (36.4-46.3) fL RDW Coeff of Bindu (11.5-14.5) % Plt Count (130-400) K/uL MPV (9.4-12.4) fL Immature Gran % (Auto) % Neut % (Auto) % Lymph % (Auto) % [place] % (Auto) % Eos % (Auto) % Baso % (Auto) % Neut # (Auto) (1.40-6.50) K/uL Lymph # (Auto) (1.20-3.40) K/uL [place] # (Auto) (0.11-0.59) K/uL Eos # (Auto) (0.00-0.50) K/uL Baso # (Auto) (0.00-0.20) K/uL Immature Gran # (Auto) (0.01-0.20) K/uL Sodium (136-145) mmol/L Potassium (3.5-5.1) mmol/L Chloride (98-107) mmol/L Carbon Dioxide (21-32) mmol/L Anion Gap (3-11) BUN (6-23) mg/dl Creatinine (0.6-1.4) mg/dl Est Cr Clr Drug Dosing ml/min Est GFR ( Amer) ml/min Est GFR (Non-Af Amer) ml/min BUN/Creatinine Ratio (10-20) Glucose (70-99(Fasting)) mg/dl Lactate 1.6 (0.4-2.0) mmol/L Calcium (8.6-10.3) mg/dl Magnesium (1.7-2.4) mg/dl Total Bilirubin (0.2-1.0) mg/dl Direct Bilirubin (0-0.2) mg/dl AST (13-39) U/L ALT (7-52) U/L Alkaline Phosphatase (34-104) U/L Troponin I High Sens (0-20) pg/ml Total Protein (6.0-8.3) gm/dl Albumin (3.4-5.0) gm/dl Procalcitonin 0.58 H (0-0.5) ng/ml Stl C. cayetanensis PCR (NotDetected) Stool Rotavirus A PCR (NotDetected) Stl Adenov F 40/41 PCR (NotDetected) Stool Astrovirus (PCR) (NotDetected) Stool Campylobacter PCR (NotDetected) Stl C. diff Tox B Gene (Neg) Stool Cryptosporidium PCR (NotDetected) Stl E.coli Shiga Tox PCR (NotDetected) Stl Enterotoxigenic E PCR (NotDetected) Stool EPEC (PCR) (NotDetected) Stool EAEC (PCR) (NotDetected) Stl E. histolytica PCR (NotDetected) Stool Giardia Lamblia PCR (NotDetected) Stool Salmonella PCR (NotDetected) Stool Sapovirus (PCR) (NotDetected) Stl P. shigelloides PCR (NotDetected) Stl Shigella/EIEC PCR (NotDetected) St Y.enterocolitica PCR (NotDetected) Stool Vibrio (PCR) (NotDetected) Stl Vibrio cholerae PCR (NotDetected) Stl Norovirus GI/GII PCR (NotDetected) SARS-CoV-2 (PCR) NEGATIVE (Negative) Influenza Type A (PCR) Negative (Neg) Influenza Type B (PCR) Negative (Neg) RSV (RT-PCR) Negative (Neg) 01/06/23 01/06/23 Range/Units 13:58 13:58 WBC (4.8-10.8) K/ul RBC (4.70-6.10) M/uL Hgb (14.0-18.0) g/dl Hct (42.0-52.0) % MCV (80.0-100.0) fL MCH (25.0-34.0) pg MCHC (32.0-36.0) g/dL RDW Std Deviation (36.4-46.3) fL RDW Coeff of Bindu (11.5-14.5) % Plt Count (130-400) K/uL MPV (9.4-12.4) fL Immature Gran % (Auto) % Neut % (Auto) % Lymph % (Auto) % [place] % (Auto) % Eos % (Auto) % Baso % (Auto) % Neut # (Auto) (1.40-6.50) K/uL Lymph # (Auto) (1.20-3.40) K/uL [place] # (Auto) (0.11-0.59) K/uL Eos # (Auto) (0.00-0.50) K/uL Baso # (Auto) (0.00-0.20) K/uL Immature Gran # (Auto) (0.01-0.20) K/uL Sodium (136-145) mmol/L Potassium (3.5-5.1) mmol/L Chloride (98-107) mmol/L Carbon Dioxide (21-32) mmol/L Anion Gap (3-11) BUN (6-23) mg/dl Creatinine (0.6-1.4) mg/dl Est Cr Clr Drug Dosing ml/min Est GFR ( Amer) ml/min Est GFR (Non-Af Amer) ml/min BUN/Creatinine Ratio (10-20) Glucose (70-99(Fasting)) mg/dl Lactate (0.4-2.0) mmol/L Calcium (8.6-10.3) mg/dl Magnesium (1.7-2.4) mg/dl Total Bilirubin (0.2-1.0) mg/dl Direct Bilirubin (0-0.2) mg/dl AST (13-39) U/L ALT (7-52) U/L Alkaline Phosphatase (34-104) U/L Troponin I High Sens (0-20) pg/ml Total Protein (6.0-8.3) gm/dl Albumin (3.4-5.0) gm/dl Procalcitonin (0-0.5) ng/ml Stl C. cayetanensis PCR Not Detected (NotDetected) Stool Rotavirus A PCR Not Detected (NotDetected) Stl Adenov F 40/41 PCR Not Detected (NotDetected) Stool Astrovirus (PCR) Not Detected (NotDetected) Stool Campylobacter PCR Not Detected (NotDetected) Stl C. diff Tox B Gene Negative Cdiff Gene (Neg) Stool Cryptosporidium PCR Not Detected (NotDetected) Stl E.coli Shiga Tox PCR Not Detected (NotDetected) Stl Enterotoxigenic E PCR Not Detected (NotDetected) Stool EPEC (PCR) Not Detected (NotDetected) Stool EAEC (PCR) Not Detected (NotDetected) Stl E. histolytica PCR Not Detected (NotDetected) Stool Giardia Lamblia PCR Not Detected (NotDetected) Stool Salmonella PCR Not Detected (NotDetected) Stool Sapovirus (PCR) Not Detected (NotDetected) Stl P. shigelloides PCR Not Detected (NotDetected) Stl Shigella/EIEC PCR Not Detected (NotDetected) St Y.enterocolitica PCR Not Detected (NotDetected) Stool Vibrio (PCR) Not Detected (NotDetected) Stl Vibrio cholerae PCR Not Detected (NotDetected) Stl Norovirus GI/GII PCR Not Detected (NotDetected) SARS-CoV-2 (PCR) (Negative) Influenza Type A (PCR) (Neg) Influenza Type B (PCR) (Neg) RSV (RT-PCR) (Neg) Administered Medications Sodium Chloride (Nss 1000ml) 1,000 mls @ 125 mls/hr IV .Q8H ALEXIS Stop: 02/05/23 12:29 Last Admin: 01/06/23 12:36 Dose: 125 mls/hr Documented By: MANISHK Discontinued Medications Sodium Chloride (Nss 1000ml) 1,000 mls @ 999 mls/hr IV .Q1H1M ALEXIS Stop: 01/06/23 10:30 Last Infusion: 01/06/23 10:39 Dose: 0 mls/hr Documented By: JEAN CLAUDE Admin: 01/06/23 09:20 Dose: 999 mls/hr Documented By: JEAN CLAUDE Sodium Chloride (Nss 1000ml) 1,000 mls @ 999 mls/hr IV .Q1H1M ONE Stop: 01/06/23 11:05 Last Infusion: 01/06/23 11:53 Dose: 0 mls/hr Documented By: JEAN CLAUDE Admin: 01/06/23 10:45 Dose: 999 mls/hr Documented By: JEAN CLAUDE Piperacillin Sod/Tazobactam Sod (Zosyn) 4.5 gm in 120 mls @ 240 mls/hr IV NOW ONE Stop: 01/06/23 10:51 Last Infusion: 01/06/23 11:35 Dose: 0 mls/hr Documented By: JEAN CLAUDE Admin: 01/06/23 10:49 Dose: 240 mls/hr Documented By: JEAN CLAUDE Ioversol (Optiray 320 100ml) 94 ml IV ONCE ONE Stop: 01/06/23 10:38 Last Admin: 01/06/23 10:37 Dose: 94 ml Documented By: MONISHA Imaging Data Radiologist's Impression: Abdomen/Pelvis CT 01/06/23 09:16 CT abd pelvis IV con only CLINICAL HISTORY: abd pain, diarrhea TECHNIQUE: Helical axial images of the abdomen and pelvis were obtained and displayed. Automated dose lowering techniques and/or adjustment according to patient size were utilized for this exam. This exam was performed with intravenous contrast. CT DOSE: 1340.26 mGy.cm COMPARISON: Comparison is made to CT abdomen pelvis 03/13/2021 FINDINGS: Lower chest: Bibasilar atelectasis versus scarring is seen. Liver: Unremarkable. No focal lesions are seen. Gallbladder and biliary tree: No calcified gallstones. Normal caliber wall. No intra- or extrahepatic biliary ductal dilation. Pancreas: Unremarkable, no focal lesions. Spleen: Unremarkable. Adrenals: Unremarkable. Kidneys and ureters: Right renal cyst is seen. Bladder: Unremarkable. Reproductive organs: Prostatomegaly is seen. Bowel: Diverticulosis is seen without evidence of diverticulitis. The appendix is normal. Lymph nodes Retroperitoneal: Subcentimeter lymph nodes are noted. Pelvic: Unremarkable. Mesenteric: Unremarkable. Peritoneum: Normal. Vessels: Atherosclerotic calcifications are seen. Abdominal wall: Bilateral fat-containing inguinal hernias are seen. Bones: Degenerative changes in the visualized spine. IMPRESSION: 1. No acute abnormality to explain diarrhea and fever and chills. 2. Diverticulosis without diverticulitis. 3. Prostatomegaly. ACT 112: Negative or not required by law. Electronically signed by: Huey Jalloh M.D. 01/06/2023 10:50 AM Chest X-Ray 01/06/23 09:16 SINGLE VIEW CHEST CLINICAL HISTORY: Sepsis. FINDINGS: An AP, portable, upright chest radiograph is compared to study dated 05/21/2022. Correlation is made with chest CT dated 08/23/2018. The examination is degraded by portable technique and apical lordotic positioning. The heart is enlarged. The pulmonary vasculature is noncongested. There is mild bibasilar scarring/atelectasis. No airspace consolidation or large pleural effusion is identified. No pneumothorax is seen. The skeletal structures are osteopenic. The bony thorax is grossly intact. IMPRESSION: Cardiomegaly with no active disease in the chest. ACT 112: Negative or not required by law. Electronically signed by: Jonny Cordoba M.D. 01/06/2023 9:58 AM Discharge Plan Visit Data Chief Complaint: Illness Stated Complaint: FEVER,HEADACHE,DIARRHEA,DISORIENTED ED Provider: Sonali Biggs Discharge Problem: Abdominal pain, Diarrhea, Elevated procalcitonin, Leukocytosis, Elevated troponin Forms Stand Alone Forms: My [employer] Prescriptions Prescriptions: No Action fluticasone propion-salmeterol [Advair Diskus] 250-50 mcg/dose blister with device 1 inh inhalation BID Qty: 60 5RF Xarelto 20 mg tablet 20 mg PO QAM Qty: 30 5RF tramadol 50 mg tablet 50 mg PO Q6H PRN (Reason: pain) Qty: 120 0RF Rx Instructions: PER PT "NEEDS TO TAKE PRIOR TO BED". ferrous sulfate 325 mg (65 mg iron) tablet 325 mg PO DAILY Atrovent HFA 17 mcg/actuation HFA aerosol inhaler 1 puff INHALATION Q6H PRN (Reason: Shortness Of Breath Or Wheezing) Qty: 12.9 5RF Patient Comments: Uses rarely - only in very cold weather amoxicillin 500 mg tablet 500 mg PO QID PRN (Reason: Dental Procedures) metoprolol succinate 100 mg tablet extended release 24 hr 150 mg PO BID cyanocobalamin (vitamin B-12) [Vitamin B-12] 1,000 mcg Tablet 1,000 mcg PO QDL Patient Comments: pt takes at noon slussxvchqxx-bbogvrzg-wbegct Tablet 1 tab PO QDL gabapentin 300 mg Capsule 600 mg PO HS lisinopril 20 mg tablet 20 mg PO HS ezetimibe [Zetia] 10 mg tablet 10 mg PO QDL Patient Comments: pt takes at noon levothyroxine 150 mcg capsule 150 mcg PO QAM polyethylene glycol 3350 [Miralax] 17 gram powder in packet 17 g PO DAILY PRN (Reason: constipation) Qty: 5 0RF famotidine 40 mg tablet 40 mg PO DAILY pantoprazole 40 mg tablet,delayed release (DR/EC) 40 mg PO DAILY gabapentin 300 mg capsule 600 mg PO USEASDIRECTD Rx Instructions: TAKE 2 CAPSULES BY MOUTH WITH DINNER nitrofurantoin monohyd/m-cryst [Macrobid] 100 mg capsule See Rx Instructions .ROUTE .COMPLEX Rx Instructions: per , he got sick on tuesday and hasn't finished the whole 10 day therapy. must administer with a meal/food Referrals Referrals: Jaguar Renteria, [Primary Care Provider] -
--- NOTE | 2023-01-06 09:59 | XRay Report ---
SINGLE VIEW CHEST CLINICAL HISTORY: Sepsis. FINDINGS: An AP, portable, upright chest radiograph is compared to study dated 05/21/2022. Correlation is made with chest CT dated 08/23/2018. The examination is degraded by portable technique and apical lordotic positioning. The heart is enlarged. The pulmonary vasculature is noncongested. There is mild bibasilar scarring/atelectasis. No airspace consolidation or large pleural effusion is identified. N o pneumothorax is seen. The skeletal structures are osteopenic. The bony thorax is grossly intact. IMPRESSION: Cardiomegaly with no active disease in the chest. ACT 112: Negative or not required by law. Electronically signed by: Jonny Cordoba M.D. 01/06/2023 9:58 AM
[2023-01-06] MEDS ORDERED: SODIUM CHLORIDE 0.9% 1,000 ML IV ONE (10:05)
[2023-01-06 10:16] LABS: Albumin Level 3.9 gm/dl (3.4-5.0); Bilirubin Direct 0.5 mg/dl (0-0.2); Bilirubin,Total 1.7 mg/dl (0.2-1.0); Calcium 9.2 mg/dl (8.6-10.3); Creatinine Clr Calc Pharmacy 80.2 ml/min; Est GFR (African American) 97.8 ml/min; Est GFR (Non-African American) 84.4 ml/min; Magnesium 1.9 mg/dl (1.7-2.4); Potassium 3.6 mmol/L (3.5-5.1); Total Protein 7.1 gm/dl (6.0-8.3)
[2023-01-06] MEDS ORDERED: PIPERACILLIN/TAZOBACTAM 4.5 GM/120 ML BAG IV ONE (10:22)
[2023-01-06 10:23] LABS: Troponin I High Sensitivity 34.1 pg/ml (0-20)
[2023-01-06] MEDS ORDERED: OPTIRAY 320 100ml IV ONE (10:37)
--- NOTE | 2023-01-06 10:52 | CT Scan Report ---
CT abd pelvis IV con only CLINICAL HISTORY: abd pain, diarrhea TECHNIQUE: Helical axial images of the abdomen and pelvis were obtained and displayed. Automated dose lowering techniques and/or adjustment according to patient size were utilized for this exam. This e xam was performed with intravenous contrast. CT DOSE: 1340.26 mGy.cm COMPARISON: Comparison is made to CT abdomen pelvis 03/13/2021 FINDINGS: Lower chest: Bibasilar atelectasis versus scarring is seen. Liver: Unremarkable. No focal lesions are seen. Gallbladder and biliary tree: No calcified gallstones. Normal caliber wall. No intra- or extrahepatic biliary ductal dilation. Pancreas: Unremarkable, no focal lesions. Spleen: Unremarkable. Adrenals: Unremarkable. Kidneys and ureters: Right renal cyst is seen. Bladder: Unremarkable. Reproductive organs: Prostatomegaly is seen. Bowel: Diverticulosis is seen without evidence of diverticulitis. The appendix is normal. Lymph nodes Retroperitoneal: Subcentimeter lymph nodes are noted. Pelvic: Unremarkable. Mesenteric: Unremarkable. Peritoneum: Normal. Vessels: Atherosclerotic calcifications are seen. Abdominal wall: Bilateral fat-containing inguinal hernias are seen. Bones: Degenerative changes in the visualized spine. IMPRESSION: 1. No acute abnormality to explain diarrhea and fever and chills. 2. Diverticulosis without diverticulitis. 3. Prostatomegaly. ACT 112: Negative or not required by law. Electronically signed by: Huey Jalloh M.D. 01/06/2023 10:50 AM
[2023-01-06] MEDS: SODIUM CHLORIDE 0.9% 1,000 ML IV SCH ×2 (12:36→18:59)
[2023-01-06 13:42] LABS: Influenza A virus by PCR Negative (Neg); Influenza B virus by PCR Negative (Neg); RSV by PCR Negative (Neg); SARS CoV2 RNA(COVID-19) Ceph NEGATIVE (Negative)
--- NOTE | 2023-01-06 14:50 | History & Physical Report ---
Date of Service January 06, 2023 Assessment & Plan (1) Atrial fibrillation with RVR: Plan: PLAN: Neuro: Chronic pain and reported neuropathy -Continue gabapentin Resp: History of chronic venous thromboembolism -Continue systemic anticoagulation with rivaroxaban COPD -Continue home inhalers CV: Elevated troponin likely secondary to type II ischemia -Recheck troponin in a.m. Atrial fibrillation and rapid ventricular response likely secondary to dehydration -Continue metoprolol Hypertension -Hold lisinopril in setting of ASHLEY Hyperlipidemia -Continue ezetimibe 10 mg Fluids/Renal: Dehydration Acute kidney injury secondary to dehydration -Continue normal saline at 125 mL/h ID: Leukocytosis -Stool studies and C. difficile pending GI/Nutrition: Gastroenteritis -Continue chronic acid suppression with Pepcid and PPI -This was reported as a purposeful prescription, unclear exact etiology -Clear liquid diet advance as tolerated -Likely cause of abdominal pain, lactic acid has cleared Black stools -Guaiac stools Heme: Anemia: At baseline -Previously receiving IV iron, currently on iron supplementation DVT prophylaxis: Rivaroxaban Endocrine: Hypothyroidism -Continue levothyroxine 150 mcg daily Code Status: DNR in event of cardiac arrest Disposition: MedSurg with telemetry (2) Dehydration: (3) COPD (chronic obstructive pulmonary disease): (4) Bilateral pulmonary embolism: (5) Elevated troponin: History of Present Illness Chief Complaint: Weakness, diarrhea, dehydration Primary Care Provider: Jaguar Renteria DO Patient is a 77-year-old male with past medical history for anemia, chronic pain, chronic esophagitis, anemia receiving intermittent IV infusions, COPD, hyperlipidemia, systemic anticoagulation secondary to recurrent venous thromboemboli, atrial fibrillation who presents after a 2-day history of loose stools and black stools. It is associated with mid epigastric crampy abdominal pain without radiation. He is lightheaded when he stands up. He reports that he has had decreased oral intake able to eat only ice chips. He was nauseous x48 hours and vomited once 2 days ago. Does not report chest pain, dyspnea. There is dark stools, no hematochezia. Denies any sick contacts, no recent travel. Allergies Allergy/AdvReac Type Severity Reaction Status Date / Time Sulfa (Sulfonamide Allergy Severe Anaphylaxis Verified 12/28/22 12:59 Antibiotics) A CHILD trimethoprim Allergy Severe Anaphylaxis- Verified 12/28/22 12:59 A CHILD adhesive Allergy Intermediate TAPE-SKIN Verified 12/28/22 12:59 IRRITATION clonidine Allergy Intermediate EDEMA/HIVES Verified 12/28/22 12:59 meperidine Allergy Intermediate SWELLING Verified 12/28/22 12:59 ondansetron Allergy Intermediate swelling Verified 12/28/22 12:59 codeine Allergy Mild RASH/Itchin Verified 12/28/22 12:59 g zoster vaccine live Allergy Unknown Unknown Verified 12/28/22 12:59 Home Medications Medication Instructions Recorded Confirmed Type cyanocobalamin (vitamin B-12) 1,000 mcg PO QDL 02/15/19 01/06/23 History 1,000 mcg tablet (Vitamin B-12) ipratropium bromide 17 1 puff inhalation Q6H PRN 11/26/19 01/06/23 Rx mcg/actuation HFA aerosol inhaler Shortness Of Breath Or Wheezing (Atrovent HFA) #12.9 grams zrbaybyvzvjf-iygyyzkp-awjbrn tablet 1 tab PO QDL 12/19/20 01/06/23 History ezetimibe 10 mg tablet (Zetia) 10 mg PO QDL 04/22/22 01/06/23 History gabapentin 300 mg capsule 600 mg PO HS 04/22/22 01/06/23 History levothyroxine 150 mcg capsule 150 mcg PO QAM 04/22/22 01/06/23 History lisinopril 20 mg tablet 20 mg PO HS 04/22/22 01/06/23 History polyethylene glycol 3350 17 gram 17 g PO DAILY PRN constipation #5 06/10/22 01/06/23 Rx oral powder packet (Miralax) ea ferrous sulfate 325 mg (65 mg 325 mg PO DAILY 11/01/22 01/06/23 History iron) tablet fluticasone 250 mcg-salmeterol 50 1 inh inhalation BID #60 ea 11/08/22 01/06/23 Rx mcg/dose blistr powdr for inhalation (Advair Diskus) amoxicillin 500 mg tablet 500 mg PO QID PRN Dental Procedures 12/01/22 01/06/23 History metoprolol succinate 100 mg 150 mg PO BID 12/01/22 01/06/23 History tablet,extended release 24 hr rivaroxaban 20 mg tablet (Xarelto) 20 mg PO QAM #30 tabs 12/13/22 01/06/23 Rx tramadol 50 mg tablet 50 mg PO Q6H PRN pain #120 tabs 12/30/22 01/06/23 Rx famotidine 40 mg tablet 40 mg PO DAILY 01/06/23 01/06/23 History gabapentin 300 mg capsule 600 mg PO USEASDIRECTD 01/06/23 01/06/23 History nitrofurantoin See Rx Instructions .Route .COMPLEX 01/06/23 01/06/23 History monohydrate/macrocrystals 100 mg capsule (Macrobid) pantoprazole 40 mg tablet,delayed 40 mg PO DAILY 01/06/23 01/06/23 History release Past Med/Surg History Medical History Anemia Asthma Stable Bilateral pulmonary embolism 08/2018 (unknown etiology) Cervicalgia Chronic lower back pain Degenerative disc disease Dysmetabolic syndrome X GERD (gastroesophageal reflux disease) History of benign thyroid tumor History of DVT (deep vein thrombosis) 12/2017 LLE - treated w/ AC x 6 months (unknown etiology) 08/2017 RLE after stopping xarelto History of MRSA infection MRSA in right knee treated in 2001 (Anna at surgeon's office made aware) History of pulmonary embolism Bilateral in 08/2018, unknown etiology. History of squamous cell carcinoma Hyperlipidemia Hypertension Hypothyroidism Kidney stones Osteoarthritis Prediabetes diet controlled Spinal stenosis Surgical History History of arthroscopy of left knee History of arthroscopy of right knee History of colonoscopy Colonoscopy/EGD (for anemia evaluation- 04/29/22): [facility] at [facility] History of esophagogastroduodenoscopy (EGD) History of fusion of cervical spine restricted ROM from side to side per pt History of hand surgery Left History of hernia repair Left abdominal History of shoulder surgery Left History of shoulder surgery Right x3 (+ hardware) History of squamous cell carcinoma excision History of surgery Left biceps tendon repair History of total thyroidectomy Nausea and vomiting after administration of anesthetic agent S/P rotator cuff repair Family History Brother Family history of diabetes mellitus Sister Family history of diabetes mellitus Grandmother (Maternal) Myocardial infarction Father Prostate cancer Mother Family history of reaction to anesthesia nausea/vomiting Brother Family history of diabetes mellitus Sister Family history of diabetes mellitus Denies family history of Ovarian cancer Breast cancer Colorectal cancer Social History Smoking Status: Former smoker Tobacco Type: Cigarettes Age Started Using Tobacco: 22; Age Quit Using Tobacco: 24; Second Hand Exposure: No; Do You Dip or Chew Tobacco: No; Hx Alcohol Use: No Hx Substance Use: No Preferred Language: Kittitian Communication Ability: Effective Visual Impairment: No Limitations Hearing Ability: Normal Accounts Payable Assistant Required: No Beliefs That Will Affect Care: None marital status: Current Living Situation: Spouse current occupational status: retired How many Children do You have: 3 Feels Safe at Home: Yes Childhood Exposure to Second-Hand Smoke: No Diet: regular caffeine: No during the past year weight has: remained stable Dental Care, Regularly: Yes Physical Activity Frequency: Daily Seatbelt Use: always Sunscreen Use: Yes Assistive Devices: Cane, Glasses and Walker Review of Systems Review of Systems: As per the HPI otherwise A 10 point review of systems has been obtained and is otherwise negative. Physical Exam Physical Exam: General: Alert. nontoxic. Skin: Warm, dry, Head: Atraumatic Ears, nose, mouth and throat: airway patent Cardiovascular: Normal peripheral perfusion, irregularly irregular rhythm, mild tachycardia Respiratory: no respiratory distress Gastrointestinal: Non distended, no hepatosplenomegaly, mild tenderness in the mid epigastric region with deep palpation, no guarding no rebound negative Rosvig's negative obturator Musculoskeletal: No deformity Results & Data Results & Data Vital Signs (Past 12 Hours) Vital Signs Temp Pulse Resp BP Pulse Ox O2 Del Method 01/06/23 14:00 110 H 18 141/102 H 99 Room Air 01/06/23 13:30 115 H 20 139/109 H 94 01/06/23 12:53 117 H 01/06/23 12:31 118 H 22 159/75 H 96 Room Air 01/06/23 12:00 117 H 22 140/80 95 01/06/23 11:30 117 H 23 148/98 H 96 Room Air 01/06/23 11:00 119 H 26 H 142/98 H 96 Room Air 01/06/23 10:30 123 H 23 143/100 H 97 Room Air 01/06/23 09:14 140 H 18 128/84 95 Room Air 01/06/23 08:58 156 H 01/06/23 08:44 36.2 C L 110 H 20 98/63 L 93 Room Air Critical Care Results & Data Vital Signs (Past 12 Hours) Vital Signs Temp Pulse Resp BP Pulse Ox O2 Del Method 01/06/23 14:00 110 H 18 141/102 H 99 Room Air 01/06/23 13:30 115 H 20 139/109 H 94 01/06/23 12:53 117 H 01/06/23 12:31 118 H 22 159/75 H 96 Room Air 01/06/23 12:00 117 H 22 140/80 95 01/06/23 11:30 117 H 23 148/98 H 96 Room Air 01/06/23 11:00 119 H 26 H 142/98 H 96 Room Air 01/06/23 10:30 123 H 23 143/100 H 97 Room Air 01/06/23 09:14 140 H 18 128/84 95 Room Air 01/06/23 08:58 156 H 01/06/23 08:44 36.2 C L 110 H 20 98/63 L 93 Room Air Lab & Micro Results (Past 24 Hours) RBC 5.47 M/uL (4.70-6.10) 01/06/23 WBC 13.13 K/ul (4.8-10.8) H 01/06/23 Hgb 16.2 g/dl (14.0-18.0) 01/06/23 Hct 50.3 % (42.0-52.0) 01/06/23 MCV 92.0 fL (80.0-100.0) 01/06/23 MCH 29.6 pg (25.0-34.0) 01/06/23 MCHC 32.2 g/dL (32.0-36.0) 01/06/23 RDW Standard Deviation 49.9 fL (36.4-46.3) H 01/06/23 RDW Coefficient of Variation 14.6 % (11.5-14.5) H 01/06/23 Plt Count 289 K/uL (130-400) 01/06/23 MPV 9.6 fL (9.4-12.4) 01/06/23 Neutrophils (%) (Auto) 88.6 % 01/06/23 Lymphocytes (%) (Auto) 4.6 % 01/06/23 Monocytes # (Auto) 0.82 K/uL (0.11-0.59) H 01/06/23 Eosinophils # (Auto) 0.00 K/uL (0.00-0.50) 01/06/23 Immature Granulocyte % (Auto) 0.4 % 01/06/23 Neutrophils # (Auto) 11.62 K/uL (1.40-6.50) H 01/06/23 Lymphocytes # (Auto) 0.61 K/uL (1.20-3.40) L 01/06/23 Monocytes # (Auto) 0.82 K/uL (0.11-0.59) H 01/06/23 Eosinophils # (Auto) 0.00 K/uL (0.00-0.50) 01/06/23 Basophils # (Auto) 0.03 K/uL (0.00-0.20) 01/06/23 Immature Granulocyte # (Auto) 0.05 K/uL (0.01-0.20) 3 Na 137 mmol/L (136-145) 01/06/23 K 3.6 mmol/L (3.5-5.1) 01/06/23 Cl 101 mmol/L (98-107) 01/06/23 CO2 24 mmol/L (21-32) 01/06/23 Anion Gap 12 (3-11) H 01/06/23 BUN 20 mg/dl (6-23) 01/06/23 Creatinine 0.87 mg/dl (0.6-1.4) 01/06/23 Estimated GFR ( Amer) 97.8 ml/min 01/06/23 Estimated GFR (Non-Af Amer) 84.4 ml/min 01/06/23 BUN/Creatinine Ratio 23.0 (10-20) H 01/06/23 Glu 123 mg/dl (70-99(Fasting)) H 01/06/23 Ca 9.2 mg/dl (8.6-10.3) 01/06/23 Total Bilirubin 1.7 mg/dl (0.2-1.0) H 01/06/23 Direct Bilirubin 0.5 mg/dl (0-0.2) H 01/06/23 AST 21 U/L (13-39) 01/06/23 ALT 18 U/L (7-52) 01/06/23 Alkaline Phosphatase 58 U/L (34-104) 01/06/23 TP 7.1 gm/dl (6.0-8.3) 01/06/23 Albumin 3.9 gm/dl (3.4-5.0) 01/06/23 Mg 1.9 mg/dl (1.7-2.4) 01/06/23 09:13 Calcium Level 9.2 mg/dl (8.6-10.3) 01/06/23 09:13 Diagnostic Findings (Past 24 Hours) Abdomen/Pelvis CT 01/06/23 09:16 CT abd pelvis IV con only CLINICAL HISTORY: abd pain, diarrhea TECHNIQUE: Helical axial images of the abdomen and pelvis were obtained and displayed. Automated dose lowering techniques and/or adjustment according to patient size were utilized for this exam. This exam was performed with intravenous contrast. CT DOSE: 1340.26 mGy.cm COMPARISON: Comparison is made to CT abdomen pelvis 03/13/2021 FINDINGS: Lower chest: Bibasilar atelectasis versus scarring is seen. Liver: Unremarkable. No focal lesions are seen. Gallbladder and biliary tree: No calcified gallstones. Normal caliber wall. No intra- or extrahepatic biliary ductal dilation. Pancreas: Unremarkable, no focal lesions. Spleen: Unremarkable. Adrenals: Unremarkable. Kidneys and ureters: Right renal cyst is seen. Bladder: Unremarkable. Reproductive organs: Prostatomegaly is seen. Bowel: Diverticulosis is seen without evidence of diverticulitis. The appendix is normal. Lymph nodes Retroperitoneal: Subcentimeter lymph nodes are noted. Pelvic: Unremarkable. Mesenteric: Unremarkable. Peritoneum: Normal. Vessels: Atherosclerotic calcifications are seen. Abdominal wall: Bilateral fat-containing inguinal hernias are seen. Bones: Degenerative changes in the visualized spine. IMPRESSION: 1. No acute abnormality to explain diarrhea and fever and chills. 2. Diverticulosis without diverticulitis. 3. Prostatomegaly. ACT 112: Negative or not required by law. Electronically signed by: Huey Jalloh M.D. 01/06/2023 10:50 AM Chest X-Ray 01/06/23 09:16 SINGLE VIEW CHEST CLINICAL HISTORY: Sepsis. FINDINGS: An AP, portable, upright chest radiograph is compared to study dated 05/21/2022. Correlation is made with chest CT dated 08/23/2018. The examination is degraded by portable technique and apical lordotic positioning. The heart is enlarged. The pulmonary vasculature is noncongested. There is mild bibasilar scarring/atelectasis. No airspace consolidation or large pleural effusion is identified. No pneumothorax is seen. The skeletal structures are osteopenic. The bony thorax is grossly intact. IMPRESSION: Cardiomegaly with no active disease in the chest. ACT 112: Negative or not required by law. Electronically signed by: Jonny Cordoba M.D. 01/06/2023 9:58 AM I & O Totals 24 Hours 01/05/23 01/06/23 01/07/23 06:59 06:59 06:59 Intake Total 2119 Balance 2119 / 2119 Cumulative 01/06/23 08:33 thru 01/06/23 11:53 Intake Total 2119 Balance 2119 RT Ventilator Mngmt (Last Documented) Ventilator Ordered Settings Respiratory Rate 18 01/06/23 14:00 Ventilator - PT Measurements Respiratory Rate 18 Code Status & VTE Plan Code Status Had a discussion regarding cardiac arrest and current statistics. Family reports they do have a living will and would not want heroic measures undertaken in event of end-stage terminal condition. Upon nuanced discussion he would not want heroic measures undertaken in event of cardiac arrest. PG Care Time/CCT Total # of Minutes Spent Total Time Spent with Patient: Total time spent is greater than 50% in coordination of care (as documented) at patient's floor/unit and/or counseling patient: Coding Level of Care Code 63268 INT INP/OBS CARE 3/75MIN Diagnoses Atrial fibrillation with RVR I48.91 Dehydration E86.0 COPD (chronic obstructive pulmonary disease) J44.9 Bilateral pulmonary embolism I26.99 Elevated troponin R74.8
[2023-01-06 15:32] LABS: Adenovirus F 40/41 PCR Not Detected (NotDetected); Astrovirus PCR Not Detected (NotDetected); Campylobacter PCR Not Detected (NotDetected); Cryptosporidium PCR Not Detected (NotDetected); Cyclospora cayetanensis PCR Not Detected (NotDetected); Entamoeba histolytica PCR Not Detected (NotDetected); Enteroaggregative E.coli(EAEC) Not Detected (NotDetected); Enteropathogenic E.coli (EPEC) Not Detected (NotDetected); Enterotoxigenic E.coli (ETEC) Not Detected (NotDetected); Giardia lamblia PCR Not Detected (NotDetected); Norovirus GI/GII PCR Not Detected (NotDetected); Plesiomonas shigelloides PCR Not Detected (NotDetected); Rotavirus A PCR Not Detected (NotDetected); Salmonella PCR Not Detected (NotDetected); Sapovirus PCR Not Detected (NotDetected); Shiga-like Toxin E.coli (STEC) Not Detected (NotDetected); Shigella/Enteroinvasive E.coli Not Detected (NotDetected); Vibrio cholerae PCR Not Detected (NotDetected); Vibrio species PCR Not Detected (NotDetected); Yersinia enterocolitica PCR Not Detected (NotDetected)
[2023-01-06] MEDS ORDERED: IPRATROPIUM BROMIDE HFA INHALER INH PRN (16:20)
[2023-01-06] MEDS ORDERED: POLYETHYLENE (MIRALAX) 17 GM PACK PO PRN (16:20)
[2023-01-06] MEDS ORDERED: traMADol HCL 50 MG TABLET PO PRN (16:20)
[2023-01-06 16:27] LABS: Appearance Urine Clear (Clear); Bacteria Urine Automated Negative (Negative); Bilirubin Urine Negative (Negative); Blood Urine 2+ (Negative); Color Urine Yellow; Epithelial Cell Urine Auto >30 /lpf (0-5); Glucose Urine UA Negative (Negative); Ketones Urine 1+ (Negative); Leukocyte Esterase Urine Negative (Negative); Nitrite Urine Negative (Negative); Protein Urine 2+ (Negative); Specific Gravity Urine > 1.045 (1.000-1.030); Urobilinogen Urine Negative (Negative); pH Urine 5.5 (4.5-7.5)
[2023-01-06] MEDS ORDERED: METOPROLOL TARTRATE 1 MG/ML VIAL IV PRN (18:48)
[2023-01-06] MEDS ORDERED: DIGOXIN 250 MCG in SYRINGE 9 ML IV STA (18:52)
[2023-01-06] MEDS: traMADol HCL 50 MG TABLET PO SCH (21:01)
[2023-01-06] MEDS: METOPROLOL SUCC 50MG EXT REL TAB PO SCH (21:02)
[2023-01-06] MEDS: GABAPENTIN 300 MG CAP PO SCH (21:02)
[2023-01-07] MEDS ORDERED: DIGOXIN 250 MCG in SYRINGE 9 ML IV ONE
[2023-01-07] MEDS: SODIUM CHLORIDE 0.9% 1,000 ML IV SCH ×3 (03:09→22:57)
[2023-01-07] MEDS ORDERED: LOPERAMIDE HCL 2 MG CAP PO STA ×2 (05:04→16:57)
[2023-01-07] MEDS ORDERED: SIMETHICONE 80 MG CHEW PO ONE (05:04)
[2023-01-07] MEDS: LEVOTHYROXINE SODIUM 150 MCG TABLET PO SCH (05:30)
--- NOTE | 2023-01-07 07:40 | Hospitalist Progress Note ---
Date of Service January 07, 2023 Assessment & Plan (1) Atrial fibrillation with RVR: Plan: Atrial fibrillation and rapid ventricular response likely secondary to dehydration -Continue metoprolol, converted with electrolyte replacement and digoxin. If RVR does recur cardiology is recommending to go with diltiazem 30 3 times daily initially Elevated troponin likely secondary to type II AR or demand ischemia -Recheck troponin did not go up clinical dehydration from diarrhea -Continue normal saline at 125 mL/h -holding lisinopril -Leukocytosis -Stool studies and C. difficile pending as sample was not produced Chronic pain and reported neuropathy -Continue gabapentin History of chronic venous thromboembolism -Continue systemic anticoagulation with rivaroxaban COPD chronic and stable -Continue home inhalers Hypertension -Hold lisinopril in setting of ASHLEY, determine if can reinstitute based upon his blood pressure response to rate controlling agents Hyperlipidemia -Continue ezetimibe 10 mg Anemia: At baseline -Previously receiving IV iron, currently on iron supplementation DVT prophylaxis: Rivaroxaban Code Status: DNR in event of cardiac arrest (2) Dehydration: (3) COPD (chronic obstructive pulmonary disease): (4) Bilateral pulmonary embolism: (5) Elevated troponin: Admission and Anticipated Discharge Date Admission Date: January 06, 2023 Subjective patient feels improved he is not aware of his palpitations when he does have RVR with his atrial fibrillation it is difficult to tell whether he is been told due to A-fib in the past at one point time his felt he was diagnosed with A-fib by cardiology as an outpatient office although there is no defined record of this subsequently the patient will be rate controlled medications he is currently anticoagulated with Xarelto he was seen in consultation by cardiology fortunately he converted to sinus rhythm prior to them seeing him and they recommend that if he reverts to atrial for bar VR to institute Cardizem therapy in addition to his metoprolol Physical Exam Physical Exam: card exam is irregularly irregular heart rate he has somewhat 1+ lower extremity edema his lungs however are clear Results & Data Results & Data Vital Signs (Past 12 Hours) Vital Signs Temp Pulse Pulse Resp BP Pulse Ox O2 Del Method 01/07/23 04:00 98.6 F 91 H 18 134/82 95 Room Air 01/07/23 00:41 133 H 01/07/23 00:13 120 H 01/06/23 23:00 98.8 F 122 H 18 138/95 93 Room Air Laboratory Results reviewed CBC reviewed chemistry discussed case with cardiology PG Care Time/CCT Total # of Minutes Spent Total Time Spent with Patient: Total time spent is greater than 50% in coordination of care (as documented) at patient's floor/unit and/or counseling patient: Coding Level of Care Code 57146 SUB INP/OBS CARE 2/35MIN Diagnoses Atrial fibrillation with RVR I48.91 Dehydration E86.0 COPD (chronic obstructive pulmonary disease) J44.9 Bilateral pulmonary embolism I26.99 Elevated troponin R74.8
[2023-01-07 09:04] LABS: Basophils # (auto) 0.03 K/uL (0.00-0.20); Basophils % (auto) 0.5 %; Eosinophils # (auto) 0.01 K/uL (0.00-0.50); Eosinophils % (auto) 0.2 %; Hematocrit (blood only) 44.1 % (42.0-52.0); Hemoglobin 13.9 g/dl (14.0-18.0); Immature Granulocytes # (auto) 0.03 K/uL (0.01-0.20); Immature Granulocytes % (auto) 0.5 %; Lymphocytes # (auto) 0.71 K/uL (1.20-3.40); Lymphocytes % (auto) 11.6 %; Mean Corpuscular Hemoglobin 29.4 pg (25.0-34.0); Mean Corpuscular Hgb Conc 31.5 g/dL (32.0-36.0); Mean Corpuscular Volume 93.2 fL (80.0-100.0); Mean Platelet Volume 9.4 fL (9.4-12.4); Monocytes % (auto) 14.7 %; Neutrophils # (auto) 4.45 K/uL (1.40-6.50); Neutrophils % (auto) 72.5 %; Platelet Count 301 K/uL (130-400); RDW Coefficient of Variation 14.5 % (11.5-14.5); RDW Standard Deviation 50.1 fL (36.4-46.3); Red Blood Count 4.73 M/uL (4.70-6.10); White Blood Count 6.13 K/ul (4.8-10.8)
[2023-01-07] MEDS: PANTOprazole 40 MG TAB PO SCH (09:18)
[2023-01-07] MEDS: METOPROLOL SUCC 50MG EXT REL TAB PO SCH ×2 (09:18→23:01)
[2023-01-07] MEDS: EZETIMIBE 10 MG TAB PO SCH (09:18)
[2023-01-07] MEDS: FLUTICASONE/VILANTEROL 200/25MCG 14 PUFFS/INHALER INH SCH (09:19)
[2023-01-07] MEDS: CYANOCOBALAMIN (B-12) 500 MCG TABLET PO SCH (09:19)
[2023-01-07] MEDS: FAMOTIDINE 40 MG TABLET PO SCH (09:19)
[2023-01-07 09:47] LABS: Albumin Level 3.6 gm/dl (3.4-5.0); BUN Creatinine Ratio 28.1 (10-20); Bilirubin Direct 0.2 mg/dl (0-0.2); Calcium 8.3 mg/dl (8.6-10.3); Creatinine Clr Calc Pharmacy 107.1 ml/min; Est GFR (Non-African American) 95.8 ml/min; Magnesium 1.8 mg/dl (1.7-2.4); Phosphorus 2.3 mg/dl (2.5-4.9); Potassium 3.6 mmol/L (3.5-5.1); Total Protein 6.7 gm/dl (6.0-8.3); Troponin I High Sensitivity 22.1 pg/ml (0-20)
[2023-01-07] MEDS ORDERED: DIGOXIN 250 MCG in SYRINGE 9 ML IV STA (10:28)
[2023-01-07] MEDS ORDERED: MAGNESIUM SULFATE / D5W 1 GM/100 ML BAG IV ONE (11:29)
[2023-01-07] MEDS: CEROVITE ADV FORMULA TAB PO SCH (11:30)
[2023-01-07] MEDS ORDERED: RIVAROXABAN 20 MG TAB PO SCH (16:30)
--- NOTE | 2023-01-07 16:36 | Cardiology Consultation ---
Date of Consultation January 07, 2023 Assessment & Plan (1) Paroxysmal atrial fibrillation: (2) Elevated troponin: (3) Hypertension: Plan ASSESSMENT/PLAN: 1. Paroxysmal atrial fibrillation: Possibly symptomatic with mild palpitations at times. Seems to be a new diagnosis for him. May have been prompted by his GI illness on presentation. TSH is pending. Already anticoagulated chronically for recurrent DVT/PE. Continue home dose of beta-mary ellen. Currently in sinus rhythm. Given normal renal function, could use diltiazem 30 mg p.o. every 6 hours in addition to beta-mary ellen for rate control if he should have recurrence. Also discussed antiarrhythmic therapy as an option if rate control strategy fails. If issues with hypotension on diltiazem, could also use digoxin 125 mcg p.o. daily. Diagnosis discussed with him in detail. Echo ordered. Repeat ECG now that in sinus. 2. Elevated troponin: Likely due to demand ischemia in the setting of acute GI issues (vomiting/diarrhea), hypovolemia, and A-fib with RVR. Ischemic evaluation not necessary at this time. 3. Hypertension: Blood pressure has been mostly normotensive today and hypertensive yesterday. Plan as above. 4. Disposition: Patient care discussed with Dr. Johns of the primary hospitalist service. Please call with any other questions or concerns. Follow- up in the outpatient setting with Ko Mehta, his cardiology provider. We will arrange 30-day outpatient event monitor to evaluate A-fib burden. Thank you for allowing me to participate in the care of your patient. Please call for any other questions or concerns. Sincerely, Suleman Sharpe M.D. History of Present Illness Reason for Consultation: Atrial fibrillation Requesting Physician: Syed Garcia MD Attending Physician: Syed Garcia MD History of Present Illness Mr. Landry is a pleasant 77-year-old gentleman with a history significant for COPD, dyslipidemia, recurrent DVT/pulmonary emboli, and anemia who was admitted on 01/06/2023 with diarrhea, nausea, and vomiting. On presentation, he was noted to be in atrial fibrillation with rapid ventricular response, which appears to be a new diagnosis for him. He typically takes 150 mg of metoprolol twice daily in the outpatient setting. While here, he was also given 5 mg of IV metoprolol x1 and intravenous digoxin 250 mcg x 3. He converted to sinus rhythm at approximately 0051 on 01/07/2023 only to revert back to atrial fibrillation at approximately 9:15 AM. When he was seen this afternoon, he was actually back in sinus rhythm with PACs. He admits that he has palpitations chronically on occasion, most notable when laying down in bed, approximately once per week. Symptoms last only a few minutes before subsiding. He denies chest pain, shortness of breath, syncope, near syncope, edema, or bleeding. He has lower abdominal pain bilaterally and vomited earlier in the week before he presented to the hospital. His diarrhea is improved but still occurring. He does not recall any recent ill contacts. He denies a history of stroke, TIA, CHF, diabetes. Review of systems: As above. Review of systems otherwise negative/unremarkable. Family history: Mother had rheumatic heart disease (mitral valve stenosis). No known premature CAD. Social history: Quit smoking 54 years ago. Denies alcohol or drug abuse. Lives at home with his . 3 adult children. 3 grandchildren. His was present at the bedside. Allergies Allergy/AdvReac Type Severity Reaction Status Date / Time Sulfa (Sulfonamide Allergy Severe Anaphylaxis Verified 12/28/22 12:59 Antibiotics) A CHILD trimethoprim Allergy Severe Anaphylaxis- Verified 12/28/22 12:59 A CHILD adhesive Allergy Intermediate TAPE-SKIN Verified 12/28/22 12:59 IRRITATION clonidine Allergy Intermediate EDEMA/HIVES Verified 12/28/22 12:59 meperidine Allergy Intermediate SWELLING Verified 12/28/22 12:59 ondansetron Allergy Intermediate swelling Verified 12/28/22 12:59 codeine Allergy Mild RASH/Itchin Verified 12/28/22 12:59 g zoster vaccine live Allergy Unknown Unknown Verified 12/28/22 12:59 Home Medications Medication Instructions Recorded Confirmed Type cyanocobalamin (vitamin B-12) 1,000 mcg PO QDL 02/15/19 01/06/23 History 1,000 mcg tablet (Vitamin B-12) ipratropium bromide 17 1 puff inhalation Q6H PRN 11/26/19 01/06/23 Rx mcg/actuation HFA aerosol inhaler Shortness Of Breath Or Wheezing (Atrovent HFA) #12.9 grams lykufsbxdrqh-vbwssdpk-iabjir tablet 1 tab PO QDL 12/19/20 01/06/23 History ezetimibe 10 mg tablet (Zetia) 10 mg PO QDL 04/22/22 01/06/23 History gabapentin 300 mg capsule 600 mg PO HS 04/22/22 01/06/23 History levothyroxine 150 mcg capsule 150 mcg PO QAM 04/22/22 01/06/23 History lisinopril 20 mg tablet 20 mg PO HS 04/22/22 01/06/23 History polyethylene glycol 3350 17 gram 17 g PO DAILY PRN constipation #5 06/10/22 01/06/23 Rx oral powder packet (Miralax) ea ferrous sulfate 325 mg (65 mg 325 mg PO DAILY 11/01/22 01/06/23 History iron) tablet fluticasone 250 mcg-salmeterol 50 1 inh inhalation BID #60 ea 11/08/22 01/06/23 Rx mcg/dose blistr powdr for inhalation (Advair Diskus) amoxicillin 500 mg tablet 500 mg PO QID PRN Dental Procedures 12/01/22 01/06/23 History metoprolol succinate 100 mg 150 mg PO BID 12/01/22 01/06/23 History tablet,extended release 24 hr rivaroxaban 20 mg tablet (Xarelto) 20 mg PO QAM #30 tabs 12/13/22 01/06/23 Rx tramadol 50 mg tablet 50 mg PO Q6H PRN pain #120 tabs 12/30/22 01/06/23 Rx famotidine 40 mg tablet 40 mg PO DAILY 01/06/23 01/06/23 History gabapentin 300 mg capsule 600 mg PO USEASDIRECTD 01/06/23 01/06/23 History nitrofurantoin See Rx Instructions .Route .COMPLEX 01/06/23 01/06/23 History monohydrate/macrocrystals 100 mg capsule (Macrobid) pantoprazole 40 mg tablet,delayed 40 mg PO DAILY 01/06/23 01/06/23 History release Patient History Medical History (Updated 01/07/23 @ 17:10 by Jewel Sharpe MD) Anemia Asthma Stable Bilateral pulmonary embolism 08/2018 (unknown etiology) Cervicalgia Chronic lower back pain Degenerative disc disease Dysmetabolic syndrome X GERD (gastroesophageal reflux disease) History of benign thyroid tumor History of DVT (deep vein thrombosis) 12/2017 LLE - treated w/ AC x 6 months (unknown etiology) 08/2017 RLE after stopping xarelto History of MRSA infection MRSA in right knee treated in 2001 (Anna at surgeon's office made aware) History of pulmonary embolism Bilateral in 08/2018, unknown etiology. History of squamous cell carcinoma Hyperlipidemia Hypertension Hypothyroidism Kidney stones Osteoarthritis Paroxysmal atrial fibrillation Prediabetes diet controlled Spinal stenosis Surgical History History of arthroscopy of left knee History of arthroscopy of right knee History of colonoscopy Colonoscopy/EGD (for anemia evaluation- 04/29/22): [facility] at [facility] History of esophagogastroduodenoscopy (EGD) History of fusion of cervical spine restricted ROM from side to side per pt History of hand surgery Left History of hernia repair Left abdominal History of shoulder surgery Left History of shoulder surgery Right x3 (+ hardware) History of squamous cell carcinoma excision History of surgery Left biceps tendon repair History of total thyroidectomy Nausea and vomiting after administration of anesthetic agent S/P rotator cuff repair Family History Brother Family history of diabetes mellitus Sister Family history of diabetes mellitus Grandmother (Maternal) Myocardial infarction Father Prostate cancer Mother Family history of reaction to anesthesia nausea/vomiting Brother Family history of diabetes mellitus Sister Family history of diabetes mellitus Denies family history of Ovarian cancer Breast cancer Colorectal cancer Social History Smoking Status: Former smoker Tobacco Type: Cigarettes Age Started Using Tobacco: 22; Age Quit Using Tobacco: 24; Second Hand Exposure: No; Do You Dip or Chew Tobacco: No; Hx Alcohol Use: No Hx Substance Use: No Preferred Language: Turkish Communication Ability: Effective Visual Impairment: No Limitations Hearing Ability: Normal Wood Handler Required: No Beliefs That Will Affect Care: None marital status: Current Living Situation: Spouse current occupational status: retired How many Children do You have: 3 Feels Safe at Home: Yes Childhood Exposure to Second-Hand Smoke: No Diet: regular caffeine: No during the past year weight has: remained stable Dental Care, Regularly: Yes Physical Activity Frequency: Daily Seatbelt Use: always Sunscreen Use: Yes Assistive Devices: Cane Physical Exam Physical Exam: Gen.: No acute distress. Alert and oriented. HEENT: Anicteric sclera. Neck: No JVD. No bruits. Normal carotid upstrokes bilaterally. Cardiac: No ventricular heave. Regular with ectopy. Normal rate. Normal S1-S2. No murmurs, rubs, or gallops. Pulmonary: Clear to auscultation bilaterally without wheezes, rales, or rhonchi. Abdomen: Soft, nondistended. No bruits noted. Extremities: 2+ radial pulses bilaterally. 2+ posterior tibialis pulses bilaterally. Trace bilateral lower extremity edema. No cyanosis. Psychiatric: Affect appears appropriate. Results & Data Vital Signs (Past 12 Hours) Vital Signs Temp Pulse Pulse Resp BP BP Pulse Ox 01/07/23 15:43 36.6 C 86 20 138/85 97 01/07/23 08:00 140 H 01/07/23 10:25 115 H 138/79 01/07/23 10:10 130 H 119/75 O2 Del Method 01/07/23 15:43 Room Air 01/07/23 08:00 01/07/23 10:25 01/07/23 10:10 Laboratory Results Laboratory Results - last 24 hr 01/06/23 01/07/23 01/07/23 16:54 08:40 08:40 WBC 6.13 RBC 4.73 Hgb 13.9 L Hct 44.1 MCV 93.2 MCH 29.4 MCHC 31.5 L RDW Std Deviation 50.1 H RDW Coeff of Bindu 14.5 Plt Count 301 MPV 9.4 Immature Gran % (Auto) 0.5 Neut % (Auto) 72.5 Lymph % (Auto) 11.6 Kingman % (Auto) 14.7 Eos % (Auto) 0.2 Baso % (Auto) 0.5 Neut # (Auto) 4.45 Lymph # (Auto) 0.71 L Kingman # (Auto) 0.90 H Eos # (Auto) 0.01 Baso # (Auto) 0.03 Immature Gran # (Auto) 0.03 Sodium 140 Potassium 3.6 Chloride 109 H Carbon Dioxide 24 Anion Gap 7 BUN 18 Creatinine 0.64 Est Cr Clr Drug Dosing 107.1 Est GFR ( Amer) 111.0 Est GFR (Non-Af Amer) 95.8 BUN/Creatinine Ratio 28.1 H Glucose 92 Lactate 1.6 Calcium 8.3 L Phosphorus 2.3 L Magnesium 1.8 Total Bilirubin 1.0 D Direct Bilirubin 0.2 AST 21 ALT 21 Alkaline Phosphatase 45 Troponin I High Sens 22.1 H D Total Protein 6.7 Albumin 3.6 Lipase 12 Diagnostic Findings Telemetry personally reviewed as noted above in HPI. ECG personally reviewed 01/06/2023: A-fib with RVR [address]/T wave abnormality. Echo 08/24/2018: Normal LV systolic function. EF 55 to 60%. Mild LVH. No significant valvular abnormalities. Elevated RVSP. Echo done for bilateral pulmonary emboli. Labs reviewed and notable for slight anemia, normal kidney function, normal magnesium, high-sensitivity troponin slightly elevated at 34 on admission and trending downward. Elevated procalcitonin. CT abdomen/pelvis 01/06/2023: No acute abnormality to explain diarrhea. Diverticulosis without diverticulitis. Chest x-ray 3123: No active disease in the chest. Chest x-ray image personally reviewed: No infiltrate. No pleural effusion appreciated. Medications Administered Current Inpatient Medications Cyanocobalamin (Cyanocobalamin (B-12) 500 Mcg Tablet) 1,000 mcg PO QDL [facility] Stop: 02/06/23 11:29 Last Admin: 01/07/23 09:19 Dose: 1,000 mcg Ezetimibe (Ezetimibe 10 Mg Tab) 10 mg PO QDL [facility] Stop: 02/06/23 11:29 Last Admin: 01/07/23 09:18 Dose: 10 mg Famotidine (Famotidine 40 Mg Tablet) 40 mg PO DAILY [facility] Stop: 02/06/23 08:59 Last Admin: 01/07/23 09:19 Dose: 40 mg Fluticasone/Vilanterol (Fluticasone/Vilanterol 200/25mcg 14 Puffs/Inhaler) 1 puffs INH DAILY [facility]; Protocol Stop: 02/06/23 08:59 Last Admin: 01/07/23 09:19 Dose: 1 puffs Gabapentin (Gabapentin 300 Mg Cap) 600 mg PO DAILY@1700 [facility] Stop: 02/05/23 16:59 Last Admin: 01/06/23 21:02 Dose: 600 mg Sodium Chloride (Nss 1000ml) 1,000 mls @ 125 mls/hr IV .Q8H [facility] Stop: 02/05/23 12:29 Last Admin: 01/07/23 13:15 Dose: 125 mls/hr Ipratropium Houck (Ipratropium Houck Hfa Inhaler) 1 puffs INH Q6H PRN PRN Reason: Shortness Of Breath Or Wheezing Stop: 02/05/23 16:19 Levothyroxine Sodium (Levothyroxine Sodium 150 Mcg Tablet) 150 mcg PO DAILYBB [facility] Stop: 02/06/23 06:29 Last Admin: 01/07/23 05:30 Dose: 150 mcg Metoprolol Succinate (Metoprolol Succ 50mg Ext Rel Tab) 150 mg PO BID [facility] Stop: 02/05/23 20:59 Last Admin: 01/07/23 09:18 Dose: 150 mg Metoprolol Tartrate (Metoprolol Tartrate 1 Mg/Ml Vial) 5 mg IV Q4H PRN PRN Reason: sbp > 185, dbp >95, HR >120 Stop: 02/05/23 18:47 Last Admin: 01/07/23 10:10 Dose: 5 mg Multivitamins/Minerals (Cerovite Adv Formula Tab) 1 tab PO QDL [facility] Stop: 02/06/23 11:29 Last Admin: 01/07/23 11:30 Dose: 1 tab Pantoprazole Sodium (Pantoprazole 40 Mg Tab) 40 mg PO DAILY [facility] Stop: 02/06/23 08:59 Last Admin: 01/07/23 09:18 Dose: 40 mg Polyethylene Glycol (Polyethylene (Miralax) 17 Gm Pack) 17 gm PO DAILY PRN PRN Reason: constipation Stop: 02/05/23 16:19 Rivaroxaban (Rivaroxaban 20 Mg Tab) 20 mg PO DAILY@1630 [facility] Stop: 02/06/23 16:29 Tramadol HCl (Tramadol Hcl 50 Mg Tablet) 50 mg PO Q6H PRN PRN Reason: pain Stop: 02/05/23 16:19 Tramadol HCl (Tramadol Hcl 50 Mg Tablet) 50 mg PO HS [facility] Stop: 02/05/23 20:59 Last Admin: 01/06/23 21:01 Dose: 50 mg PG Care Time/CCT Total # of Minutes Spent Total Time Spent with Patient: Total time spent is greater than 50% in coordination of care (as documented) at patient's floor/unit and/or counseling patient: Coding Level of Care Code 66259 INT INP/OBS CARE 2/55MIN Diagnoses Paroxysmal atrial fibrillation I48.0 Elevated troponin R77.8 Hypertension I10
[2023-01-07] MEDS ORDERED: PSYLLIUM or GUAR GUM FIBER POWDER PACKET PO ONE (16:58)
[2023-01-07] MEDS: GABAPENTIN 300 MG CAP PO SCH (18:01)
[2023-01-07] MEDS ORDERED: LOPERAMIDE HCL 2 MG CAP PO SCH (21:00)
[2023-01-07] MEDS: traMADol HCL 50 MG TABLET PO SCH (22:57)
[2023-01-08] MEDS: LEVOTHYROXINE SODIUM 150 MCG TABLET PO SCH (05:05)
[2023-01-08] MEDS: SODIUM CHLORIDE 0.9% 1,000 ML IV SCH (06:47)
[2023-01-08 07:05] LABS: Basophils # (auto) 0.05 K/uL (0.00-0.20); Basophils % (auto) 0.8 %; Eosinophils # (auto) 0.03 K/uL (0.00-0.50); Eosinophils % (auto) 0.5 %; Hematocrit (blood only) 37.9 % (42.0-52.0); Hemoglobin 12.3 g/dl (14.0-18.0); Immature Granulocytes # (auto) 0.04 K/uL (0.01-0.20); Immature Granulocytes % (auto) 0.6 %; Lymphocytes # (auto) 1.07 K/uL (1.20-3.40); Lymphocytes % (auto) 16.2 %; Mean Corpuscular Hemoglobin 29.6 pg (25.0-34.0); Mean Corpuscular Hgb Conc 32.5 g/dL (32.0-36.0); Mean Corpuscular Volume 91.1 fL (80.0-100.0); Mean Platelet Volume 9.6 fL (9.4-12.4); Monocytes # (auto) 0.86 K/uL (0.11-0.59); Monocytes % (auto) 13.1 %; Neutrophils # (auto) 4.54 K/uL (1.40-6.50); Neutrophils % (auto) 68.8 %; Platelet Count 293 K/uL (130-400); RDW Coefficient of Variation 14.3 % (11.5-14.5); RDW Standard Deviation 48.1 fL (36.4-46.3); Red Blood Count 4.16 M/uL (4.70-6.10); White Blood Count 6.59 K/ul (4.8-10.8)
[2023-01-08 07:38] LABS: BUN Creatinine Ratio 21.9 (10-20); Calcium 7.8 mg/dl (8.6-10.3); Creatinine Clr Calc Pharmacy 108.1 ml/min; Est GFR (Non-African American) 95.8 ml/min; Magnesium 1.8 mg/dl (1.7-2.4); Potassium 3.3 mmol/L (3.5-5.1)
[2023-01-08] MEDS ORDERED: POTASSIUM CHLORIDE CRTAB 20 MEQ TABCR PO STA (08:06)
[2023-01-08] MEDS: EZETIMIBE 10 MG TAB PO SCH (08:30)
[2023-01-08] MEDS: PANTOprazole 40 MG TAB PO SCH (08:30)
[2023-01-08] MEDS: FLUTICASONE/VILANTEROL 200/25MCG 14 PUFFS/INHALER INH SCH (08:30)
[2023-01-08] MEDS: METOPROLOL SUCC 50MG EXT REL TAB PO SCH (08:30)
[2023-01-08] MEDS: FAMOTIDINE 40 MG TABLET PO SCH (08:30)
[2023-01-08] MEDS: CEROVITE ADV FORMULA TAB PO SCH (08:30)
[2023-01-08] MEDS: CYANOCOBALAMIN (B-12) 500 MCG TABLET PO SCH (08:30)
[2023-01-08] MEDS ORDERED: PSYLLIUM or GUAR GUM FIBER POWDER PACKET PO SCH (09:00)
[2023-01-08] MEDS ORDERED: dilTIAZem HCL 120 MG CAPCR PO SCH ×2 (10:15→10:30)
--- NOTE | 2023-01-08 10:34 | XCELERA ---
[id number] [id number]
--- NOTE | 2023-01-08 14:35 | Discharge Summary ---
Date of Service January 08, 2023 Admission HPI Per Admitting Provider Patient is a 77-year-old male with past medical history for anemia, chronic pain, chronic esophagitis, anemia receiving intermittent IV infusions, COPD, hyperlipidemia, systemic anticoagulation secondary to recurrent venous thromboemboli, atrial fibrillation who presents after a 2-day history of loose stools and black stools. It is associated with mid epigastric crampy abdominal pain without radiation. He is lightheaded when he stands up. He reports that he has had decreased oral intake able to eat only ice chips. He was nauseous x48 hours and vomited once 2 days ago. Does not report chest pain, dyspnea. There is dark stools, no hematochezia. Denies any sick contacts, no recent travel. Principal Diagnosis atrial fibrillation, conversion to NSR Discharge Exam awakew and alert, cardiac is regular no murmurs, lungs are clear Discharge Data Allergies Allergy/AdvReac Type Severity Reaction Status Date / Time Sulfa (Sulfonamide Allergy Severe Anaphylaxis Verified 12/28/22 12:59 Antibiotics) A CHILD trimethoprim Allergy Severe Anaphylaxis- Verified 12/28/22 12:59 A CHILD adhesive Allergy Intermediate TAPE-SKIN Verified 12/28/22 12:59 IRRITATION clonidine Allergy Intermediate EDEMA/HIVES Verified 12/28/22 12:59 meperidine Allergy Intermediate SWELLING Verified 12/28/22 12:59 ondansetron Allergy Intermediate swelling Verified 12/28/22 12:59 codeine Allergy Mild RASH/Itchin Verified 12/28/22 12:59 g zoster vaccine live Allergy Unknown Unknown Verified 12/28/22 12:59 Consultations 01/06/23 12:17 ED Decision to Admit Stat 01/07/23 12:05 Consult Cardiology Routine Ordered Studies 01/06/23 09:16 CT abd pelvis IV con only Stat Hospital Course (1) Atrial fibrillation with RVR: Atrial fibrillation and rapid ventricular response likely secondary to dehydration -Continue metoprolol, converted with electrolyte replacement and digoxin. will have home on cardizem in place of lisinopril, starting 120 ER in addition to the metoprolol Elevated troponin likely secondary to type II MT or demand ischemia -Recheck troponin did not go up clinical dehydration from diarrhea now resolved -Leukocytosis -Stool studies and C. difficile negative Chronic pain and reported neuropathy -Continue gabapentin History of chronic venous thromboembolism -Continue systemic anticoagulation with rivaroxaban, also useful in afib COPD chronic and stable -Continue home inhalers Hypertension -Held lisinopril in setting of ASHLEY, going home on metoprolol and cardizem Hyperlipidemia -Continue ezetimibe 10 mg Anemia: At baseline -Previously receiving IV iron, currently on iron supplementation Code Status: DNR in event of cardiac arrest (2) Dehydration: (3) COPD (chronic obstructive pulmonary disease): (4) Bilateral pulmonary embolism: (5) Elevated troponin: Total Time Total Time Spent Total Time Spent (In Minutes): greater than 30 minutes were required to prepare discharge Discharge Plan Discharge Items Patient Disposition: Home - Self-Care Reason For Visit: DEHYDRATION Discharge Diagnosis: atrial fibrillation Activity: Resume your previous activity Non-emergency contact: Primary Care Provider and Jewelry Facer Call non-emergency contact if: your symptoms worsen Follow-up/Referrals: Jaguar Renteria, [Primary Care Provider] - Diet: Regular Addtl Attending Provider Instructions: there will be a new medicine for you to help contorl your heart rate, please follow up with Ko Mehta Pending Studies at Discharge: No Stand-Alone Forms: [facility] Emotive, Smoking Cessation Medications and DC Order Prescriptions: New diltiazem HCl 120 mg capsule,extended release 24 hr 120 mg PO DAILY Qty: 30 6RF Continued fluticasone propion-salmeterol [Advair Diskus] 250-50 mcg/dose blister with device 1 inh inhalation BID Qty: 60 5RF Xarelto 20 mg tablet 20 mg PO QAM Qty: 30 5RF tramadol 50 mg tablet 50 mg PO Q6H PRN (Reason: pain) Qty: 120 0RF Rx Instructions: PER PT "NEEDS TO TAKE PRIOR TO BED". ferrous sulfate 325 mg (65 mg iron) tablet 325 mg PO DAILY Atrovent HFA 17 mcg/actuation HFA aerosol inhaler 1 puff INHALATION Q6H PRN (Reason: Shortness Of Breath Or Wheezing) Qty: 12.9 5RF Patient Comments: Uses rarely - only in very cold weather amoxicillin 500 mg tablet 500 mg PO QID PRN (Reason: Dental Procedures) metoprolol succinate 100 mg tablet extended release 24 hr 150 mg PO BID cyanocobalamin (vitamin B-12) [Vitamin B-12] 1,000 mcg Tablet 1,000 mcg PO QDL Patient Comments: pt takes at noon igkuzdcynczi-ndkwodta-hpodtj Tablet 1 tab PO QDL gabapentin 300 mg Capsule 600 mg PO HS ezetimibe [Zetia] 10 mg tablet 10 mg PO QDL Patient Comments: pt takes at noon levothyroxine 150 mcg capsule 150 mcg PO QAM polyethylene glycol 3350 [Miralax] 17 gram powder in packet 17 g PO DAILY PRN (Reason: constipation) Qty: 5 0RF famotidine 40 mg tablet 40 mg PO DAILY pantoprazole 40 mg tablet,delayed release (DR/EC) 40 mg PO DAILY gabapentin 300 mg capsule 600 mg PO USEASDIRECTD Rx Instructions: TAKE 2 CAPSULES BY MOUTH WITH DINNER nitrofurantoin monohyd/m-cryst [Macrobid] 100 mg capsule See Rx Instructions .ROUTE .COMPLEX Rx Instructions: per , he got sick on tuesday and hasn't finished the whole 10 day therapy. must administer with a meal/food Discontinued lisinopril 20 mg tablet 20 mg PO HS Discharge Orders: Discharge Order (Routine); Ordered 01/08/23 Ordered By: Syed Phan/Other Patient Handouts: AFib Admission Data Admit Date/Time: 01/06/23 14:37 Attending Provider: Syed Garcia Admit Provider: Khris Conde Primary Care Provider: Jaguar Renteria Other Providers: Edgardo Mendenhall ; Jewel Sharpe. Other Interventions: Discharge Summary Assessment (RN) Last Done: 01/08/23 13:02 Coding Level of Care Code 61569 INP/OBS DISCH >30 MIN Diagnoses Atrial fibrillation with RVR I48.91 Dehydration E86.0 COPD (chronic obstructive pulmonary disease) J44.9 Bilateral pulmonary embolism I26.99 Elevated troponin R74.8
--- NOTE | 2023-01-10 14:25 | Electrocardiogram Report ---
Test Reason : Blood Pressure : / mmHG Vent. Rate : 153 BPM Atrial Rate : 000 BPM P-R Int : 000 ms QRS Dur : 082 ms QT Int : 300 ms P-R-T Axes : 000 048 252 degrees QTc Int : 479 ms Atrial fibrillation with rapid ventricular response Abnormal ECG When compared with ECG of 21-MAY-2022 09:04, Atrial fibrillation has replaced Sinus rhythm Vent. rate has increased BY [address] now depressed in Inferior leads ST now depressed in Anterolateral leads T wave inversion now evident in Inferior leads T wave inversion now evident in Lateral leads Confirmed by Jewel Sharpe ([id number]) on 01/10/2023 2:24:35 PM Referred By: REFERRED SELF Confirmed By:Jewel Sharpe
--- NOTE | 2023-01-10 19:57 | Electrocardiogram Report ---
Test Reason : Blood Pressure : / mmHG Vent. Rate : 075 BPM Atrial Rate : 070 BPM P-R Int : 136 ms QRS Dur : 092 ms QT Int : 414 ms P-R-T Axes : 000 050 246 degrees QTc Int : 462 ms Sinus rhythm with Premature supraventricular complexes Cannot rule out Anterior infarct , age undetermined Abnormal ECG When compared with ECG of 06-JAN-2023 09:02, Sinus rhythm has replaced Atrial fibrillation Vent. rate has decreased BY 78 BPM Minimal criteria for Anterior infarct are now Present Confirmed by Jewel Sharpe ([id number]) on 01/10/2023 7:57:11 PM Referred By: REFERRED SELF Confirmed By:Jewel Sharpe
--- OUTSIDE RECORDS SUMMARY | 2023-01-13 11:13 | External Medical Summary | Summary of Care ---
Author Name Unknown Organization [place] [address] Care Team Providers Care Bead Machine Operator Name Role Phone Bony Zurita MD Primary Care Provider [phone] Encounter Details Date Type Department Care Team Description 10/30/2019 Orders Only Unspecified Department Case, Angel Barry DO [address] [address] [phone] Allergies Active Allergy Reactions Severity Noted Date Comments Adhesive Tape 07/13/2007 Certain bandages cause skin blisters and peels Clonidine Derivatives Edema Other 07/13/2007 Generalized swelling Codeine 04/05/2012 Rash Demerol 08/24/2007 Hives when given with zofran Oxycodone 04/05/2012 Itching Sulfa Antibiotics Other (Please comment) 2007 Repiratory distress per parents Zofran 08/24/2007 Hives when given with demerol Zoster Vaccine Live Other (Please comment) 02/06 Uses steroids often documented as of this encounter (statuses as of 10/30/2019) Medications Medication Sig Dispensed Refills Start Date End Date Status CENTRUM SILVER PO TABS 1 TABLET DAILY 0 Active VITAMIN B-12 1000 MCG PO TABS once a day 0 Active SYNTHROID 175 MCG OR TABS One tablet daily 0 07/17/2013 Active PANTOPRAZOLE SODIUM 40 MG PO TBEC One tablet daily 0 04/26/2013 Activ e ADVAIR DISKUS 250-50 MCG/DOSE IN AEPB One puff twice a day 0 07/04/2013 Active TRAMADOL HCL 50 MG PO TABS One tablet five times a day 0 Active ZETIA 10 MG PO TABS One tablet daily 0 Active GABAPENTIN 300 MG PO CAPS One capsule twice a day [address] ARTHRITIS PAIN 500 MG PO TABS One tablet with the tramadol four times a day 0 Active amLODIPine (NORVASC) 5 MG Tablet 0 Active lisinopril (PRINIVIL) 20 MG Tablet Take 20 mg by mouth daily. 0 Active rivaroxaban (XARELTO) 15 MG TabletIndications:15 mg twice daily for 21 days; then 20 mg once daily Take 15 mg by mouth daily. 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 Goiter 07/13/2007 documented as of this encounter (statuses as of 10/30/2019) Social History Tobacco Use Types Packs/Day Years Used Date Former Smoker Cigarettes 0.5 2 Quit: 07/05 Smokeless Tobacco: Never Used Alcohol Use Drinks/Week oz/Week Comments No Sex Assigned at Date Recorded Not on file Job Start Date Occupation Industry Not on file Not on file Not on file Travel History Travel Start Travel End documented as of this encounter Plan of Treatment Pending Results Name Type Priority Associated Diagnoses Date /Time COVID-19 Lab Routine 10/29/2019 9:1 3 AM EDT Health Maintenance Due Date Last Done Comments DTaP,Tdap,and Td Vaccines (1 - Tdap) 1958 Zoster Vaccines (1 of 2) 1997 DIABETES SCREEN EVERY 3 YRS-AGE 45 AND ABOVE 10/14/2009 10/14/2006 LIPID SCREEN EVERY 5 YRS-MEN AGE 35-75 10/15/2011 10/14/2006, 10/14/2006 ABDOMINAL AORTIC ANEURYSM (AAA) SCREENING 2012 Pneumococcal Vaccine: 65+ Years (1 of 2 - PCV13) 2012 *BASIC METABOLIC PANEL (BMP) FOR HTN YEARLY 04/30/2014 *TSH FOR THYROID MEDICATION MONITORING YEARLY 05/08/2014 *DEPRESSION SCREENING,ANNUAL FOR PTS 12 AND OVER 06/09/2014 *COLORECTAL CANCER SCREENING (COLONOSCOPY 10 YEARS; SIGMOIDOSCOPY 5 YEARS; COLOGUARD 3 YEARS; FOBT 1 YEAR),AGES 50-75 11/27/2017 Influenza Vaccine (FLU shot) (Season Ended) 2020 MENINGOCOCCAL (MENACTRA/MENVEO) Aged Out No longer eligible b ased on patient's age to complete this topic documented as of this encounter Implants Not on filedocumented as of this encounter Advance Directives Documents on File Type Date Recorded Patient Customer Engagement Analyst Expl anation Advanced Directive service a codey default Advanced Directive Advanced Directive Advanced Directive Advanced Directive Advanced Directive
--- OUTSIDE RECORDS SUMMARY | 2023-01-13 11:13 | External Medical Summary | Summary of Care ---
Author Name Unknown Organization [place] [address] Care Team Providers Care Transaction Processor Name Role Phone Bony Zurita MD Primary Care Provider [phone] Reason for Visit * Reason Comments Sinus Problem Cough Encounter Details Date Type Department Care Team Description 03/07/2019 Office Visit [facility] [address] [place] [address] Becki Hernandez, PA-C [address] [place] [address] Viral URI with cough* Allergies Active Allergy Reactions Severity Noted Date [...] as of this encounter (statuses as of 03/07/2019) Medications Medication Sig Dispensed Refills Start Date [...] as of this encounter (statuses as of 03/07/2019) Active Problems Problem Noted Date 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 Goiter 07/13/2007 documented as of this encounter (statuses as of 03/07/2019) Social History Tobacco Use Types Packs/Day Years Used Date Former Smoker Cigarettes 0.5 2 Quit: 07/05 Smokeless Tobacco: Never Used Alcohol Use Drinks/Week oz/Week Comments No Sex Assigned at Date Recorded Not on file Job Start Date Occupation Industry Not on file Not on file Not on file Travel History Travel Start Travel End documented as of this encounter Last Filed Vital Signs Vital Sign Reading Time Taken Comments Blood Pressure 132/78 03/07/2019 4:03 PM EDT Pulse 74 03/07/2019 4:03 PM EDT Temperature 36.7 C (98 F) 03/07/2019 4:03 PM EDT Respiratory Rate 18 03/07/2019 4:03 PM EDT Oxygen Saturation 99% 03/07/2019 4:03 PM EDT Inhaled Oxygen Concentration - - Weight 104.4 kg (230 lb 3.2 oz) 03/07/2019 4:03 PM EDT Height 167.6 cm (5' 6") 03/07/2019 4:03 PM EDT Body Mass Index 37.16 03/07/2019 4:03 PM EDT documented in this encounter Patient Instructions * Patient Instructions* Becki Hernandez PA-C - 03/07/2019 4:08 PM EDT Common symptoms of an upper respiratory infection include viral symptoms such as cough, runny nose,sore throat, chest congestion. A low grade fever is common and can be treated with tylenol/advil per package instructions. Symptoms may last for up to 10 days before improvement is noted. Trying over the counter medications such as cough or cold decongestants may help. Coricidin HBP AM/PM Multi-symptom cold for patients that are treated or have high blood pressure. Recommend trying an antihistamine to help dry out congestion, recommend Xyzal in the morning. May try Neilmed Neti Bottle for congestion relief. Suggest using warmed bottled water. May consider Flonase nasal spray. Please read all directions first. One should blow their nose before use. Bottle should be partially in nostril and directed at an angle toward the same side eye wheninhalation occurs. 2 inhalations once a day. No more than 3-5 days of use, as rebound congestion can occur. Continue supportive measures-- Drink plenty of water, rest, cool mist humidifier, hot showers. Improvement of symptoms that again worsen or worsening symptoms longer than 10 days could be a signof progression to bacterial infection such as sinus infections, pneumonia or ear infections and should be followed up by PCP. documented in this encounter Progress Notes * Becki Hernandez PA-C - 03/07/2019 3:39 PM EDT CC: sinus sxs X 4 days Nursing Notes: Radha Tejeda LPN 03/07/19 1609 Signed Manjeet Landry Jr. is a 73 year old male who presents to walk-in clinic today complaining of Chief Complaint Patient presents with Sinus Problem Cough Main Symptoms: Coughing Productive Moist gets worse in the evenings. Client can't lay down in bed due to coughing Cause: Son getting over similar symtoms How long: Symptoms this past Tuesday with Dry Coughing then progressed Tried: OTC cough medications Pt accompanied by: in Room HPI: Manjeet Landry Jr. is a 73 year old male who presents complaining of sinus sxs that have been present for 4day(s) and are unchanged With symptoms including: head congestion, nonproductive cough, productive cough of sputum, sore throat and sinus pressure/pain/drainage Pt has tried OTCs, including: cough medications Pt denies fevers, malaise, fatigue, and chills/sweats. Pt denies sneezing and watery/itchy eyes. Pt denies other viral sxs, including: N/V/D. ROS: Please see HPI for pertinent positives and negatives, otherwise pt denies additional complaints. History: Past Medical History: Diagnosis Date Dyslipidemia Hypertension Prediabetes Retinal tear 07/23/2013 right eye, Laser Dr. Anglin Spinal stenosis, unspecified region other than cervical Spinal Stenosis Past Surgical History: Procedure Laterality Date HAND/FINGER SURGERY NEC 02/1990;11/[address] Chavez KNEE ARTHROSCOPY, DIAGNOSTIC 12/[address] Stroud LASER TRABECULOPLASTY 07/23/2013 Laser Procedure Right Eye, Dr. Anglin REMOVAL OF THYROID GLAND 07/19/[address] Chapman REMOVE NECK SPINE LAMINA, 1-2 SEGS 11/1990 discostomy C5-C6 Dr Carr REPAIR INITIAL INCISIONAL OR VENTRAL HERNIA; REDUCIBLE abd hernia repair Dr Alvarado SHOULDER SURGERY PROCEDURE NEC 11/[address] Cardona SHOULDER SURGERY PROCEDURE NEC 06/[address] Uriarte SHOULDER SURGERY PROCEDURE NEC 08/[address] Uriarte Social History Tobacco Use Smoking status: Former Smoker Packs/day: 0.50 Years: 2.00 Pack years: 1.00 Types: Cigarettes Last attempt to quit: 1970 Years since quittin.7 Smokeless tobacco: Never Used Substance Use Topics Alcohol use: No Social History Substance and Sexual Activity Drug Use No Family History Problem Relation Age of Onset Allergies Mother Arthritis Mother Heart Disorder Mother Stroke Mother Thyroid Disorder Mother Goiter (had thyroid removed when she was in her 50's) Allergies Father Arthritis Father Diabetes Father Glaucoma Father Eye Problems None Denies family hx of retinal problems There is no immunization history on file for this patient. Current Outpatient Medications Medication Sig Dispense Refill rivaroxaban (XARELTO) 15 MG Tablet Take 15 mg by mouth daily. Indications: 15 mg twice daily for 21days; then 20 mg once daily lisinopril (PRINIVIL) 20 MG Tablet Take 20 mg by mouth daily. amLODIPine (NORVASC) 5 MG Tablet ADVAIR DISKUS 250-50 MCG/DOSE IN AEPB One puff twice a day GABAPENTIN 300 MG PO CAPS One capsule twice a day PANTOPRAZOLE SODIUM 40 MG PO TBEC One tablet daily SYNTHROID 175 MCG OR TABS One tablet daily TRAMADOL HCL 50 MG PO TABS One tablet five times a day TYLENOL EX ST ARTHRITIS PAIN 500 MG PO TABS One tablet with the tramadol four times a day ZETIA 10 MG PO TABS One tablet daily CENTRUM SILVER PO TABS 1 TABLET DAILY VITAMIN B-12 1000 MCG PO TABS once a day Review of patient's allergies indicates: Allergen Reactions Adhesive Tape Certain bandages cause skin blisters and peels Catapres [Clonidine Derivatives] Edema Other Generalized swelling Codeine Rash Demerol Hives when given with zofran Oxycodone Itching Sulfa Antibiotics Other (Please comment) Repiratory distress per parents Zofran Hives when given with demerol Zostavax [Zoster Vaccine Live] Other (Please comment) Uses steroids often Physical exam: BP 132/78 | Pulse 74 | Temp (Src) 98 (Tympanic) | Resp 18 | Ht 5' 6" (1.676m) | Wt 230 lbs 3.2 oz (104.418kg) | BMI 37.16 kg/m | BSA 2.2 m | SaO2 99% General Appearance: healthy, alert, no distress, cooperative Ears: External ears normal, Canals clear, TM's Normal Eyes: no proptosis, no periorbital inflammation or soft tissue edema, no orbital cellulitis Nose: no purulent discharge, no septal hematoma, clear rhinorrhea, mucosal edema, mucosal erythema OROPHARYNX: no exudate, no erythema, lips, buccal mucosa, and tongue normal and mucous membranes are moist Neck: normal,supple,no adenopathy Respiratory: clear to auscultation,no rhonchi,no wheezes,no crackles Heart: regular rate,regular rhythm,no murmurs,no rubs,no gallops Skin: warm, dry, no visible rashes or abnormal coloring Assessment/Plan: Viral URI with cough (Primary) ADvised as below: Patient Instructions Common symptoms of an upper respiratory infection include viral symptoms such as cough, runny nose,sore throat, chest congestion. A low grade fever is common and can be treated with tylenol/advil per package instructions. Symptoms may last for up to 10 days before improvement is noted. Trying over the counter medications such as cough or cold decongestants may help. Coricidin HBP AM/PM Multi-symptom cold for patients that are treated or have high blood pressure. Recommend trying an antihistamine to help dry out congestion, recommend Xyzal in the morning. May try Neilmed Neti Bottle for congestion relief. Suggest using warmed bottled water. May consider Flonase nasal spray. Please read all directions first. One should blow their nose before use. Bottle should be partially in nostril and directed at an angle toward the same side eye wheninhalation occurs. 2 inhalations once a day. No more than 3-5 days of use, as rebound congestion can occur. Continue supportive measures-- Drink plenty of water, rest, cool mist humidifier, hot showers. Improvement of symptoms that again worsen or worsening symptoms longer than 10 days could be a signof progression to bacterial infection such as sinus infections, pneumonia or ear infections and should be followed up by PCP. Patient goals for plan of care were discussed. Follow Up: Recommend following up with family provider if current symptoms fail to resolve. If symptoms worsenacutely, please be evaluated in the Emergency Room. Becki Hernandez PA-C [address] [address] documented in this encounter Nursing Notes * Radha Tejeda LPN - 03/07/2019 4:07 PM EDT Manjeet Landry Jr. is a 73 year old male who presents to walk-in clinic today complaining of Chief Complaint Patient presents with Sinus Problem Cough Main Symptoms: Coughing Productive Moist gets worse in the evenings. Client can't lay down in bed due to coughing Cause: Son getting over similar symtoms How long: Symptoms this past Tuesday with Dry Coughing then progressed Tried: OTC cough medications Pt accompanied by: in Room documented in this encounter Plan of Treatment Health Maintenance Due Date Last Done Comments DTaP,Tdap,and Td Vaccines (1 - Tdap) 1966 DIABETES SCREEN EVERY 3 YRS-AGE 45 AND [...] YEAR),AGES 50-75 11/27/2017 Influenza Vaccine (FLU shot) (#1) 2019 MENINGOCOCCAL (MENACTRA) Aged Out No longer eligible based on patient's age to complete this topic documented as of this encounter Implants Not on filedocumented as of this encounter Visit Diagnoses Diagnosis Viral URI with cough- Primary Acute upper respiratory infections of unspecified site documented in this encounter Advance Directives Documents on File Type Date Recorded 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
--- OUTSIDE RECORDS SUMMARY | 2023-01-13 11:13 | External Medical Summary ---
Author Name Unknown Address [facility] [address] [place] [id number] Phone Organization [address]:[place] [address] [place] [id number] Laboratory Report Ordering Provider Test Date Status ASHLEY,CASE 10/29/2019 09:13:00 Final Observation Date Value Abnormality Reference (Units ) Status SPECIMEN SOURCE 10/30/2019 22:47 NASAL TURBINATE Final SARS-CoV-2 ORF1ab region result 10/31/2019 14:33 NEGATIVE NEG Final Performing Location [place] [address] [address] [facility] [address]
--- OUTSIDE RECORDS SUMMARY | 2023-01-13 11:13 | External Medical Summary | Summary of Care ---
Author Name Unknown Organization [place] [address] Phone Care Team Providers Care Asset Manager Name Role Phone Bony Zurita MD Primary Care Provider [phone] Reason for Visit * Reason Comments FOLLOW UP Encounter Details Date Type Department Care Team Description 12/09/2017 Office Visit Podiatry [facility] [address] [facility] [place] [address] Daija Hamlin DPM [facility] [place] [address] Acute left ankle pain*;Peroneal tendinitis of left lower extremity Allergies Active Allergy Reactions Severity Noted Date [...] Other (Please comment) 02/06 Uses steroids often as of this encounter Medications Prescription Sig. Disp. Refills Start Date End Date Status CENTRUM SILVER PO TABS 1 TABLET DAILY Active VITAMIN B-12 1000 MCG PO TABS once a day Active SYNTHROID 175 MCG OR TABS One tablet daily 07/17/2013 Active PANTOPRAZOLE SODIUM 40 MG PO TBEC One tablet daily 04/26/2013 Active ADVAIR DISKUS 250-50 MCG/DOSE IN AEPB One puff twice a day 07/04/2013 Active TRAMADOL HCL 50 MG PO TABS One tablet five times a day Active ZETIA 10 MG PO TABS One tablet daily Active GABAPENTIN 300 MG PO CAPS One capsule twice a day Active TYLENOL EX ST ARTHRITIS PAIN 500 MG PO TABS One tablet with the tramadol four times a day Active amLODIPine (NORVASC) 5 MG Tablet Active lisinopril (PRINIVIL) 20 MG Tablet Take 20 mg by mouth daily. 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 Goiter 07/13/2007 as of this encounter Social History Tobacco Use Types Packs/Day Years Used Date Former Smoker Cigarettes 0.5 2 Quit: 07/05 Smokeless Tobacco: Never Used Alcohol Use Drinks/Week oz/Week Comments No Sex Assigned at Date Recorded Not on file as of this encounter Progress Notes * Daija Hamlin, JANET - 12/09/2017 9:01 AM EDT Formatting of this note may be different from the original. Podiatry Established Note [facility] Name: Adamaris Landry Jr. : 1945 Date: 12/09/2017 REASON FOR VISIT: MRI results SUBJECTIVE: This patient is a 72 year old male who presents today for MRI follow up. Overall pt feeling better. States his pain is now a 2 out of 10. Is able to perform normal daily activities and feels like his pain is improving. No issues with the wart site. Past Medical History: Diagnosis Date Dyslipidemia Hypertension Prediabetes Retinal tear 07/23/2013 right eye, Laser Dr. Anglin Spinal stenosis, unspecified region other than cervical Spinal Stenosis ALLERGIES: Review of patient's allergies indicates: Allergen Reactions Adhesive Tape Certain bandages cause skin blisters and peels Catapres [Clonidine Derivatives] Edema Other Generalized swelling Codeine Rash Demerol Hives when given with zofran Oxycodone Itching Sulfa Antibiotics Other (Please comment) Repiratory distress per parents Zofran Hives when given with demerol Zostavax [Zoster Vaccine Live] Other (Please comment) Uses steroids often REVIEW OF SYSTEMS: Constitutional: Negative for fever, activity change and appetite change. Respiratory: Negative for shortness of breath. Cardiovascular: Negative for chest pain and leg swelling. Gastrointestinal: Negative for nausea, vomiting, abdominal pain and constipation. Musculoskeletal: Negative for joint swelling, arthralgias and gait problem. Skin: Negative for color change, rash and wound. Neurological: Negative for dizziness, weakness and numbness. FOCUSED PODIATRIC EXAM: Vitals: There were no vitals filed for this visit. General: Patient is awake alert oriented to person place time. No apparent distress. Vascular: Capillary Fill Time is less than 5 seconds to digits 1 through 5 on both lower extremities. positive telangiectasias and varicosities. Mild edema to both lower extremities. No clubbing, cyanosis, or edema, otherwise grossly normal, warm, and dry. + Pedal Hair. No pain with compression of calf. Neurologic: Vibratory and sharp/dull sensation diminished. Protective sensation diminished with 5.07 monofilament. Proprioceptive sensation intact. Light touch sensation is diminished Negative Tinel. + paresthesia/burning. Musculoskeletal: MMT 5/5 with no pain on ROM in dorsiflexion, plantarflexion, inversion and eversion to both lower extremities. Around 10 degrees dorsiflexion with the knee extended and flexed. Diminished ankle joint, subtalar joint, midtarsal joint, and metatarsophalangeal joint range of motion. No gross deformities, masses or abnormalities noted. No defect or loss of arch height, no acute deformity, no bruisingor swelling. There is swelling and pain along the lateral aspect of the left ankle. No pain to the lateral ankle ligaments. Dermatological: Normal proximal to distal cooling to the lower extremities. Texture is dry. Turgor is within normallimits. No open wounds or abrasions. DIAGNOSTIC STUDIES: MRI: 1. LEFT high and low ankle ligament thickening without disruption, suggesting the sequela of chronic injury. Intermediate signal within the anterior talofibular ligament may be the sequela of an acute to subacute low grade (grade 1) sprain. 2. Short-segment longitudinal peroneus brevis split tear. Mild common peroneal tenosynovitis. 3. Mild fluid distention of the Gruberi bursa, which may be secondary to bursitis. 4. Intrinsic foot muscular atrophy, likely secondary to varicosities within the distal tarsal tunnel and plantar foot. 5. Chronic plantar fasciitis. ASSESSMENT: 1. Peroneal tendon tear and tenosynovitis. 2. Ankle pain. 3. Neuropathy PLAN: - Pt seen and evaluated - MRI reviewed with pt - Pain improving - Cont normal shoe gear and normal activity - Follow up PRN. Daija Hamlin DPM in this encounter Nursing Notes * Ivana Cohen LPN - 12/09/2017 8:46 AM EDT Pt presents today for a two week return of the left ankle. in this encounter Plan of Treatment Health Maintenance Due Date Last Done Comments DTaP,Tdap,and Td Vaccines (1 - Tdap) 1966 DIABETES SCREEN EVERY 3 YRS- AGE 45 AND ABOVE 10/14/2009 10/14/2006 LIPID SCREEN EVERY 5 YRS-MEN AGE 35-75 10/15/2011, 10/14/2006 PNEUMOCOCCAL ADULT 65 YRS AN D OVER (1 of 2 - PCV13) 2012 *BASIC METABOLIC PANEL (BMP) FOR HTN YEARLY 04/30/2014 *TSH FOR THYROID MEDICATION MONITORING YEARLY 05/08/2014 *DEPRESSION SCREENING, ANNUA L FOR PTS 18 AND OVER 06/09/2014 *COLORECTAL CANCER SCREENING (COLONOSCOPY 10 YEARS; SIGMOIDOSCOPY 5 YEARS; COLOGUARD 3 YEARS; FOBT 1 YEAR),AGES 50-75 11/27/2017 Influenza Vaccine (FLU shot) (#1) 2018 as of this encounter Implants Not on fileas of this encounter Visit Diagnoses Diagnosis Acute left ankle pain - Prim dana Peroneal tendinitis of left lower extremity Other enthesopathy of ankle and tarsus in this encounter
--- OUTSIDE RECORDS SUMMARY | 2023-01-13 11:13 | External Medical Summary | Summary of Care ---
Author Name Unknown Organization [place] [address] Phone Care Team Providers Care Garment Liner Name Role Phone Peter Cat Jr., MD Primary Care Provide r Reason for Referral * Precert (Routine) Status Reason Specialty Diagnoses / Procedures Referred By Contact Referred To Contact Closed Precert Radiology Diagnoses Acute left ankle pain Procedures MRI ANKLE WO CONTRAST Daija Hamlin DPM [address] [place] [address] Reason for Visit * Reason Comments FOLLOW UP Encounter Details Date Type Department Care Team Description 11/25/2017 Office Visit Podiatry [address] [address] Daija Hamlin DPM [address] [place] [address] Acute left ankle pain*;Plantar verruca;Peroneal tendinitis of left lower extremity Allergies Active [...] MG PO TBEC One tablet daily 04/26/2013 Activ e ADVAIR DISKUS 250-50 MCG/DOSE [...] Take 20 mg by mouth daily. Active ATROVENT HFA 17 MCG/ACT IN AERS two puffs as needed 11/25/2017 Discontinued QUINAPRIL HCL 20 MG PO TABS One tablet daily 06/20/2013 11/25/2017 Disconti nubelgica as of this encounter Active Problems Problem [...] Progress Notes * Daija Hamlin, JANET - 12/02/2017 7:43 AM EDT Formatting of this note may be different from the original. Podiatry New Patient Note [facility] Name: Adamaris Landry Jr. : 1945 Date: 11/25/2017 CHIEF COMPLAINT: Vladimir 5th metatarsal lesions and left foot/ankle pain HISTORY OF PRESENT ILLNESS: This patient is a 72 year old male who presents today with multiple pedal complaints. Plantar 5th met lesion: Pt states the lesions have been present for some time. There is pain with ambulation and long periods of standing. Denies any treatment. Feels like he is walking on a pebble. Denies a previous hx of such. Left foot/ankle pain: Pt states over the past several months his left foot/ankle have become painful. States the outside of his ankle swells. Denies any recent trauma however does recall several traumatic incidences when younger. He states the pain and swelling is worse with activity. Feels some stiffness associated with the ankle. Denies any tingling or numbness. No treatment. States he has a hxof bony spurs which have been removed. Past Medical History: Diagnosis Date Dyslipidemia Hypertension Prediabetes Retinal tear 07/23/2013 right eye, Laser Dr. Anglin Spinal stenosis, unspecified region other than cervical Spinal Stenosis Past Surgical History: Procedure Laterality Date HAND/FINGER SURGERY NEC 02/1990;11/[address] Chavez KNEE ARTHROSCOPY, DIAGNOSTIC 12/[address] Stroud LASER SURGERY OF EYE 07/23/2013 Laser Procedure Right Eye, Dr. Anglin REMOVAL OF THYROID GLAND 07/19/[address] Chapman REMOVE NECK SPINE LAMINA, 1-2 SEGS 11/1990 discostomy C5-C6 Dr Carr REPAIR INITIAL INCISIONAL HERNIA abd hernia repair Dr Alvarado SHOULDER SURGERY PROCEDURE NEC 11/[address] Cardona SHOULDER SURGERY PROCEDURE NEC 06/[address] Uriarte SHOULDER SURGERY PROCEDURE NEC 08/2006 left shoulder torn tendon Dr Uriarte Family History Problem Relation Age of Onset Allergies Mother Allergies Father Arthritis Mother Arthritis Father Diabetes Father Heart Disorder Mother Stroke Mother Thyroid Disorder Mother Goiter (had thyroid removed when she was in her 50's) Glaucoma Father Eye Problems None Denies family hx of retinal problems Social History Social History Marital status: Spouse name: N/A Number of children: N/A Years of education: N/A Social History Main Topics Smoking status: Former Smoker Packs/day: 0.50 Years: 2.00 Types: Cigarettes Quit date: 1970 Smokeless tobacco: Never Used Alcohol use No Drug use: No Sexual activity: Not on file Other Topics Concern Not on file Social History Narrative Current Outpatient Prescriptions Medication Sig Dispense Refill lisinopril (PRINIVIL) 20 MG Tablet Take 20 [...] 1000 MCG PO TABS once a day ALLERGIES: Review of patient's allergies indicates: Allergen [...] and constipation. Musculoskeletal: Negative for joint swelling, +arthralgias and gait problem. Skin: Negative for color [...] within normallimits. No open wounds or abrasions. Plantar 5th metatarsal lesions with wart like appeance DIAGNOSTIC STUDIES: Three views of the left ankle: No significant joint malalignment. Scattered [id number] osteoarthritis. No fracture or focal osseous lesion identified. Plantar calcaneal spur. Enthesophyte formation at the Achilles tendon insertion. ASSESSMENT: 1. Peroneal tendonitis 2. Chronic ankle pain 3. Plantar verruca PLAN: Patient seen and examined. Canthrone applied to verucca. Pt instructed to keep dressing C/D/I for 48 hours then ok to remove and shower. Leave open to air or cover with band aid. Recommended lysol to all current shoe gear and foot powder to help diminish Xrays ordered of the left ankle MRI ordered given past hx of trauma and spurring Follow up after study Call with any questions or concerns. Daija Hamlin DPM in this encounter Nursing Notes * River Gay TECH - 11/25/2017 8:05 AM EDT Pt presents today for left foot pain and bilateral plantars warts. in this encounter Plan of Treatment Upcoming Encounters Date Type Specialty Care Team Description 12/09/2017 Office Visit Podiatry Daija Hamlin DPM [address] [place] [address] NATAN GERARD [phone] Scheduled Tests Name Priority Associated Diagnoses Order S chedule BENIGN LESION DESTRUCTION, UP TO 14 LESIONS Routine Acute left ankle pain Plantar verruca Peroneal tendinitis of left lower extremity Ordered: 12/02/2017 Health Maintenance Due Date Last Done Comments [...] THYROID MEDICATION MONITORING YEARLY 05/08/2014 *DEPRESSION SCREENING, AYANA Victoria FOR PTS 18 AND OVER 06/09/2014 *COLORECTAL CANCER SCREENING (COLONOSCOPY 10 YEARS; SIGMOIDOSCOPY 5 YEARS; COLOGUARD 3 YEARS; FOBT 1 YEAR),AGES 50-75 11/27/2017 Influenza Vaccine (FLU shot) (#1) 2017 as of this encounter Implants Not on fileas of this encounter Results * MRI ANKLE WO CONTRAST (11/30/2017 1:43 PM) Specimen Performing Laborator y [facility] Narrative EXAM: MRI LEFT ANKLE WITHOUT CONTRAST HISTORY: Ankle pain, xray multi-site DJD.Left ankle pain- rest and other conservative measures so far have failed.? Gapping at the syndesmosis. Pt stated left ankle "crack" and pain while walking on a flat surface 11/06/2017, now ankle is painful and swelled. COMPARISON: LEFT ankle radiographs dated 11/25/2017. TECHNIQUE: Multiplanar multisequence MRI of the left ankle without contrast was performed. FINDINGS: LIGAMENTS: The anterior and posterior tibiofibular ligaments are intact but demonstrate moderate diffuse thickening. The anterior talofibular ligament is intact and demonstrates thickening and intermediate T2 signal.The calcaneofibular ligament is intact without intrasubstance signal abnormality.The posterior talofibular ligament is intact. The superficial and deep deltoid ligaments and tibiospring ligament are intact.Hypertrophic changes at the origin and insertion of the deep deltoid ligaments, as seen on prior radiograph, are likely sequela of chronic injury.The Lisfranc ligament is intact. PERONEAL TENDONS: There is suggestion of a short-segment peroneus brevis longitudinal split tear at the distal tip of the fibula with reconstitution proximal to the calcaneocuboid joint.There is normal insertion of the peroneus brevis to the base of the 5th metatarsal.The peroneus longus tendon is unremarkable without tendinosis or tear.A small amount of fluid is noted within the common tendon sheath, suggesting tenosynovitis. FLEXOR TENDONS: The posterior tibial, flexor digitorum, and flexor hallux longus tendons are intact.The posterior tibial tendon extends through the the small type 1 os naviculare. EXTENSOR TENDONS: The anterior tibial, extensor digitorum, and extensor hallux longus tendons are intact and unremarkable. ACHILLES TENDON: No tendinosis or tear.Enthesophyte formation is again noted at the Achilles insertion into the calcaneus. PLANTAR FASCIA: There is mild thickening of the proximal central cord of the plantar fascia without associated edema, likely secondary chronic fasciitis.A small to moderate plantar calcaneal heel spur is again noted. MUSCLES: There is severe atrophy of the abductor digiti minimi.Mild edema and atrophy is noted within the abductor hallucis.There is mild atrophy of the proximal visualized interossei. JOINT SPACE/CARTILAGE: No ankle joint effusion. The talar dome and ankle mortise are aligned. No talar dome osteochondral lesion. Unremarkable subtalar joints.Dorsal osteophyte formation is noted at the talonavicular joint. SINUS TARSI: Normal fat signal. BONES: No acute fracture.No suspicious marrow placement. SOFT TISSUES: Prominent venous varicosities are noted within the distal aspect of the tarsal tunnel and traversing intramuscularly along the plantar foot.There is fluid distention of the Gruberi bursa deep to the extensor hallucis longus.Mild subcutaneous edema is noted within the ankle. IMPRESSION: 1. LEFT high and low ankle ligament thickening without disruption, suggesting the sequela of chronic injury.Intermediate signal within the anterior talofibular ligament may be the sequela of an acute to subacute low grade (grade 1) sprain. 2. Short-segment longitudinal peroneus brevis split tear.Mild common peroneal tenosynovitis. 3. Mild fluid distention of the Gruberi bursa, which may be secondary to bursitis. 4. Intrinsic foot muscular atrophy, likely secondary to varicosities within the distal tarsal tunnel and plantar foot. 5. Chronic plantar fasciitis. Procedure Note Interface, Rad In - 11/30/2017 4:45 PM EDT EXAM: MRI LEFT ANKLE WITHOUT CONTRAST HISTORY: Ankle pain, xray multi-site DJD. Left ankle pain- rest and otherconservative measures so far have failed. ? Gapping at the syndesmosis.Pt stated left ankle "crack" and pain while walking on a flat surface11/06/2017, now ankle is painful and swelled. COMPARISON: LEFT ankle radiographs dated 11/25/2017. TECHNIQUE: Multiplanar multisequence MRI of the left ankle without contrast wasperformed. FINDINGS: LIGAMENTS: The anterior and posterior tibiofibular ligaments are intactbut demonstrate moderate diffuse thickening. The anterior talofibularligament is intact and demonstrates thickening and intermediate T2 signal.The calcaneofibular ligament is intact without intrasubstance signalabnormality. The posterior talofibular ligament is intact. Thesuperficial and deep deltoid ligaments and tibiospring ligament areintact. Hypertrophic changes at the origin and insertion of the deepdeltoid ligaments, as seen on prior radiograph, are likely sequela ofchronic injury. The Lisfranc ligament is intact. PERONEAL TENDONS: There is suggestion of a short-segment peroneus brevislongitudinal split tear at the distal tip of the fibula withreconstitution proximal to the calcaneocuboid joint. There is normalinsertion of the peroneus brevis to the base of the 5th metatarsal. Theperoneus longus tendon is unremarkable without tendinosis or tear. Asmall amount of fluid is noted within the common tendon sheath, suggestingtenosynovitis. FLEXOR TENDONS: The posterior tibial, flexor digitorum, and flexor halluxlongus tendons are intact. The posterior tibial tendon extends throughthe the small type 1 os naviculare. EXTENSOR TENDONS: The anterior tibial, extensor digitorum, and extensorhallux longus tendons are intact and unremarkable. ACHILLES TENDON: No tendinosis or tear. Enthesophyte formation is againnoted at the Achilles insertion into the calcaneus. PLANTAR FASCIA: There is mild thickening of the proximal central cord ofthe plantar fascia without associated edema, likely secondary chronicfasciitis. A small to moderate plantar calcaneal heel spur is againnoted. MUSCLES: There is severe atrophy of the abductor digiti minimi. Mildedema and atrophy is noted within the abductor hallucis. There is mildatrophy of the proximal visualized interossei. JOINT SPACE/CARTILAGE: No ankle joint effusion. The talar dome and anklemortise are aligned. No talar dome osteochondral lesion. Unremarkablesubtalar joints. Dorsal osteophyte formation is noted at thetalonavicular joint. SINUS TARSI: Normal fat signal. BONES: No acute fracture. No suspicious marrow placement. SOFT TISSUES: Prominent venous varicosities are noted within the distalaspect of the tarsal tunnel and traversing intramuscularly along theplantar foot. There is fluid distention of the Gruberi bursa deep to theextensor hallucis longus. Mild subcutaneous edema is noted within theankle. IMPRESSION: 1. LEFT high and low ankle ligament thickening without disruption,suggesting the sequela of chronic injury. Intermediate signal within theanterior talofibular ligament may be the sequela of an acute to subacutelow grade (grade 1) sprain. 2. Short-segment longitudinal peroneus brevis split tear. Mild commonperoneal tenosynovitis. 3. Mild fluid distention of the Gruberi bursa, which may be secondary tobursitis. 4. Intrinsic foot muscular atrophy, likely secondary to varicositieswithin the distal tarsal tunnel and plantar foot. 5. Chronic plantar fasciitis. * XR EYE FOREIGN BODY PRE MRI (11/25/2017 8:56 AM) Specimen Performing Laborator y [facility] Impressions IMPRESSION 1. No radiopaque intra-occular foreign body.No significant interval change. 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 COMPARISON Frontal and lateral radiographs dated 11/07/2015.. FINDINGS No radiopaque intra-ocular foreign body.There is a stable hypertrophic RIGHT maxillary sinus.No air-fluid levels within the visualized paranasal sinuses or mastoid air cells.Osseous structures are intact. Drpe-kv-fgjtwsvk disc and LEFT-sided facet arthropathy in the visualized upper cervical spine. 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 COMPARISON Frontal and lateral radiographs dated 11/07/2015.. FINDINGS No radiopaque intra-ocular foreign body. There is a stable hypertrophicRIGHT maxillary sinus. No air-fluid levels within the visualizedparanasal sinuses or mastoid air cells. Osseous structures are intact.Wvli-xx-fuxyrdlu disc and LEFT- sided facet arthropathy in the visualizedupper cervical spine. IMPRESSION IMPRESSION 1. No radiopaque intra-occular foreign body. No significant intervalchange. * XR ANKLE 3 OR MORE VIEWS (11/25/2017 8:37 AM) Specimen Performing Laborator [facility] RADIOLOG[facility] Impressions IMPRESSION 1. Chronic findings as above. 2. No acute superimposed abnormality identified. Narrative EXAM ANKLE, COMPLETE MINIMUM OF 3 VIEWS-LT 11/25/2017 8:37 am HISTORY Provided clinical history: "Acute ankle pain without injury" TECHNIQUE Three weight-bearing views of the left ankle were obtained. COMPARISON No comparisons FINDINGS No significant joint malalignment.Scattered [id number] osteoarthritis.No fracture or focal osseous lesion identified.Plantar calcaneal spur.Enthesophyte formation at the Achilles tendon insertion. Procedure Note Interface, Rad In - 11/28/2017 1:16 PM EDT EXAM ANKLE, COMPLETE MINIMUM OF 3 VIEWS-LT 11/25/2017 8:37 am HISTORY Provided clinical history: "Acute ankle pain without injury" TECHNIQUE Three weight-bearing views of the left ankle were obtained. COMPARISON No comparisons FINDINGS No significant joint malalignment. Scattered [id number]. No fracture or focal osseous lesion identified. Plantarcalcaneal spur. Enthesophyte formation at the Achilles tendoninsertion. IMPRESSION IMPRESSION 1. Chronic findings as above. 2. No acute superimposed abnormality identified. in this encounter Visit Diagnoses Diagnosis Acute left ankle pain - Prim dana Plantar verruca Plantar wart Peroneal tendinitis of left lower extremity Other enthesopathy of ankle and tarsus in this encounter
--- OUTSIDE RECORDS SUMMARY | 2023-01-13 11:13 | External Medical Summary | Continuity of Care Document ---
Author Name Unknown Organization [facility] [address] [id number] Care Team Providers Care Clinical Psychiatrist Name Role Phone Jaguar Renteria Lavern Primary Care Physician [phone] Encounter [facility] [id number] Date(s): 02/10/22 - 02/10/22 [facility] [address] [id number] Encounter Diagnosis History of basal cell cancer(Discharge Diagnosis) - 02/10/22 Other viral warts(Discharge Diagnosis) - 02/10/22 Discharge Disposition: Home or Self Care Attending Physician: MD Hanley David L Allergies, Adverse Reactions, Alerts Substance Reaction Severity Status codeine itching rash Active sulfa drugs respiratory distress Active Zofran hives Active Catapres generalized swelling Active Demerol HCl generalized swelling Active Adhesive bandage blisters Active Zostavax not recommended Active oxyCODONE itching rash Active Assessment and Plan Extracted from: Title:Clinical Document Author:MD Hanley David L Date:02/10/22 OUTPATIENT NOTE Name: ADAMARIS ALNDRY Patient Number:[id number] : 1945 Date of Service: 02/10/2022 _ Mr Landry is in for recheck. He notes a lesion on his right wrist. Does have a distant past history basal cell carcinoma on the face. He is outside quite a bit but he does use sun protection. Physical examination: He is a well-developed well-nourished white male with type II skin. Alert and oriented x3. Examination of scalp face ears neck back chest abdomen hands arms legs feet and buttocks reveal 3 mm verruca hyperkeratotic papule in the right ulnar wrist. Some brown verrucal hyperkeratotic papules on the trunk but no suspicious lesions. Impression: #1 seborrheic keratosis on the trunk. #2 no evidence for new or recurrent basal cell carcinoma. #3 wart on the right ulnar wrist. Plan: After discussing the procedure risk benefits and scarring, he gives verbal consent for cryotherapy. Cryotherapy applied to the lesion on the right wrist. He tolerated very well. Wound care instructions given. Sun protection was stressed. Return for recheck in 1 year. Medications Advair Diskus 250 mcg-50 mcg Start: 02/09/21 9:15:00 EDT, 1 puff, PO, bid, Disp# 1 each Start Date: 02/09/21 Stop Date: 03/11/21 Status: Ordered Atrovent MDI 17 mcg/inh HFA Start: 12/31/19 13:42:00 EDT, 1 puff, inhaled, q6h, PRN: shortness of breath Start Date: 12/31/19 Status: Ordered Centrum Silver oral tablet Start: 01/20/18 14:10:00 EDT, 1 tab, PO, Daily Start Date: 01/20/18 Status: Ordered ferrous sulfate 324 mg (65 mg elemental iron) oral delayed release tablet Start: 12/31/19 13:44:00 EDT, 1 tab, PO, Daily Start Date: 12/31/19 Status: Ordered gabapentin 300 mg oral capsule Start: 01/20/18 14:09:00 EDT, 1 cap, PO, bid Start Date: 01/20/18 Status: Ordered Metoprolol Succinate ER 50 mg oral tablet, extended release Start: 12/31/19 13:41:00 EDT, See Instructions, take 135 mg PO daily Start Date: 12/31/19 Status: Ordered pantoprazole 40 mg oral delayed release tablet Start: 01/20/18 14:09:00 EDT, 1 tab, PO, Daily Start Date: 01/20/18 Status: Ordered Prinivil 20 mg oral tablet Start: 02/09/21 9:16:00 EDT, 1 tab, PO, Daily Start Date: 02/09/21 Status: Ordered Synthroid 150 mcg (0.15 mg) oral tablet Start: 12/31/19 13:39:00 EDT, 1 tab, PO, Daily Start Date: 12/31/19 Status: Ordered traMADol 50 mg oral tablet Start: 01/20/18 14:09:00 EDT, 1 tab, PO, qid Start Date: 01/20/18 Status: Ordered triamcinolone 0.1% topical cream Start: 11/03/21 12:15:00 EDT, 1 appl, topical, bid, Disp# 120 g, Refills: 2, apply to affected areas on the legs until clear, Pharmacy: [facility] Start Date: 11/03/21 Status: Ordered Tylenol 500 mg oral tablet Start: 01/20/18 14:10:00 EDT, 1 tab, PO, qid, 650mg dose, PRN: as needed for fever Start Date: 01/20/18 Status: Ordered Vitamin B12 1000 mcg oral tablet Start: 01/20/18 14:11:00 EDT, 1 tab, PO, Daily Start Date: 01/20/18 Status: Ordered Voltaren 1% topical gel Start: 02/10/22 9:17:00 EDT, 1 appl, topical, qid, PRN: Pain Start Date: 02/10/22 Status: Ordered Xarelto 20 mg oral tablet Start: 01/20/18 14:09:00 EDT, 1 tab, PO, qPM Start Date: 01/20/18 Status: Ordered Zetia 10 mg oral tablet Start: 01/20/18 14:09:00 EDT, 1 tab, PO, Daily Start Date: 01/20/18 Status: Ordered Mental Status 02/10/22 Barriers to Learning one year None evide nt Mandatory Health Literacy Documentation Yes Health Literacy Communication Barriers N ever Primary Language Serbian Problem List Condition Confirmation Course Effective Dates Status Health St [facility] Informant Afib Confirmed Active Chronic obstructive pulmonary disease Confirmed Active History of pulmonary embolism Confirmed Active History of nonmelanoma skin cancer Confirmed Active COPD type A Confirmed Active Skin lesion Confirmed Active Sleep apnea Confirmed Active Diagnosis Diagnosis Type Effective Dates Health Status Cl inical Service Informant Other viral warts Discharge Diagnosis 02/10/22 History of basal cell cancer Discharge Diagnosis 02/10/22 Procedures Procedure Date Related Diagnosis Body Site Status Procedure 1 2017 Completed Repair of knee joint 2 2014 Co mpleted Mohs surgery 2014 Completed Surgery 3 2007 Completed Shoulder reconstruction 4 2006 Completed Procedure 5 2005 Completed Shoulder reconstruction 6 2002 Completed Reattachment of tendon 1992 Co mpleted History of spinal fusion 1990 Completed Repair of hernia of abdominal wall 1990 Completed Surgical revision 1990 Complet ed Surgery 7 1989 Completed 1DVT left calf 2right knee 3thyroidostomy/tumor removal 4Left shoulder 5Left knee ortho repair 6right shoulder 7left hand reconstruction Social History Social History Type Response Smoking Status Former Smoker, quit > 1 yr Sex Male Patient Care team information Personnel Name: DO Renteria Philip A Address: Address: [address] [place] [address]
--- OUTSIDE RECORDS SUMMARY | 2023-01-13 11:13 | External Medical Summary | Continuity of Care Document ---
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 Stasis dermatitis(Discharge Diagnosis) - 11/03/21 Discharge Disposition: Home or Self Care Attending Physician: MD Baltazar Thomas A Referring Physician: MD Baltazar Thomas A Allergies, Adverse Reactions, Alerts Substance Reaction Severity Status codeine itching rash Active sulfa drugs respiratory distress Active Zofran hives Active Catapres generalized swelling Active Demerol HCl generalized swelling Active Adhesive bandage blisters Active Zostavax not recommended Active oxyCODONE itching rash Active Assessment and Plan Extracted from: Title:Clinical Document Author:MD Delaney, Aissatou Puckett Date:11/03/21 OUTPATIENT NOTE Name: ADAMARIS LANDRY Patient Number:1 [id number] : 1945 Date of Service: 11/03/2021 _ Adamaris Landry returns for evaluation of a new onset problem of 5 days duration. He first developed a minimally pruritic eruption in the area of a right knee brace which is regularly worn. He subsequently developed additional lesions present on the left young. At this time, he had been digging holes for 2 trees that he was planting. He has a prior history of deep venous thrombosis in both legs. He has a prior history of cellulitis in the right leg. Review of systems medications allergies as noted on the chart. Patient is in stable health notes no other new skin problems. Examination reveals pleasant well-nourished white male type II skin was alert and oriented x3 with normal mood and affect. Examination of the right leg reveals a nummular erythematous patch present on the proximal young adjacent to the knee corresponding to an area rubbed by his knee brace. The left young is remarkable for purpuric lesions and a annular array suggestive of a striking injury to the young. Both areas are clinically consistent with pigmented purpuric eruption. No historical evidence or evidence on examination of deep venous thrombosis or cellulitis at this time. Patient was advised to elevate the legs and to apply triamcinolone cream on a twice daily basis until clear. He may benefit from the use of compression stockings if on his feet for a long time. He will let us know if condition worsens or does not improve over the next couple of weeks. Medications Advair Diskus 250 mcg-50 mcg Start: 01/20/18 14:09:00 EDT, 1 puff, PO, bid, Disp# 1 inhaler Start Date: 01/20/18 Stop Date: 02/19/18 Status: Ordered Advair Diskus 250 mcg-50 mcg Start: 02/09/21 [...] PO, bid Start Date: 01/20/18 Status: Ordered lisinopril 20 mg oral tablet Start: 12/31/19 13:37:00 EDT, 1 tab, PO, Daily Start Date: 12/31/19 Status: Ordered Metoprolol Succinate ER 50 mg oral tablet, extended release Start: 12/31/19 13:41:00 EDT, 1 tab, PO, Daily Start Date: 12/31/19 Status: Ordered pantoprazole 40 [...] PO, Daily Start Date: 01/20/18 Status: Ordered Xarelto 20 mg oral tablet Start: 01/20/18 14:09:00 EDT, 1 tab, PO, qPM Start Date: 01/20/18 Status: Ordered Zetia 10 mg oral tablet Start: 01/20/18 14:09:00 EDT, 1 tab, PO, Daily Start Date: 01/20/18 Status: Ordered Mental Status 11/03/21 Barriers to Learning one year None evide nt Mandatory Health Literacy Documentation Yes Health Literacy Communication Barriers N ever Primary Language Macanese Problem List Condition Effective Dates Status Health Status Inform ant Afib(Confirmed) Active History of nonmelanoma skin cancer(Confirmed) Active Skin lesion(Confirmed) Active Sleep apnea(Confirmed) Active Diagnosis Diagnosis Type Effective Dates Health Status Clinical Service Informant Pigmented purpuric dermatosis Discharge Diagnosis 11/03/21 Stasis dermatitis Discharge Diagnosis 11/03/21 Procedures Procedure Date Related Diagnosis Body Site Status Procedure 1 2017 Completed Repair of knee joint 2 2014 Co mpleted Mohs surgery 2014 Completed Surgery 3 2007 Completed Shoulder reconstruction 4 2006 Completed Procedure 5 2005 Completed Shoulder reconstruction 6 2002 Completed Reattachment of tendon 1993 Co mpleted History of spinal fusion 1990 Completed Repair of hernia of abdominal wall 1990 Completed Surgical revision 1990 [facility] ed Surgery 7 1989 Completed 1DVT left calf 2right knee 3thyroidostomy/tumor removal 4Left shoulder 5Left knee ortho repair 6right shoulder 7left hand reconstruction Social History Social History Type Response Smoking Status Never smoked cigaret ibeth Sex Male Care Team Personnel Name: DO Renteria Philip A Address: [address] [place] [id number] [place]
--- OUTSIDE RECORDS SUMMARY | 2023-01-13 11:13 | External Medical Summary | Summary of Care ---
Author Name Unknown Organization [place] [address] Phone Care Team Providers Care Umbrella Repairer Name Role Phone Bony Zurita MD Primary Care Provider [phone] Reason for Visit * Reason Comments FOLLOW UP swelling and pain in bottom of left foot Encounter Details Date Type Department Care Team Description 01/13/2018 Office Visit Podiatry [facility] [address] [facility] [address] [place] [id number] Daija Hamlin, JANET [address] [facility] [place] [id number] Chronic pain of left ankle*;Acute deep vein thrombosis (DVT) of tibial vein of left lower extremity (HCC) Allergies Active Allergy Reactions Severity Noted Date [...] Take 20 mg by mouth daily. Active rivaroxaban (XARELTO) 15 MG TabletIndications:15 mg twice daily for 21 days; then 20 mg once daily Take 15 mg by mouth daily. Indications: 15 mg twice daily for 21 days; then 20 mg once daily Active as of this encounter Active Problems [...] of this encounter Progress Notes * Daija Hamlin DPM - 01/27/2018 7:33 AM EDT Formatting of this note may be different from the original. Podiatry Established Note [facility] Name: Adamaris Landry Jr. : 1945 Date: 01/13/2018 REASON FOR VISIT: LLE pain/edema SUBJECTIVE: This patient is a 72 year old male who presents today for follow up of LLE pain and edema. Pt states about 2 weeks ago he noted increased pain and edema to the LLE. States he was seen in quick care and then sent to the ED for evaluation where it was discovered he had a DVT. Pt states the clot is in the "artery" per his PCP although states he has a DVT. He was inquiring as to if the chronic MRI findings could be related to the DVT/ Blood clot. He would also like more information regarding his blood thinner. He states nobody explained anything to him. Past Medical History: Diagnosis Date Dyslipidemia Hypertension [...] breath. Cardiovascular: Negative for chest pain and +leg swelling. Gastrointestinal: Negative for nausea, vomiting, abdominal [...] Vascular: Capillary Fill Time is less than 3 seconds to digits 1 through 5 on both lower extremities. + mild discoloration with mild telangiectasias and varicosities. +1 edema to the LLE. No pain with compression of calf. Neurologic: Vibratory and sharp/dull sensation diminished. Protective sensation diminished with 5.07 monofilament. Proprioceptive sensation intact. Light touch sensation is diminished Negative Tinel. + paresthesia/burning. Musculoskeletal: No gross deformities, masses or abnormalities noted. No defect or loss of arch height, no acute deformity, no bruising or swelling. Dermatological: Normal proximal to distal cooling to the lower extremities. Texture is dry. Turgor is within normallimits. No open wounds, lesions or abrasions. DIAGNOSTIC STUDIES: None ASSESSMENT: 1. Chronic ankle pain 2. DVT PLAN: - Pt seen and evaluated - Unlikely chronic changes seen on MRI are related to the DVT - Per pt no other work up is being performed - He states he is currently on Xarelto but has received any information - I did instruct the pt to discuss his medications questions with his PCP as I am not the one who is treating his DVT - Overall he denies any pain today related to the MRI findings - He states he does have some tingling and numbness which is new- this could be related to the edema in his leg. - Follow up PRN Daija Hamlin DPM in this encounter Nursing Notes * Cherie Bardales RN - 01/13/2018 2:04 PM EDT Follow-up of left foot. New swelling and pain in bottom of foot. On 12/24 got results that he has a blood clot in the tibial artery of his left leg. Cherie Bardales RN MSN Clinic Nurse Microbiology Laboratory Manager CATALINO Cosme in this encounter Plan of Treatment Health Maintenance Due Date Last Done Comments DTaP,Tdap,and Td Vaccines (1 - Tdap) 1966 Zoster Vaccines HMT (1 of 2) 1997 DIABETES SCREEN EVERY 3 YRS- AGE 45 AND ABOVE 10/14/2009 10/14/2006 LIPID SCREEN EVERY 5 YRS-MEN AGE 35-75 10/15/2011, 10/14/2006 PNEUMOCOCCAL ADULT 65 YRS AN D OVER (1 of 2 - PCV13) 2012 *BASIC METABOLIC PANEL (BMP) FOR HTN YEARLY 04/30/2014 *TSH FOR THYROID MEDICATION MONITORING YEARLY 05/08/2014 *DEPRESSION SCREENINGAYANA FOR PTS 18 AND OVER 06/09/2014 *COLORECTAL CANCER SCREENING (COLONOSCOPY 10 YEARS; SIGMOIDOSCOPY 5 YEARS; COLOGUARD 3 YEARS; FOBT 1 YEAR),AGES 50-75 11/27/2017 Influenza Vaccine (FLU shot) (#1) 2017 as of this encounter Implants Not on fileas of this encounter Visit Diagnoses Diagnosis Chronic pain of left ankle - Primary Acute deep vein thrombosis ( DVT) of tibial vein of left lower extremity (HCC) in this encounter
--- OUTSIDE RECORDS SUMMARY | 2023-01-13 11:13 | External Medical Summary | Continuity of Care Document ---
Author Name Unknown Organization [facility] [address] [facility] 2 Address [address] [address] Care Team Providers Care Network Support Technician Name Role Phone Dexter Jaguar Puckett Primary Care Physician [phone] Encounter [facility] MAKENNA [id number] Date(s): 02/09/21 - 02/09/21 [facility] [address] [facility] [address] [id number] Encounter Diagnosis SK (seborrheic keratosis)(Discharge Diagnosis) - 02/09/21 History of basal cell cancer(Discharge Diagnosis) - 02/09/21 Discharge Disposition: Home or Self Care Attending Physician: MD Hanley David L Referring Physician: MD Hanley David L Allergies, Adverse Reactions, Alerts Substance Reaction Severity Status codeine itching rash Active sulfa drugs respiratory distress Active Zofran hives Active Catapres generalized swelling Active Demerol HCl generalized swelling Active Adhesive bandage blisters Active Zostavax not recommended Active oxyCODONE itching rash Active Assessment and Plan Extracted from: Title:Clinical Document Author:MD Hanley David L Date:02/09/21 OUTPATIENT NOTE Name: ADAMARIS LANDRY Patient Number:1 [id number] : 1945 Date of Service: 02/09/2021 _ Mr Landry comes in for recheck. He does have a distant past history of basal cell carcinoma on the face. He is outdoors quite a bit. He does use sun protection on a regular basis. He does note a lesion in the middle of the right cheek present for about 7 weeks. Physical examination: He is a well-developed well-nourished white male type II skin. He is alert and oriented x3. Examination of scalp face ears neck back chest abdomen hands arms legs feet and buttocks reveal few moreno papules on the trunk up to 6 mm in diameter. He has a 5 mm brown verrucal hyperkeratotic papule in the right scapula. He has a 2 mm erythematous papule the middle of the right cheek. Impression: #1 benign nevi. #2 seborrheic keratosis on the right scapula. #3 no evidence for new recurrent basal cell carcinoma. #4 inflammatory papule in the right cheek. Plan: No treatment. Sun protection was stressed. Return for recheck [...] PO, qid Start Date: 01/20/18 Status: Ordered Tylenol 500 mg oral tablet [...] Start Date: 01/20/18 Status: Ordered Mental Status 02/09/21 Barriers to Learning one year None evide nt Mandatory Health Literacy Documentation Yes Health Literacy Communication Barriers N ever Primary Language Romanian Problem List Condition Effective Dates Status Health Status Inform ant Afib(Confirmed) Active History of nonmelanoma skin cancer(Confirmed) Active Skin lesion(Confirmed) Active Sleep apnea(Confirmed) Active Diagnosis Diagnosis Type Effective Dates Health Status Cl inical Service Informant SK (seborrheic keratosis) Discharge Diagnosis 02/09/21 History of basal cell cancer Discharge Diagnosis 02/09/21 Procedures Procedure Date Related Diagnosis Body Site [...]
== END 2023-01-08 14:21 | disposition home or self-care (01) | DRG 641 ==
LOC: ED 08:33 → EDINP 14:36 → 2N 16:19